=== PATIENT | female | born 1960 | race Caucasian/White ===

== ENCOUNTER 2017-07-12 15:13 | Outpatient (CLI) | payer OTHER | END 2017-07-12 15:14 | disposition home or self-care (01) | LOC: BICMAMMO 15:13 | PROVIDERS: ATTEND Family Medicine | DX: N63.20 Unspecified lump in the left breast, unspecified quadrant (principal); R92.1 Mammographic calcification found on diagnostic imaging of breast; Z80.3 Family history of malignant neoplasm of breast | CPT/HCPCS: 77066; G0279 ==

== ENCOUNTER 2017-07-20 08:37 | Outpatient (CLI) | payer OTHER ==
[2017-07-20] MEDS ORDERED: ISOVUE-370 76%-LOCM 1 ML ONE (13:24)
[2017-07-20] MEDS ORDERED: Gadobenate Dimeglumine 529 MG/1 ML (20ML VIAL) ONE (13:33)
== END 2017-07-20 08:38 | disposition home or self-care (01) ==
LOC: BICCT 08:37
PROVIDERS: ATTEND Surgery
DX: N63.10 Unspecified lump in the right breast, unspecified quadrant (principal); N63.20 Unspecified lump in the left breast, unspecified quadrant; K46.9 Unspecified abdominal hernia without obstruction or gangrene; I70.0 Atherosclerosis of aorta; Z90.49 Acquired absence of other specified parts of digestive tract; Z90.710 Acquired absence of both cervix and uterus; Z90.89 Acquired absence of other organs
CPT/HCPCS: 74177; A9579; C8908

== ENCOUNTER 2017-08-24 10:54 | Day surgery (SDC) | payer OTHER ==
[2017-08-23 16:43] VITALS: BMI 21.5
[2017-08-24] MEDS ORDERED: Albuterol Sulfate 1.25 MG/3 ML NEB ONE (12:48)
[2017-08-24] MEDS ORDERED: PHENYLEPHRINE-NS 100 MCG/ML 10 ML SYRINGE ONE (13:43)
[2017-08-24] MEDS ORDERED: Lidocaine 1% PF 5 ML VIAL ONE (13:43)
[2017-08-24] MEDS ORDERED: PROPOFOL 200 MG/20 ML VIAL ONE (13:43)
--- NOTE | 2017-08-24 14:18 | OP ---
DATE OF PROCEDURE: 08/24/2017 TITLE OF PROCEDURE: Colonoscopy with snare polypectomy. PREPROCEDURE DIAGNOSES: 1. High risk colon screening. 2. Family history of colon cancer in her sister at age 73. 3. Irregular bowel function. POSTPROCEDURE DIAGNOSES: 1. Exam to ileocecal valve; suboptimal bowel preparation. 2. Mild to moderate sigmoid diverticulosis. 3. Four diminutive rectal polyps removed by cold snare technique, two of the polyps were not retriev ed. 4. Diminutive sessile polyps in the sigmoid colon and descending colon (5 mm in size), removed by ho t snare electrocautery. 5. Diffusely tortuous colon. 6. Nonbleeding small internal hemorrhoids. 7. Poor bowel preparation, which limited exam for polyps less than 6 mm in size. PROCEDURE IN DETAIL: Written informed consent was obtained. The patient was brought to the endoscop y suite. Total intravenous anesthesia was administered by Ms. Yuridia Wolfe CRNA. The patient was placed in the left lateral decubitus position. A digital rectal exam was performed, which reveal ed small external tags. A Pentax video colonoscope was inserted through the anal canal and advanced under direct visualization to the ileocecal valve. Due to the redundancy of the colon and a poor bow el preparation, the colonoscope could not be advanced safely into the cecum. Endoscopic findings rev ealed frequent diverticular orifices without active bleeding in the sigmoid colon. In the rectum, fo ur diminutive sessile polyps were identified and removed. The largest polyp was 3 mm in diameter. T wo of the four polyps were retrieved for histology. Two additional polyps that were sessile were chuck ntified in the proximal sigmoid and descending colon. These polyps measured about 5 mm in size. Eac h was removed by snare electrocautery. Tissue was retrieved for pathology. No other synchronous gaviota yps were identified. Due to the presence of solid stool scattered throughout the colon and brown fec al liquid, exam of the mucosa was limited. A retroflex exam in the rectum demonstrated small interna l hemorrhoids that were not bleeding. The colon was decompressed as the colonoscope was removed from the patient. She was transferred to the day stay surgery area for post-procedure monitoring. There were no immediate complications. RECOMMENDATIONS: 1. Await pathology results. 2. Ask the patient to call me in 1 week for pathology results. 3. High fiber diet. 4. Sitz bath t.i.d. as needed for hemorrhoids. 5. Would recommend Citrucel or Metamucil 1 tablespoon q.a.m. after breakfast and MiraLax 17 grams in 8 ounces of water every evening. 6. Follow up in GI clinic in 3-4 weeks. 7. Suggest repeating a colonoscopy in 3 years pending pathology results of the resected polyps.
== END 2017-08-24 14:45 | disposition home or self-care (01) ==
LOC: SDC 10:54
PROVIDERS: ATTEND Internal Medicine Gastroenterology
PROC: 0DBM8ZX Excision of Descending Colon, Via Natural or Artificial Opening Endoscopic, Diagnostic (ICD-10-PCS; principal; 2017-08-24)
PROC: 0DBN8ZX Excision of Sigmoid Colon, Via Natural or Artificial Opening Endoscopic, Diagnostic (ICD-10-PCS; principal; 2017-08-24)
PROC: 0DBP8ZX Excision of Rectum, Via Natural or Artificial Opening Endoscopic, Diagnostic (ICD-10-PCS; principal; 2017-08-24)
DX: F32.9 Major depressive disorder, single episode, unspecified; Z79.899 Other long term (current) drug therapy; K64.8 Other hemorrhoids; Z91.018 Allergy to other foods; Z79.82 Long term (current) use of aspirin; K57.30 Diverticulosis of large intestine without perforation or abscess without bleeding; I50.9 Heart failure, unspecified; K63.5 Polyp of colon; Z88.8 Allergy status to other drugs, medicaments and biological substances; G47.30 Sleep apnea, unspecified; Z88.1 Allergy status to other antibiotic agents; E11.9 Type 2 diabetes mellitus without complications; Z88.5 Allergy status to narcotic agent; K63.89 Other specified diseases of intestine; F17.210 Nicotine dependence, cigarettes, uncomplicated; I25.2 Old myocardial infarction; F41.9 Anxiety disorder, unspecified; E07.9 Disorder of thyroid, unspecified; Z80.0 Family history of malignant neoplasm of digestive organs; M79.7 Fibromyalgia; Z91.010 Allergy to peanuts; M19.90 Unspecified osteoarthritis, unspecified site; J44.9 Chronic obstructive pulmonary disease, unspecified; K62.1 Rectal polyp; Z79.4 Long term (current) use of insulin
CPT/HCPCS: 36416; 88305; J2001; J2704

== ENCOUNTER 2017-12-28 16:05 | Inpatient (IN) | payer OTHER ==
[2017-12-28 17:10] LABS: #Eosinphils 0.1 thou/uL (0.0-0.7); #Lymphocytes 1.9 thou/uL (1.20-3.40); #Monocytes 0.6 thou/uL (0.11-0.59); #Neutrophils 9.8 thou/uL (1.40-6.50); %Basophils 0.2 % (0.0-1.0); %Eosinophils 0.8 % (0.0-10.0); %Lymphocytes 15.2 % (21.0-51.0); %Monocytes 5.1 % (0.0-10.0); %Neutrophils 78.6 % (42.0-75.0); Hemoglobin 14.3 g/dL (12.0-16.0); Mean Corpuscular HGB CONC 34.7 g/dL (32.0-36.0); Mean Corpuscular Hemoglobin 31.8 pg (27.0-31.0); Mean Corpuscular Volume 91.6 fL (78.0-98.0); Mean Platelet Volume 6.8 fL (7.4-10.4); Platelet Count 236 thou/uL (130-400); RBC Distribution Width 13.3 % (11.5-14.5); Red Blood Cell (RBC) Count 4.49 mill/uL (4.20-5.40); White Blood Cell (WBC) Count 12.5 thou/uL (4.8-10.8)
[2017-12-28 17:37] LABS: ALT (SGPT) 19 U/L (8-55); AST (SGOT) 11 U/L (5-34); Albumin 3.9 g/dL (3.5-5.0); Alkaline Phosphatase 124 U/L (40-150); Anion Gap 12 mmol/L (10-20); BUN (Urea Nitrogen) 11 mg/dL (9.8-20.1); Bilirubin, Total 0.4 mg/dL (0.2-1.2); Calc. Creatinine Clearance 0 mL/min (70-130); Calcium 9.4 mg/dL (7.8-10.44); Carbon Dioxide 31 mmol/L (22-29); Chloride 95 mmol/L (98-107); Estimated GFR-MDRD 50; Globulin 4.3 g/dL (2.4-3.5); Glucose 291 mg/dL (70-105); Protein, Total 8.2 g/dL (6.0-8.3); Sodium 134 mmol/L (136-145)
[2017-12-28] MEDS ORDERED: Fentanyl 100 MCG/2 ML VIAL ONE ×2 (17:51→18:47)
--- NOTE | 2017-12-28 18:20 | CT ---
CT ABDOMEN AND PELVIS WITH IV CONTRAST: 12/28/17 INDICATION: History of abdominal pain exacerbated in the last three to four days. COMPARISON: Prior exam dated 07/24/15. FINDINGS: There is a small right pleural effusion. There is peripancreatic inflammatory stranding present. The pancreatic parenchyma enhances. No drainable fluid collection is evident. Gallbladder is surgically absent. There is mild fatty infiltration of the liver, Kidneys are normal appearing. There is moderat e calcification involving the abdominal and pelvic vasculature. There is a moderate amount of retaine d stool within the colon. The uterus is surgically absent. No free fluid is evident. There is scatter ed degenerative and osteoarthritic change. IMPRESSION: 1. Findings of noncomplicated acute pancreatitis. 2. Small right pleural effusion. 3. Fatty liver. 4. Moderate amount of retained stool within the colon. 5. Other chronic findings as above . POS: DEBBY
[2017-12-28 18:40] LABS: CKMB 0.8 ng/mL (0-6.6); Troponin I Less than 0.010 ng/mL (< 0.028)
[2017-12-28 18:45] LABS: CK (CPK) 69 U/L (29-168); Lipase 31 U/L (8-78)
[2017-12-28 18:58] LABS: Bilirubin Negative (Negative); Blood, Urine Negative (Negative); Clarity CLEAR (Clear); Glucose, Urine (Dipstick) 250 mg/dL (Negative); Leukocyte Negative (Negative); Nitrite Negative (Negative); Protein, Urine (Dipstick) Negative (Neg-Trace); Specific Gravity, Urine 1.035 (1.002-1.036)
[2017-12-28] MEDS ORDERED: Ondansetron HCl/PF 4 MG/2 ML Vial IVP PRN (20:22)
[2017-12-28] MEDS ORDERED: Morphine 4 MG/ML VIAL SLOW IVP PRN ×2 (20:22→20:52)
[2017-12-28] MEDS ORDERED: Ondansetron ODT 4 MG TAB SL PRN (20:22)
[2017-12-28] MEDS ORDERED: D5 1/2 NS w/20 mEq KCL 1,000 ML IV SCH (20:30)
[2017-12-28] MEDS ORDERED: Ondansetron ODT 4 MG TAB PO PRN (20:45)
[2017-12-28] MEDS ORDERED: Milk Of Magnesia 30 ML UDCUP PO PRN (20:45)
[2017-12-28] MEDS ORDERED: Acetaminophen 325 MG TAB PO PRN (20:45)
[2017-12-28] MEDS ORDERED: Senokot 8.6 MG TAB PO PRN (20:45)
[2017-12-28] MEDS ORDERED: Nitroglycerin 0.4 MG TAB (25 Tab Bottle) SL PRN (20:53)
[2017-12-28] MEDS ORDERED: PROVENTIL INHALER 6.7 G (200 INHALATIONS) INH PRN (20:53)
[2017-12-28] MEDS ORDERED: Lidocaine 5% Patch TD PRN (20:53)
[2017-12-28] MEDS ORDERED: HumaLOG 300 UNITS/3 ML VIAL SC PRN ×2 (20:56)
[2017-12-28] MEDS ORDERED: Dextrose 5% in Water 1,000 ML IV PRN (20:56)
[2017-12-28] MEDS ORDERED: Dextrose 50% Abboject 50 ML SYRINGE SLOW IVP PRN (20:56)
[2017-12-28] MEDS ORDERED: Lidocaine Patch Removal TOP PRN (20:59)
[2017-12-28] MEDS ORDERED: Insulin Glargine 30 UNITS in Pre-Filled Syringe SC SCH (21:00)
[2017-12-28] MEDS: Lactated Ringer's 1,000 ML IV SCH (21:21)
[2017-12-28] MEDS: Nicotine 14 MG PATCH TD SCH (21:23)
--- NOTE | 2017-12-28 22:37 | PDOC.EVN ---
Attending Addendum - Attending Addendum Date/Time: 12/28/17 6956 I personally evaluated the patient and discussed the management with Dr. Vyas/ Nadege. I agree with the History, Examination, Assessment and Plan documented in their H &P with any addition or exceptions noted below. Patient is 57 yo F with PMH chronic pancreatitis with multiple hospitalizations for similar symptoms, DM, HTN, dCHF, COPD who presents with several day history of worsening abdominal pain. Reports pain with eating and drinking associated with nausea that has gotten worse today and with radiation to her back. Similar in nature to previous hospitalizations for pancreatitis. She is unaware of why she has developed multiple bouts of pancreatitis, but each has been confirmed on CT and has gotten better with typical treatment. She does have a history of tobacco usage as well as alcohol. On exam, her vitals are stable. She is chronically on 4L of O2 and is at her baseline. Abdomen exam pertinent for positive bowel sounds, mid epigastric tenderness to palpation. She has mild elevation in WBC, normal lipase and amylase (similar to previous bouts of pancreatitis). CT scan shows uncomplicated pancreatitis. Patient to be admitted for the followin. 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 My only explanation for normal enzyme levels would be that she has some degree of exocrine pancreas insufficiency as well. Will treat with IVF, pain control, and NPO status. If does not improve, will consider GI consult at that time. May need outpatient GI referral due to multiple bouts of similar issues. 2. COPD- oxygenation stable. Continue to monitor. 3. dCHF- will need to monitor for signs of volume overload. Will begin IV lasix if that becomes an issue. 4. DM- insulin regimen to keep blood sugars well controlled, holding oral medications.
--- NOTE | 2017-12-28 22:51 | PDOC.FPRHP ---
Addendum entered and electronically signed by Сергей Light MD 12/29/17 07:52: Addendum for PMHx and Vitals: Med Hx: Levothyroxine 175 QD, Aspirin 81 QD, Isorbide 30 QD, Nitro 0.3 PRN, Clonazepam 1 TID, Lasix 40 QD, Spirivia 18, Proair 90, Atorvastatin 40 QD, Cymbalta 60 qd, Levemir 60/50 QAM/HS, amitryptyline 25 qd, Losartan 25 qd, wellbutrin 10 qd PMHx:Umbilical hernia, DM2, asthma, hypothyroid, HLD, CHF with preserved EF, COPD Surgical: Hysterectomy, faith, cath with stent Allergies: Codeine, morphine, tetracycline Social: Former marijuana, 1/5 of whiskey for 20 year, tobacco abuse for 50 pack year Vital: 98.5F, 130/73, Pulse 86, Resp 16, 94% on 4L Original Note: - History of Present Illness Chief Complaint: Abd pain History of Present Illness: 57F with known history of pancreatitis present for abd pain. This recent episode has been going on for 1 week. It is left sided pain. She can not describe the quality. It is 8/10 pain at worst, radiates diffusely, worse with food, relieved by laying down. Associated with nausea. She specifically denies fever, chills, emesis, diarrhea. She does endorse constipation for over a week now. ED Course: In the ED, she received fentynl 200 mcg, 1 L NS - Allergies/Adverse Reactions Allergies Allergy/AdvReac Type Severity Reaction Status Date / Time codeine Allergy severe Verified 12/28/17 20:22 confusion, violent morphine Allergy vomiting Verified 12/28/17 20:22 Poultry Allergy flushing, Verified 12/28/17 20:22 burning sensation tetracycline Allergy Nausea Verified 12/28/17 20:22 aspirin AdvReac Nausea Verified 12/28/17 20:22 - Home Medications Medication Instructions Recorded Confirmed Type Albuterol Sulfate [Proair HFA] 2 puff INH QID PRN 05/20/15 12/28/17 History Amitriptyline HCl 25 mg PO HS 05/20/15 12/28/17 History Aspirin [Aspirin EC] 81 mg PO DAILY 05/20/15 12/28/17 History Atorvastatin Calcium 40 mg PO HS 05/20/15 12/28/17 History DULoxetine [Cymbalta] 60 mg PO DAILY 05/20/15 12/28/17 History Furosemide [Lasix] 40 mg PO DAILY 05/20/15 12/28/17 History Gabapentin 900 mg PO TID 05/20/15 12/28/17 History Ibuprofen 600 mg PO TID PRN 05/20/15 12/28/17 History Insulin Aspart [NovoLOG FlexPen] 6 unit SC AC 05/20/15 12/28/17 History Ipratropium Kellogg [Atrovent] 2.5 ml NEB QID 05/20/15 12/28/17 History Isosorbide Mononitrate [Isosorbide 30 mg PO DAILY 05/20/15 12/28/17 History Mononitrate ER] Levemir Flexpen [Levemir FlexPen] 60 unit SC QAM 05/20/15 12/28/17 History Levothyroxine Sodium 175 mcg PO DAILY 05/20/15 12/28/17 History Lidocaine 5% Patch [Lidoderm 5% 1 patch TOP PRN PRN 05/20/15 12/28/17 History Patch] Losartan [Cozaar] 25 mg PO 2100 05/20/15 12/28/17 History Nitroglycerin 0.4 mg SL Q5MIN PRN 05/20/15 12/28/17 History Tiotropium [Spiriva Handihaler] 18 mcg INH DAILY 05/20/15 12/28/17 History clonazePAM 1 mg PO TID 05/20/15 12/28/17 History metFORMIN HCl [metFORMIN HCl ER] 1,000 mg PO QPM 05/20/15 12/28/17 History Beclomethasone Dipropionate [Qvar 2 puff INH BID 12/28/17 12/28/17 History Redihaler] buPROPion HCl [buPROPion HCl XL] 300 mg PO DAILY 12/28/17 12/28/17 History - History PMHx: PSHx: FHx: Social: - Review of Systems General: reports: weight/appetite/sleep changes (Decreased appetitie). denies: fever/chills Eyes: denies: vision changes ENT: denies: nasal congestion, rhinorrhea Respiratory: denies: cough, shortness of breath Cardiovascular: denies: chest pain, palpitation Gastrointestinal: reports: nausea, constipation, abdominal pain Genitourinary: denies: dysuria, discharge Skin: reports: rashes (Has new rash on lower leg, says it was due to bug bites) Musculoskeletal: denies: pain, tenderness Neurological: denies: numbness, weakness Psychological: reports: anxiety, depression - Vital signs BP: [] HR: [] RR: [] Tmax: [] Pox: []% on [] Wt: [] - Physical Exam Constitutional: NAD HEENT: normocephalic and atraumatic, TM's clear and intact, grossly normal hearing, MMM Neck: supple, trachea midline Chest: no-tender to palpation, no lesions Heart: RRR, other (Possible 1/6 systolic murmur) Lungs: CTAB, no respiratory distress, other (Dimished breath sound) Abdomen: soft, bowel sounds present, other (Tender to palpation on left quadrant. No guradiing or rigidity) Musculoskeletal: normal structure, normal tone Neurological: no focal deficit, CN II-XII intact Skin: other (Excoriation on left leg, without erythema or discharge) Heme/Lymphatic: no unusual bruising or bleeding Psychiatric: normal mood and affect, good judgment and insight, intact recent and remote memory FMR H&P: Results - Labs Result Diagrams: 12/29/17 03:46 12/29/17 03:46 Lab results: WBC 12.5 thou/uL (4.8-10.8) H 12/28/17 17:03 Hgb 14.3 g/dL (12.0-16.0) 12/28/17 17:03 Hct 41.2 % (36.0-47.0) 12/28/17 17:03 MCV 91.6 fL (78.0-98.0) 12/28/17 17:03 Plt Count 236 thou/uL (130-400) 12/28/17 17:03 Neutrophils % 78.6 % (42.0-75.0) H 12/28/17 17:03 Sodium 134 mmol/L (136-145) L 12/28/17 17:03 Potassium 4.0 mmol/L (3.5-5.1) 12/28/17 17:03 Chloride 95 mmol/L (98-107) L 12/28/17 17:03 Carbon Dioxide 31 mmol/L (22-29) H 12/28/17 17:03 BUN 11 mg/dL (9.8-20.1) 12/28/17 17:03 Creatinine 1.12 mg/dL (0.6-1.1) H 12/28/17 17:03 Glucose 291 mg/dL (70-105) H 12/28/17 17:03 Calcium 9.4 mg/dL (7.8-10.44) 12/28/17 17:03 Total Bilirubin 0.4 mg/dL (0.2-1.2) 12/28/17 17:03 AST 11 U/L (5-34) 12/28/17 17:03 ALT 19 U/L (8-55) 12/28/17 17:03 Alkaline Phosphatase 124 U/L (40-150) 12/28/17 17:03 Creatine Kinase 69 U/L (29-168) 12/28/17 17:03 CK-MB (CK-2) 0.8 ng/mL (0-6.6) 12/28/17 17:03 B-Natriuretic Peptide 49.3 pg/mL (0-100) 12/28/17 17:03 Serum Total Protein 8.2 g/dL (6.0-8.3) 12/28/17 17:03 Albumin 3.9 g/dL (3.5-5.0) 12/28/17 17:03 Lipase 31 U/L (8-78) 12/28/17 17:03 Urine Ketones Negative mg/dL (Negative) 12/28/17 18:38 Urine Blood Negative (Negative) 12/28/17 18:38 Urine Nitrite Negative (Negative) 12/28/17 18:38 Ur Leukocyte Esterase Negative (Negative) 12/28/17 18:38 - EKG Interpretation EKG: No ST changes concerning for ACS FMR H&P: A/P - Problem List (1) Pancreatitis Current Visit: No Status: Acute Code(s): K85.9 - ACUTE PANCREATITIS, UNSPECIFIED * DO NOT USE * Qualifiers: Chronicity: acute Pancreatitis type: idiopathic Assessment and Plan: Patient had about 5-6 bout of pancreatitis over 15 years. Pancreatitis confirmed on CT. Possibly idiopathic, versus med/diabetes related. Lipase and amylase low, may represent chronic pancreatitis resulting in lose of pancreas secretory function. Plan, fluid, NPO status and pain control. Advance diet as tolerated. Sees [facility] outpatient. At this time, defer lipid panel and other work up for outpatient. (2) PA (acute kidney injury) Current Visit: Yes Status: Acute Code(s): N17.9 - ACUTE KIDNEY FAILURE, UNSPECIFIED Assessment and Plan: Cr mildly above baseline at 1.1 Plan, fluid resuscitation. Recheck with morning lab. (3) Hyperglycemia Current Visit: Yes Status: Acute Code(s): R73.9 - HYPERGLYCEMIA, UNSPECIFIED Assessment and Plan: Not concerning for DKA due to normal to high level of bicarb. Plan, treat with basal and sliding scale insulin. Check ACHS (4) HLD (hyperlipidemia) Current Visit: No Status: Acute Code(s): E78.5 - HYPERLIPIDEMIA, UNSPECIFIED Assessment and Plan: Chronic issue. Plan, hold home medication until patient can tolerated PO. (5) CKD (chronic kidney disease) Current Visit: No Status: Chronic Code(s): N18.9 - CHRONIC KIDNEY DISEASE, UNSPECIFIED Qualifiers: Chronic kidney disease stage: stage 2 (mild) Qualified Code(s): N18.2 - Chronic kidney disease, stage 2 (mild) Assessment and Plan: Known issue. Continue to monitor with daily lab. Fluid hydration. (6) Diabetes mellitus type 2 in obese Current Visit: No Status: Chronic Code(s): E11.9 - TYPE 2 DIABETES MELLITUS WITHOUT COMPLICATIONS; E66.9 - OBESITY, UNSPECIFIED Assessment and Plan: Chronic issue. Glucose currently uncontrolled Plan, continue insulin to prevent DKA. Recheck with ACHS accucheck. (7) Diastolic CHF Current Visit: No Status: Chronic Code(s): I50.30 - UNSPECIFIED DIASTOLIC ( CONGESTIVE) HEART FAILURE Assessment and Plan: Known issue. Stable at this time. Patient not symptomatic. (8) HTN (hypertension) Current Visit: No Status: Chronic Code(s): I10 - ESSENTIAL (PRIMARY) HYPERTENSION Assessment and Plan: BP at appropriate limit at this time. Stable issue Plan, hold BP med at this time due to patient NPO. Will start IV med if HTN not controlled. (9) RO on CPAP Current Visit: No Status: Chronic Code(s): G47.33 - OBSTRUCTIVE SLEEP APNEA (ADULT) (PEDIATRIC) Assessment and Plan: Chronic issue Plan to order CPAP for patient at night. (10) Tobacco abuse Current Visit: No Status: Chronic Code(s): Z72.0 - TOBACCO USE Assessment and Plan: Chronic issue Advised cessation. Started on nicotine patch. (11) Depression with anxiety Current Visit: No Status: Acute Assessment and Plan: Chronic issue. Patient feel it is stable Plan, continue with medication when patient can tolerate PO intake. - Plan Disposition/LOS: 2 days at least with inpatient FMR H&P: Upper Level - Plan Date/Time: 12/28/17 9289 I, [], have evaluated this patient and agree with findings/plan as outlined by wireless internet installer resident. Pertinent changes/additions are listed here. Attending Addendum - Attending Addendum Date/Time: 12/29/17 5991 I personally evaluated the patient and discussed the management with Dr. Light. I agree with the History, Examination, Assessment and Plan documented above with any addition or exceptions noted below. Please see event note from 12/28/17 for full attending details.
[2017-12-29] MEDS: Ondansetron HCl/PF 4 MG/2 ML Vial IVP PRN ×2 (04:46→13:52)
[2017-12-29] MEDS: Lactated Ringer's 1,000 ML IV SCH ×4 (04:47→20:40)
[2017-12-29 04:58] LABS: #Eosinphils 0.1 thou/uL (0.0-0.7); #Lymphocytes 2.3 thou/uL (1.20-3.40); #Monocytes 0.6 thou/uL (0.11-0.59); #Neutrophils 8.1 thou/uL (1.40-6.50); %Basophils 0.3 % (0.0-1.0); %Lymphocytes 20.7 % (21.0-51.0); %Monocytes 5.1 % (0.0-10.0); Hemoglobin 13.4 g/dL (12.0-16.0); Mean Corpuscular HGB CONC 33.5 g/dL (32.0-36.0); Mean Corpuscular Hemoglobin 30.9 pg (27.0-31.0); Mean Corpuscular Volume 92.4 fL (78.0-98.0); Mean Platelet Volume 7.2 fL (7.4-10.4); Platelet Count 218 thou/uL (130-400); RBC Distribution Width 13.4 % (11.5-14.5); Red Blood Cell (RBC) Count 4.34 mill/uL (4.20-5.40); White Blood Cell (WBC) Count 11.1 thou/uL (4.8-10.8)
[2017-12-29 05:09] LABS: ALT (SGPT) 16 U/L (8-55); AST (SGOT) 9 U/L (5-34); Albumin 3.6 g/dL (3.5-5.0); Alkaline Phosphatase 101 U/L (40-150); Anion Gap 10 mmol/L (10-20); BUN (Urea Nitrogen) 8 mg/dL (9.8-20.1); Bilirubin, Total 0.5 mg/dL (0.2-1.2); Calc. Creatinine Clearance 111 mL/min (70-130); Calcium 8.8 mg/dL (7.8-10.44); Carbon Dioxide 31 mmol/L (22-29); Chloride 98 mmol/L (98-107); Estimated GFR-MDRD 64; Globulin 3.8 g/dL (2.4-3.5); Glucose 179 mg/dL (70-105); Potassium 3.9 mmol/L (3.5-5.1); Protein, Total 7.4 g/dL (6.0-8.3); Sodium 135 mmol/L (136-145)
[2017-12-29] MEDS: Morphine 4 MG/ML VIAL SLOW IVP PRN ×3 (05:15→17:58)
--- NOTE | 2017-12-29 05:35 | PDOC.FM ---
- Subjective Subjective: Pt. states she did ok over night. She states that her abdominal pain was diffuse across her upper abdomen but her pain is currently controlled. She denies nausea, vomiting overnight. She denies chest pain, dyspnea, or SOB. - Objective MAR Reviewed: Yes Vital Signs & Weight: Vital Signs (12 hours) Temp Pulse Resp BP Pulse Ox 12/29/17 04:24 98.2 F 85 18 135/82 97 12/29/17 00:21 98.2 F 86 18 126/72 96 12/28/17 20:05 98.5 F 85 18 122/76 98 12/28/17 20:00 98.5 F 85 18 98 Weight Weight 101.605 kg Result Diagrams: 12/29/17 03:46 12/29/17 03:46 <Jr Suersh - Last Filed: 12/29/17 09:01> - Objective Vital Signs & Weight: Vital Signs (12 hours) Temp Pulse Resp BP Pulse Ox 12/29/17 11:21 98.0 F 95 20 106/73 93 L 12/29/17 10:16 78 18 94 L 12/29/17 08:00 98.2 F 83 22 H 12/29/17 07:20 98.2 F 83 22 H 114/76 98 12/29/17 06:43 92 18 95 12/29/17 06:38 92 18 95 12/29/17 04:24 98.2 F 85 18 135/82 97 Weight Weight 101.605 kg I&O: 12/28/17 12/29/17 12/30/17 06:59 06:59 06:59 Intake Total 1650 Balance 1650 Result Diagrams: 12/29/17 03:46 12/29/17 03:46 <Donavan Moreno - Last Filed: 12/29/17 13:31> Phys Exam - Physical Examination Constitutional: NAD (sleeping with CPAP) HEENT: PERRLA dry mucus membranes Neck: full ROM Unable to assess JVD Respiratory: no wheezing, clear to auscultation bilateral Cardiovascular: RRR, no significant murmur Gastrointestinal: soft, no distention, positive bowel sounds Mild tenderness to palpation Musculoskeletal: no edema, pulses present Neurological: normal sensation, moves all 4 limbs Psychiatric: normal affect, A&O x 3 Skin: normal turgor, cap refill <2 seconds <Jr Suresh - Last Filed: 12/29/17 09:01> Dx/Plan (1) Acute kidney injury superimposed on chronic kidney disease Code(s): N17.9 - ACUTE KIDNEY FAILURE, UNSPECIFIED; N18.9 - CHRONIC KIDNEY DISEASE, UNSPECIFIED Status: Acute (2) Constipation Code(s): K59.00 - CONSTIPATION, UNSPECIFIED Status: Acute (3) Depression with anxiety Status: Acute (4) Pancreatitis Code(s): K85.9 - ACUTE PANCREATITIS, UNSPECIFIED * DO NOT USE * Status: Acute Qualifiers: Chronicity: acute Pancreatitis type: idiopathic (5) Diabetes mellitus type 2 in obese Code(s): E11.9 - TYPE 2 DIABETES MELLITUS WITHOUT COMPLICATIONS; E66.9 - OBESITY , UNSPECIFIED Status: Chronic (6) Diastolic CHF Code(s): I50.30 - UNSPECIFIED DIASTOLIC (CONGESTIVE) HEART FAILURE Status: Chronic (7) HTN (hypertension) Code(s): I10 - ESSENTIAL (PRIMARY) HYPERTENSION Status: Chronic (8) RO on CPAP Code(s): G47.33 - OBSTRUCTIVE SLEEP APNEA (ADULT) (PEDIATRIC) Status: Chronic (9) Tobacco abuse Code(s): Z72.0 - TOBACCO USE Status: Chronic - Plan Plan: This is a 57 yo female with a PMH of HTN, HFpEF, HLD, RO on CPAP, CKD, DM2 Pancreatitis -CT ab/pelvis shows signs consistent with uncomplicated pancreatitis. Pt. is NPO and is receiving IVF. Pain is being managed. PA -Improving from last night, continue IVF resuscitation DM2 -Continue basal insulin and SSI, ACHS sliding scale Hypertension -Pt. is NPO, will hold BP meds for now. Constipation -We will add on miralax when pt. can tolerate PO CKD -Will monitor and continue IVF HFpEF -Chronic issue, pt. is asymptomatic at this time HLD -Hold home meds until pt. can tolerate PO RO on CPAP -Plan on CPAP for the night Tobacco abuse -Nicotine patch, encourage cessation Depression with anxiety -Will continue home medications when pt can tolerate PO Code: FULL Prophylaxis: lovenox Family: none at bedside Disposition: 2-3 days <Jr Suresh - Last Filed: 12/29/17 09:01> Attending Addendum - Attending Addendum Date/Time: 12/29/17 7154 I personally evaluated the patient and discussed the management with Dr. Suresh I agree with the History, Examination, Assessment and Plan documented above with any addition or exceptions noted below. Recurrent bouts of pancreatitis now appears chronic condition, LFT's and lipase wnl no pseudocyst need further evaluation and mitigation any precipitating factors. Recommend hold metformin with presumed depleted volume status and manage BS with basal and short acting insulin, pain currently well controlled add PPI if none onboard. <Donavan Moreno - Last Filed: 12/29/17 13:31>
[2017-12-29] MEDS: Mometasone 100 MCG HFA INHALER INH SCH ×2 (06:38→19:39)
[2017-12-29] MEDS: Ipratropium Bromide 2.5 ml Neb NEB SCH ×4 (06:43→19:36)
[2017-12-29] MEDS ORDERED: Spiriva 18 MCG CAP (Box of 5 Caps) INH SCH (09:00)
[2017-12-29] MEDS ORDERED: Insulin Glargine 30 UNITS in Pre-Filled Syringe SC SCH (09:00)
[2017-12-29] MEDS: Enoxaparin Sodium 40 MG/0.4 ML SYRINGE SC SCH (09:10)
[2017-12-29 10:00] LABS: Hemoglobin A1c 8.4 % (4.0-6.0)
[2017-12-29] MEDS: Nicotine 14 MG PATCH TD SCH (20:06)
[2017-12-29] MEDS ORDERED: Insulin Glargine 15 UNITS in Pre-Filled Syringe 1 EACH SC SCH (20:32)
[2017-12-29] MEDS ORDERED: diphenhydrAMINE 2% CREAM 28.4 GM TUBE TOP PRN (22:07)
[2017-12-30] MEDS: Morphine 4 MG/ML VIAL SLOW IVP PRN (02:05)
[2017-12-30] MEDS: Ondansetron HCl/PF 4 MG/2 ML Vial IVP PRN (02:05)
[2017-12-30] MEDS: Lactated Ringer's 1,000 ML IV SCH ×2 (04:17→05:00)
[2017-12-30 04:58] LABS: #Eosinphils 0.1 thou/uL (0.0-0.7); #Lymphocytes 2.4 thou/uL (1.20-3.40); #Monocytes 0.6 thou/uL (0.11-0.59); #Neutrophils 6.8 thou/uL (1.40-6.50); %Basophils 0.4 % (0.0-1.0); %Eosinophils 1.3 % (0.0-10.0); %Lymphocytes 24.3 % (21.0-51.0); %Monocytes 5.8 % (0.0-10.0); %Neutrophils 68.3 % (42.0-75.0); Hemoglobin 12.5 g/dL (12.0-16.0); Mean Corpuscular HGB CONC 34.5 g/dL (32.0-36.0); Mean Corpuscular Hemoglobin 31.7 pg (27.0-31.0); Mean Corpuscular Volume 91.9 fL (78.0-98.0); Mean Platelet Volume 7.2 fL (7.4-10.4); Platelet Count 203 thou/uL (130-400); RBC Distribution Width 13.3 % (11.5-14.5); Red Blood Cell (RBC) Count 3.93 mill/uL (4.20-5.40); White Blood Cell (WBC) Count 9.9 thou/uL (4.8-10.8)
[2017-12-30 05:44] LABS: ALT (SGPT) 14 U/L (8-55); AST (SGOT) 11 U/L (5-34); Albumin 3.4 g/dL (3.5-5.0); Alkaline Phosphatase 88 U/L (40-150); Anion Gap 9 mmol/L (10-20); BUN (Urea Nitrogen) 7 mg/dL (9.8-20.1); Bilirubin, Total 0.5 mg/dL (0.2-1.2); Calc. Creatinine Clearance 112 mL/min (70-130); Calcium 8.8 mg/dL (7.8-10.44); Carbon Dioxide 31 mmol/L (22-29); Chloride 97 mmol/L (98-107); Estimated GFR-MDRD 65; Globulin 3.6 g/dL (2.4-3.5); Glucose 155 mg/dL (70-105); Potassium 3.9 mmol/L (3.5-5.1); Sodium 133 mmol/L (136-145)
--- NOTE | 2017-12-30 05:44 | PDOC.FM ---
- Subjective Subjective: Pt. states that her pain is better today. She reports that it is no longer diffuse and is now localized to her epigastric region. She states she had some nausea earlier but the zofran helped. She asked about starting clear liquids but denies any hunger this morning. She denies chest pain, shortness of breath, dyspnea, constipation, or diarrhea. She did feel more full since she stopped taking her lasix. - Objective MAR Reviewed: Yes Vital Signs & Weight: Vital Signs (12 hours) Temp Pulse Resp BP Pulse Ox 12/30/17 02:00 108/66 12/29/17 20:00 98.5 F 89 18 99 12/29/17 19:39 98.5 F 89 18 105/69 99 12/29/17 19:36 72 16 94 L Weight Weight 101.605 kg I&O: 12/28/17 12/29/17 12/30/17 06:59 06:59 06:59 Intake Total 3450 Balance 3450 Result Diagrams: 12/30/17 04:26 12/30/17 04:26 <Jr Suresh - Last Filed: 12/30/17 07:50> - Objective Vital Signs & Weight: Vital Signs (12 hours) Temp Pulse Resp BP Pulse Ox 12/30/17 10:16 83 18 92 L 12/30/17 08:00 98.2 F 86 18 99 12/30/17 07:36 98.2 F 91 20 123/81 92 L 12/30/17 07:34 85 18 92 L 12/30/17 02:00 108/66 Weight Weight 101.605 kg I&O: 12/29/17 12/30/17 12/31/17 06:59 06:59 06:59 Intake Total 4850 Balance 4850 Result Diagrams: 12/30/17 04:26 12/30/17 04:26 <Todd Cruz - Last Filed: 12/30/17 12:45> Phys Exam - Physical Examination Constitutional: NAD HEENT: PERRLA dry mucus membranes Neck: no JVD, full ROM Respiratory: no wheezing, clear to auscultation bilateral Cardiovascular: RRR, no significant murmur Gastrointestinal: soft, no distention, positive bowel sounds Tender to palpation in epigastric region Musculoskeletal: no edema, pulses present Neurological: normal sensation, moves all 4 limbs Psychiatric: normal affect, A&O x 3 Skin: normal turgor, cap refill <2 seconds <Jr Suresh - Last Filed: 12/30/17 07:50> Dx/Plan (1) Acute kidney injury superimposed on chronic kidney disease Code(s): N17.9 - ACUTE KIDNEY FAILURE, UNSPECIFIED; N18.9 - CHRONIC KIDNEY DISEASE, UNSPECIFIED Status: Acute (2) Constipation Code(s): K59.00 - CONSTIPATION, UNSPECIFIED Status: Acute (3) Depression with anxiety Status: Acute (4) Pancreatitis Code(s): K85.9 - ACUTE PANCREATITIS, UNSPECIFIED * DO NOT USE * Status: Acute Qualifiers: Chronicity: acute Pancreatitis type: idiopathic (5) Diabetes mellitus type 2 in obese Code(s): E11.9 - TYPE 2 DIABETES MELLITUS WITHOUT COMPLICATIONS; E66.9 - OBESITY , UNSPECIFIED Status: Chronic (6) Diastolic CHF Code(s): I50.30 - UNSPECIFIED DIASTOLIC (CONGESTIVE) HEART FAILURE Status: Chronic (7) HTN (hypertension) Code(s): I10 - ESSENTIAL (PRIMARY) HYPERTENSION Status: Chronic (8) RO on CPAP Code(s): G47.33 - OBSTRUCTIVE SLEEP APNEA (ADULT) (PEDIATRIC) Status: Chronic (9) Tobacco abuse Code(s): Z72.0 - TOBACCO USE Status: Chronic - Plan Plan: This is a 57 yo female with a PMH of HTN, HFpEF, HLD, RO on CPAP, CKD, DM2 Pancreatitis -CT ab/pelvis shows signs consistent with uncomplicated pancreatitis. Pt. is NPO and is receiving IVF. Pain is being managed. PA -Improving from last night, continue IVF resuscitation DM2 -Continue basal insulin and SSI, ACHS sliding scale Hypertension -Pt. is NPO, will hold BP meds for now. Current BP is 108/66 Constipation -We will add on miralax when pt. can tolerate PO CKD -Will monitor and continue IVF HFpEF -Chronic issue, pt. is asymptomatic at this time, HLD -Hold home meds until pt. can tolerate PO RO on CPAP -Plan on CPAP for the night Tobacco abuse -Nicotine patch, encourage cessation Depression with anxiety -Will continue home medications when pt can tolerate PO Code: FULL Prophylaxis: lovenox, PPI Family: none at bedside Disposition: 2-3 days <Jr Suresh - Last Filed: 12/30/17 07:50> Attending Addendum - Attending Addendum Date/Time: 12/30/17 4579 I personally evaluated the patient and discussed the management with Dr. Suresh. I agree with the History, Examination, Assessment and Plan documented above with any addition or exceptions noted below. Pain is gone. Abd is nontender. Appetite has returned. Will restart diet and advance. <Todd Cruz - Last Filed: 12/30/17 12:45>
[2017-12-30] MEDS: Ipratropium Bromide 2.5 ml Neb NEB SCH ×3 (07:34→14:47)
[2017-12-30 07:37] VITALS: BP 123/81; TEMP 98.2
[2017-12-30] MEDS ORDERED: Pantoprazole 40 MG VIAL IVP SCH (09:00)
[2017-12-30] MEDS ORDERED: Furosemide 20 MG/2 ML VIAL SLOW IVP SCH (09:00)
[2017-12-30] MEDS: Enoxaparin Sodium 40 MG/0.4 ML SYRINGE SC SCH (09:15)
[2017-12-30] MEDS ORDERED: Hydrocerin (Eucerin) Cream 120 gm Jar TOP PRN (12:05)
--- NOTE | 2017-12-31 04:05 | DIS-2 ---
DATE OF ADMISSION: 12/28/2017 DATE OF DISCHARGE: 12/30/2017 RESIDENT: Jr Suresh DO ADMITTING ATTENDING: Dr. Norm Cai. DISCHARGING ATTENDING: Dr. Todd Cruz. CONSULTS: None. PROCEDURES: Abdomen and pelvis CT, Impression: Findings of noncomplicated acute pancreatitis, small right pleural effusion, fatty liver, moderate amount of retained stool in the colon with other findi ngs. PRIMARY DIAGNOSES: Pancreatitis, acute kidney injury, hyperglycemia. SECONDARY DIAGNOSES: Hyperlipidemia, chronic kidney disease, diabetes type 2, heart failure with pre served ejection fraction, hypertension, obstructive sleep apnea on CPAP, tobacco abuse, depression, a nd anxiety. DISCHARGE MEDICATIONS: Zofran 4 mg p.o. q.6 hours p.r.n., Protonix 40 mg p.o. daily. HOSPITAL COURSE: This is a 57-year-old female with past medical history of pancreatitis, presents fo r abdominal pain, recent episode has been going on for about a week. Left-sided pain. She cannot de scribe the quality, 8/10 pain, radiates diffusely, worse with food. There is associated nausea. Pat anuja denies fever, chills, emesis, diarrhea. She does endorse constipation for over a week. Patient received CT abdomen and pelvis results as above. Patient was made n.p.o. and given morphine for klever n management. Patient's pain improved. Patient tolerated clear-liquid diet, x2 meals. The afternoo n of the , patient states that she wanted to go home. Patient understood that she may be in pain later today. She said she has done this before and she ready to go. Patient was progressing well a nd deemed acceptable. DISPOSITION: Stable. DISCHARGE INSTRUCTIONS: 1. Location: Home. 2. Diet: Diabetic diet. 3. Activity: As tolerated. 4. Follow up: Follow up with primary care physician in 1-2 weeks.
== END 2017-12-30 15:02 | disposition home or self-care (01) | DRG 439 ==
LOC: ERS 16:05 → T4-B 20:19
PROVIDERS: ADMIT Student in an Organized Health Care Education/Training Program; ATTEND Student in an Organized Health Care Education/Training Program
DX: K85.90 Acute pancreatitis without necrosis or infection, unspecified (principal); N17.9 Acute kidney failure, unspecified; I13.0 Hypertensive heart and chronic kidney disease with heart failure and stage 1 through stage 4 chronic kidney disease, or unspecified chronic kidney disease; I50.32 Chronic diastolic (congestive) heart failure; E03.9 Hypothyroidism, unspecified; E78.5 Hyperlipidemia, unspecified; J44.9 Chronic obstructive pulmonary disease, unspecified; F17.210 Nicotine dependence, cigarettes, uncomplicated; F41.9 Anxiety disorder, unspecified; F32.9 Major depressive disorder, single episode, unspecified; N18.2 Chronic kidney disease, stage 2 (mild); E11.22 Type 2 diabetes mellitus with diabetic chronic kidney disease; E66.9 Obesity, unspecified; G47.33 Obstructive sleep apnea (adult) (pediatric); K59.00 Constipation, unspecified; E11.65 Type 2 diabetes mellitus with hyperglycemia; Z79.82 Long term (current) use of aspirin; Z88.5 Allergy status to narcotic agent; Z95.5 Presence of coronary angioplasty implant and graft
CPT/HCPCS: 36415; 36416; 74177; 80053; 81003; 82150; 82553; 82977; 83036; 83690; 83880; 84484; 85025; 93005; 94640; 94664; 96374; 96376; C9113; J1650; J2270; J2405; J3010; J7120; J7644

== ENCOUNTER 2018-01-24 14:56 | Outpatient (CLI) | payer OTHER ==
[2018-01-24 16:23] LABS: #Basophils 0.1 thou/uL (0.0-0.2); #Eosinphils 0.1 thou/uL (0.0-0.7); #Lymphocytes 3.2 thou/uL (1.20-3.40); #Monocytes 0.5 thou/uL (0.11-0.59); #Neutrophils 6.2 thou/uL (1.40-6.50); %Basophils 1.1 % (0.0-1.0); %Eosinophils 1.3 % (0.0-10.0); %Lymphocytes 31.6 % (21.0-51.0); %Monocytes 4.9 % (0.0-10.0); %Neutrophils 61.1 % (42.0-75.0); Hemoglobin 15.6 g/dL (12.0-16.0); Mean Corpuscular HGB CONC 34.6 g/dL (32.0-36.0); Mean Corpuscular Volume 92.5 fL (78.0-98.0); Mean Platelet Volume 7.8 fL (7.4-10.4); Platelet Count 267 thou/uL (130-400); RBC Distribution Width 13.7 % (11.5-14.5); Red Blood Cell (RBC) Count 4.88 mill/uL (4.20-5.40); White Blood Cell (WBC) Count 10.2 thou/uL (4.8-10.8)
[2018-01-24 16:43] LABS: Anion Gap 16 mmol/L (10-20); BUN (Urea Nitrogen) 16 mg/dL (9.8-20.1); Calc. Creatinine Clearance 0 mL/min (70-130); Calcium 9.6 mg/dL (7.8-10.44); Carbon Dioxide 30 mmol/L (22-29); Chloride 96 mmol/L (98-107); Estimated GFR-MDRD 53; Glucose 96 mg/dL (70-105); Potassium 3.9 mmol/L (3.5-5.1); Sodium 138 mmol/L (136-145)
== END 2018-01-24 14:57 | disposition home or self-care (01) ==
LOC: LABBT 14:56
PROVIDERS: ATTEND Surgery
DX: Z01.812 Encounter for preprocedural laboratory examination (principal); K42.9 Umbilical hernia without obstruction or gangrene
CPT/HCPCS: 80048; 85025

== ENCOUNTER 2018-02-19 09:52 | Emergency (ER) | payer OTHER ==
[2018-02-19] MEDS ORDERED: Sulfameth/Trimethoprim DS 800-160mg TAB ONE ×2 (11:19→11:20)
--- NOTE | 2018-02-19 12:04 | ULT ---
SOFT TISSUE ULTRASOUND: Date: 02/19/18 HISTORY: Previous umbilical hernia surgery. Draining x1 month. Patient is experiencing erythema and swelling. Increased drainage. COMPARISON: None. TECHNIQUE: Targeted sonographic imaging of the region of interest performed. Static images reviewed. FINDINGS: Static images demonstrate an ill-defined area of soft tissue edema. There is no evidence of a drainab le abscess/well-defined fluid collection. There is some increased vascularity in the region of concer n. Phlegmonous change is suspected. Small microabscesses cannot be excluded. There is no evidence of a drainable fluid collection by sonography. IMPRESSION: Presumed phlegmonous change with possibly small microabscesses in the region of concern. By sonograph y, a drainable fluid collection is not appreciated. CT with oral and IV contrast if clinically warran carmella. POS: [facility]
== END 2018-02-19 13:29 | disposition home or self-care (01) ==
LOC: ERS 09:52
DX: L03.311 Cellulitis of abdominal wall (principal); R10.33 Periumbilical pain; E11.9 Type 2 diabetes mellitus without complications; E78.5 Hyperlipidemia, unspecified; I50.9 Heart failure, unspecified; J44.9 Chronic obstructive pulmonary disease, unspecified; E03.9 Hypothyroidism, unspecified; F17.210 Nicotine dependence, cigarettes, uncomplicated; Z79.4 Long term (current) use of insulin; Z79.899 Other long term (current) drug therapy
CPT/HCPCS: 76705

== ENCOUNTER 2018-06-01 08:50 | Outpatient (CLI) | payer OTHER ==
--- NOTE | 2018-06-01 11:17 | CT ---
CT ABDOMEN WITH IV CONTRAST: Date: 06-01-18 Provided Clinical History: Umbilical discharge. FINDINGS: Visualized lung bases are free of significant opacity. Liver, spleen, pancreas, kidneys and adrenal glands demonstrate an unremarkable CT appearance. Change s of prior cholecystectomy are seen. There is focal cutaneous thickening and stranding of the subcutaneous adipose layer and subjacent sup erficial peritoneal fat about the umbilicus. There is no evidence for focal fluid collection. There i s no abnormality of the adjacent bowel apparent. There is no bowel dilatation, additional fat stranding, free fluid or free air apparent. No regional lymph node enlargement. Vascular calcifications are seen. The osseous structures demonstrate no concerning osteoblastic or osteolytic lesions. IMPRESSION: Periumbilical cellulitis without evidence for abscess or abnormality of the adjacent bowel. POS: [facility]
[2018-06-01] MEDS ORDERED: ISOVUE-370 76%-LOCM 1 ML ONE (11:23)
== END 2018-06-01 08:51 | disposition home or self-care (01) ==
LOC: BICCT 08:50
PROVIDERS: ATTEND Surgery
DX: R19.8 Other specified symptoms and signs involving the digestive system and abdomen (principal); L03.316 Cellulitis of umbilicus
CPT/HCPCS: 74160

== ENCOUNTER 2018-06-06 07:33 | Outpatient (CLI) | payer OTHER ==
[2018-06-06 14:36] LABS: #Basophils 0.1 thou/uL (0.0-0.2); #Eosinphils 0.2 thou/uL (0.0-0.7); #Lymphocytes 3.4 thou/uL (1.20-3.40); #Monocytes 0.6 thou/uL (0.11-0.59); #Neutrophils 6.2 thou/uL (1.40-6.50); %Basophils 0.9 % (0.0-1.0); %Eosinophils 2.2 % (0.0-10.0); %Lymphocytes 32.1 % (21.0-51.0); %Neutrophils 58.7 % (42.0-75.0); Hemoglobin 15.5 g/dL (12.0-16.0); Mean Corpuscular HGB CONC 34.5 g/dL (32.0-36.0); Mean Corpuscular Hemoglobin 32.1 pg (27.0-31.0); Mean Corpuscular Volume 93.1 fL (78.0-98.0); Mean Platelet Volume 7.8 fL (7.4-10.4); Platelet Count 263 thou/uL (130-400); RBC Distribution Width 12.9 % (11.5-14.5); Red Blood Cell (RBC) Count 4.84 mill/uL (4.20-5.40); White Blood Cell (WBC) Count 10.5 thou/uL (4.8-10.8)
[2018-06-06 14:43] LABS: Anion Gap 14 mmol/L (10-20); BUN (Urea Nitrogen) 10 mg/dL (9.8-20.1); Calc. Creatinine Clearance 0 mL/min (70-130); Calcium 9.5 mg/dL (7.8-10.44); Carbon Dioxide 32 mmol/L (22-29); Chloride 95 mmol/L (98-107); Estimated GFR-MDRD 54; Glucose 99 mg/dL (70-105); Potassium 3.8 mmol/L (3.5-5.1); Sodium 137 mmol/L (136-145)
== END 2018-06-06 07:34 | disposition home or self-care (01) ==
LOC: LABBT 07:33
PROVIDERS: ATTEND Surgery
DX: Z01.812 Encounter for preprocedural laboratory examination (principal); T14.8XXA Other injury of unspecified body region, initial encounter
CPT/HCPCS: 80048; 85025

== ENCOUNTER 2018-06-08 07:28 | Day surgery (SDC) | payer OTHER ==
[2018-06-06 13:24] VITALS: BMI 40.8
[2018-06-08] MEDS ORDERED: Vancomycin HCl 1.5 GM in Sodium Chloride 0.9% 250 ML 300 ML IVPB SCH (09:00)
[2018-06-08] MEDS ORDERED: Bupivacaine/Epinephrine 0.25% 30 ML VIAL ONE (09:28)
[2018-06-08] MEDS ORDERED: Fentanyl 100 MCG/2 ML VIAL ONE (09:38)
[2018-06-08] MEDS ORDERED: Rocuronium Bromide 10 MG/ML (10ML VIAL) ONE (16:09)
[2018-06-08] MEDS ORDERED: Glycopyrrolate 0.2 MG/ML 5 ML SYRINGE ONE (16:09)
[2018-06-08] MEDS ORDERED: Lidocaine 1% PF 5 ML VIAL ONE (16:09)
[2018-06-08] MEDS ORDERED: Ondansetron PF 4 MG/2 ML Vial ONE (16:09)
[2018-06-08] MEDS ORDERED: PROPOFOL 200 MG/20 ML VIAL ONE (16:09)
[2018-06-08] MEDS ORDERED: Dexamethasone 20 MG/5 ML VIAL ONE (16:09)
--- NOTE | 2018-06-08 18:16 | PDOC.OP ---
Operative Note - Operative Note Operative Note: PROCEDURE: Washout and debridement at the umbilical wound with partial resection of the umbilical mesh DATE OF PROCEDURE: 06/08/2018 SURGEON: Celia Calvo M.D. 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 She developed chronic drainage from her skin incision which did not heal with antibiotics and conservative wound management. Recommendation was made to proceed to the operating room for washout and debridement and possible mesh explantation. PROCEDURE IN DETAIL: After informed consent was obtained and appropriate preoperative antibiotics administered the patient was taken to the operating room and placed into the supine position and general anesthesia administered. She was prepped and draped in standard sterile fashion and local anesthesia infused the skin and subcutaneous tissues at the level of the umbilicus. The scar was excised and dissection carried down to the chronic cavity which was examined. Cultures were sent. The patient was found to have exposed mesh and suture in the base of the wound which was resected. The underlay mesh more peripherally was well incorporated but all exposed mesh was removed. The wound was copiously irrigated and the fascia reapproximated with 0 Vicryl sutures. Hemostasis was verified and a wound VAC was placed. The patient tolerated the procedure well and was extubated and taken to recovery in good condition. Estimated blood loss was minimal. There were no complications. Specimen is wound culture.
== END 2018-06-08 15:03 | disposition home or self-care (01) ==
LOC: SDC 07:28
PROVIDERS: ATTEND Surgery
PROC: 0WPF0JZ Removal of Synthetic Substitute from Abdominal Wall, Open Approach (ICD-10-PCS; principal; 2018-06-08)
DX: T83.728A Exposure of other implanted mesh into organ or tissue, initial encounter (principal); E11.9 Type 2 diabetes mellitus without complications; J44.9 Chronic obstructive pulmonary disease, unspecified; E03.9 Hypothyroidism, unspecified; E78.00 Pure hypercholesterolemia, unspecified; F32.9 Major depressive disorder, single episode, unspecified; G47.30 Sleep apnea, unspecified; G25.81 Restless legs syndrome; M19.90 Unspecified osteoarthritis, unspecified site; D64.9 Anemia, unspecified; Z98.51 Tubal ligation status; Z90.89 Acquired absence of other organs; Z90.710 Acquired absence of both cervix and uterus; Z90.49 Acquired absence of other specified parts of digestive tract; Z88.5 Allergy status to narcotic agent; Z88.1 Allergy status to other antibiotic agents; Z88.6 Allergy status to analgesic agent; Z91.018 Allergy to other foods; Z79.4 Long term (current) use of insulin; Z79.82 Long term (current) use of aspirin; Z79.899 Other long term (current) drug therapy; Z98.890 Other specified postprocedural states
CPT/HCPCS: 36416; 87070; 87077; 87186; 87205; J1100; J2001; J2405; J2704; J3010; J3370; J7050

== ENCOUNTER 2018-06-13 14:56 | Outpatient (CLI) | payer OTHER ==
[2018-06-13] MEDS ORDERED: Lidocaine 4% Topical Sol 50 ML BOT ONE ×2 (15:45→20:04)
[2018-06-13] MEDS ORDERED: Sodium Chloride 0.9% 15 ML NEB ONE ×2 (15:45→20:04)
== END 2018-06-13 14:57 | disposition home or self-care (01) ==
LOC: WCC 14:56
PROVIDERS: ATTEND Family Medicine
DX: T81.89XD Other complications of procedures, not elsewhere classified, subsequent encounter (principal)
CPT/HCPCS: 97605; A4218

== ENCOUNTER 2018-06-15 14:34 | Outpatient (CLI) | payer OTHER ==
[~2018-06-15 14:34] MED LIST: Sodium Chloride 0.9% 15 ML NEB ONE
== END 2018-06-15 14:35 | disposition home or self-care (01) ==
LOC: WCC 14:34
PROVIDERS: ATTEND Family Medicine
DX: T81.89XD Other complications of procedures, not elsewhere classified, subsequent encounter (principal)
CPT/HCPCS: 97605; A4218

== ENCOUNTER 2018-06-18 14:47 | Outpatient (CLI) | payer OTHER ==
[2018-06-18] MEDS ORDERED: Sodium Chloride 0.9% 15 ML NEB ONE (15:00)
== END 2018-06-18 14:48 | disposition home or self-care (01) ==
LOC: WCC 14:47
PROVIDERS: ATTEND Family Medicine
DX: T81.43XD Infection following a procedure, organ and space surgical site, subsequent encounter (principal)
CPT/HCPCS: A4218

== ENCOUNTER 2018-06-20 15:22 | Outpatient (CLI) | payer OTHER | END 2018-06-20 15:23 | disposition home or self-care (01) | LOC: WCC 15:22 | PROVIDERS: ATTEND Family Medicine | DX: T81.89XD Other complications of procedures, not elsewhere classified, subsequent encounter (principal) | CPT/HCPCS: 36416; 97605; A4218 ==

== ENCOUNTER 2018-06-22 14:04 | Outpatient (CLI) | payer OTHER ==
[2018-06-22] MEDS ORDERED: Sodium Chloride 0.9% 15 ML NEB ONE (15:00)
== END 2018-06-22 14:05 | disposition home or self-care (01) ==
LOC: WCC 14:04
PROVIDERS: ATTEND Family Medicine
DX: T81.89XD Other complications of procedures, not elsewhere classified, subsequent encounter (principal)
CPT/HCPCS: 97605; A4218

== ENCOUNTER 2018-06-25 14:30 | Outpatient (CLI) | payer OTHER ==
[2018-06-25] MEDS ORDERED: Sodium Chloride 0.9% 15 ML NEB ONE (15:00)
== END 2018-06-25 14:31 | disposition home or self-care (01) ==
LOC: WCC 14:30
PROVIDERS: ATTEND Family Medicine
DX: T81.89XD Other complications of procedures, not elsewhere classified, subsequent encounter (principal)
CPT/HCPCS: 97605; A4218

== ENCOUNTER 2018-06-28 15:45 | Outpatient (CLI) | payer OTHER | END 2018-06-28 15:46 | disposition home or self-care (01) | LOC: WCC 15:45 | PROVIDERS: ATTEND Family Medicine | DX: S31.109D Unspecified open wound of abdominal wall, unspecified quadrant without penetration into peritoneal cavity, subsequent encounter (principal) | CPT/HCPCS: 97605; A4218 ==

== ENCOUNTER 2018-07-02 08:21 | Outpatient (CLI) | payer OTHER ==
--- NOTE | 2018-07-02 09:37 | HP ---
HISTORY OF PRESENT ILLNESS: Ms. Seth Gaines is a very pleasant 58-year-old who presents to the Wound Center for evaluation of a wound of the anterior abdominal wall subsequent to washout and debridement of an umbilical wound with partial resection of umbilical mesh. Negative pressure therapy was initiated intraoperatively and upon discharge from [facility], the patient was referred to the Wound Center for assistance with dressing changes of the wound VAC. Previously, the patient had undergone umbilical hernia repair with mesh also by Dr. Calvo. PAST MEDICAL HISTORY: 1. Diabetes mellitus. 2. Coronary artery disease. 3. Fibromyalgia. 4. Osteoarthritis. 5. Hypothyroidism. 6. Obstructive sleep apnea. 7. COPD. 8. Congestive heart failure, diastolic. 9. Chronic pancreatitis. 10. Asthma. PAST SURGICAL HISTORY: 1. Bilateral tubal ligation. 2. Cholecystectomy. 3. Hysterectomy/bladder suspension. 4. Appendectomy. 5. Tonsillectomy and adenoidectomy. 6. Redo bladder suspension. 7. Umbilical hernia repair with mesh. 8. Washout and debridement of umbilical wound with partial resection of umbilical mesh. 9. Hand surgery. 10. Elbow surgery. MEDICATIONS: 1. Bactrim DS. 2. Tylenol. 3. Zofran. 4. Protonix. 5. Cozaar. 6. Amitriptyline. 7. Metformin. 8. NovoLog. 9. Lidoderm patch. 10. Levemir. 11. Cymbalta. 12. Atrovent. 13. Atorvastatin. 14. Ibuprofen. 15. ProAir. 16. Tiotropium. 17. Lasix. 18. Clonazepam. 19. Gabapentin. 20. Aspirin 81 mg. 21. Levothyroxine. 22. Bupropion. 23. Vitamin D. ALLERGIES: MORPHINE, CODEINE, TETRACYCLINE, LATEX. SOCIAL HISTORY: Significant for tobacco use of 1 pack of cigarettes per day for 50 years. The patient admits to the heavy consumption of alcohol in the past. She states that she stopped consuming alcohol in 1988 or 1989. FAMILY HISTORY: Significant for diabetes mellitus. The patient states that her mother, grandmother, sister, and daughter were all diagnosed with diabetes mellitus. Family history is also significant for coronary artery disease. The patient states that her daughter, 2 sisters, mother, grandmother, and father were all diagnosed with coronary artery disease. PHYSICAL EXAMINATION: VITAL SIGNS: Temperature 97.7, pulse 64, blood pressure 125/65. Accu-Chek 82. GENERAL: A 58-year-old female sitting on chair in examination room, in no acute distress. HEENT: Normocephalic and atraumatic. NECK: No nuchal rigidity. CHEST: Clear to auscultation. CV: Regular rate and rhythm. ABDOMEN: Soft. The wound of the abdomen is present which measures approximately 0.7 x 0.9 cm. Granulation tissue is present within the wound margins. No purulent drainage is associated with the wound. No erythema of the skin surrounding the wound is present. No maceration of the skin of the periwound is noted. EXTREMITIES: No clubbing or cyanosis. NEURO: Grossly nonfocal. ASSESSMENT AND PLAN: 1. Abdominal wound as described above. Negative pressure therapy will be continued with dressing changes of the wound VAC here in the Wound Center. Promogran will be applied to the wound bed at the time of dressing changes. The patient is to continue Bactrim DS as per Dr. Calvo. I will see Ms. Gaines again in 2 weeks. 2. Diabetes mellitus. The patient's Accu-Chek in clinic today is 82. The patient has been told that for optimal wound healing her blood glucoses should remain below 150. 3. Coronary artery disease. 4. Fibromyalgia. 5. Osteoarthritis. 6. Hypothyroidism. 7. Obstructive sleep apnea. 8. Chronic obstructive pulmonary disease. 9. Congestive heart failure, diastolic. 10. Chronic pancreatitis. 11. Asthma. Job ID: [id number]
[2018-07-02] MEDS ORDERED: Sodium Chloride 0.9% 15 ML NEB ONE (11:11)
== END 2018-07-02 08:22 | disposition home or self-care (01) ==
LOC: WCC 08:21
PROVIDERS: ATTEND Family Medicine
DX: T81.43XD Infection following a procedure, organ and space surgical site, subsequent encounter (principal); L02.211 Cutaneous abscess of abdominal wall
CPT/HCPCS: A4218

== ENCOUNTER 2018-07-05 13:24 | Outpatient (CLI) | payer OTHER | END 2018-07-05 13:25 | disposition home or self-care (01) | LOC: WCC 13:24 | PROVIDERS: ATTEND Family Medicine | DX: T81.89XD Other complications of procedures, not elsewhere classified, subsequent encounter (principal) | CPT/HCPCS: 36415; 85025; 86140; 97605 ==

== ENCOUNTER 2018-07-09 11:41 | Outpatient (CLI) | payer OTHER | END 2018-07-09 11:42 | disposition home or self-care (01) | LOC: WCC 11:41 | PROVIDERS: ATTEND Family Medicine | DX: T81.89XD Other complications of procedures, not elsewhere classified, subsequent encounter (principal) | CPT/HCPCS: 97605 ==

== ENCOUNTER 2018-07-12 13:01 | Outpatient (CLI) | payer OTHER ==
--- NOTE | 2018-07-12 14:07 | PRG ---
DATE OF SERVICE: 07/12/2018 HISTORY: Ms. Seth Gaines is a very pleasant 58-year-old, who presents to the Wound Center for evaluation of a wound of the anterior abdominal wall, subsequent washout and debridement of an umbilical wound with partial resection of umbilical mesh. Negative pressure therapy was initiated intraoperatively and upon discharge from [facility], the patient was referred to the Wound Center for assistance with dressing changes of the wound VAC. The patient previously had undergone umbilical hernia repair with mesh also by Dr. Calvo. PHYSICAL EXAMINATION: VITAL SIGNS: Temperature 97.5, pulse 55, and blood pressure 114/55. Accu-Chek 123. ABDOMEN: A wound of the abdomen is present which measures approximately 0.4 x 0.4 cm. Granulation tissue is present within the wound margins. No purulent drainage is associated with the wound. No erythema of the skin surrounding the wound is present. No maceration of the skin of the periwound is noted. The depth of the wound is approximately 1.3 cm. ASSESSMENT AND PLAN: 1. Abdominal wound as described above. Negative pressure therapy will be continued with dressing changes of the wound VAC here in the Wound Center. The patient will be seen by Dr. Calvo next week. I will see Ms. Gaines again in 2 weeks. 2. Diabetes mellitus. The patient's Accu-Chek in clinic today is 123. The patient has been reminded that for optimal wound healing, her blood glucoses should remain below 150. 3. Coronary artery disease. 4. Fibromyalgia. 5. Osteoarthritis. 6. Hypothyroidism. 7. Obstructive sleep apnea. 8. Chronic obstructive pulmonary disease. 9. Congestive heart failure, diastolic. 10. Chronic pancreatitis. 11. Asthma. Job ID: [id number]
[2018-07-12] MEDS ORDERED: Sodium Chloride 0.9% 15 ML NEB ONE (18:00)
== END 2018-07-12 13:02 | disposition home or self-care (01) ==
LOC: WCC 13:01
PROVIDERS: ATTEND Family Medicine
DX: T81.89XD Other complications of procedures, not elsewhere classified, subsequent encounter (principal); E11.9 Type 2 diabetes mellitus without complications; I25.10 Atherosclerotic heart disease of native coronary artery without angina pectoris; M79.7 Fibromyalgia; M19.90 Unspecified osteoarthritis, unspecified site; E03.9 Hypothyroidism, unspecified; G47.33 Obstructive sleep apnea (adult) (pediatric); J44.9 Chronic obstructive pulmonary disease, unspecified; I50.30 Unspecified diastolic (congestive) heart failure; K86.1 Other chronic pancreatitis
CPT/HCPCS: A4218

== ENCOUNTER 2018-07-16 11:53 | Outpatient (CLI) | payer OTHER | END 2018-07-16 11:54 | disposition home or self-care (01) | LOC: WCC 11:53 | PROVIDERS: ATTEND Family Medicine | DX: T81.89XD Other complications of procedures, not elsewhere classified, subsequent encounter (principal) | CPT/HCPCS: 97605; A4218 ==

== ENCOUNTER 2018-07-20 16:07 | Outpatient (CLI) | payer OTHER | END 2018-07-20 16:08 | disposition home or self-care (01) | LOC: WCC 16:07 | PROVIDERS: ATTEND Family Medicine | DX: T81.89XD Other complications of procedures, not elsewhere classified, subsequent encounter (principal) | CPT/HCPCS: 97605; A4218 ==

== ENCOUNTER 2019-04-12 17:18 | Inpatient (IN) | payer OTHER ==
--- NOTE | 2019-04-12 18:05 | RAD ---
XR Chest 1 View Portable History: Dyspnea. Sepsis alert Comparison: Radiograph 07/22/2018 Findings: Heart size is enlarged. Pulmonary arteries are dilated. No pneumothorax. Mild edema. Small effusions. Impression: Findings of decompensated congestive heart failure.
[2019-04-12] MEDS ORDERED: cefTRIAXone\\ROCEPHIN 2 GM VIAL ONE (18:06)
[2019-04-12] MEDS ORDERED: Azithromycin 500 MG VIAL ONE (18:06)
[2019-04-12] MEDS ORDERED: Acetaminophen 500 MG TAB ONE (18:06)
[2019-04-12 18:13] LABS: #Lymphocytes 1.4 thou/uL (1.20-3.40); #Monocytes 0.7 thou/uL (0.11-0.59); #Neutrophils 9.6 thou/uL (1.40-6.50); %Basophils 0.3 % (0.0-1.0); %Eosinophils 0.1 % (0.0-10.0); %Lymphocytes 11.9 % (21.0-51.0); %Neutrophils 81.6 % (42.0-75.0); Hemoglobin 13.4 g/dL (12.0-16.0); Mean Corpuscular Hemoglobin 30.3 pg (27.0-31.0); Mean Corpuscular Volume 91.9 fL (78.0-98.0); Mean Platelet Volume 7.1 fL (7.4-10.4); Platelet Count 213 thou/uL (130-400); RBC Distribution Width 14.2 % (11.5-14.5); Red Blood Cell (RBC) Count 4.43 mill/uL (4.20-5.40); White Blood Cell (WBC) Count 11.7 thou/uL (4.8-10.8)
[2019-04-12 18:42] LABS: ALT (SGPT) 44 U/L (8-55); AST (SGOT) 43 U/L (5-34); Alkaline Phosphatase 89 U/L (40-110); Anion Gap 13 mmol/L (10-20); BUN (Urea Nitrogen) 12 mg/dL (9.8-20.1); Bilirubin, Total 0.5 mg/dL (0.2-1.2); Calc. Creatinine Clearance 0 mL/min (70-130); Calcium 8.8 mg/dL (7.8-10.44); Carbon Dioxide 31 mmol/L (22-29); Chloride 93 mmol/L (98-107); Estimated GFR-MDRD 44; Globulin 4.1 g/dL (2.4-3.5); Glucose 104 mg/dL (70-105); Potassium 3.5 mmol/L (3.5-5.1); Protein, Total 8.1 g/dL (6.0-8.3); Sodium 133 mmol/L (136-145)
--- NOTE | 2019-04-12 18:52 | PDOC.FPRHP ---
- History of Present Illness Chief Complaint: hypotensive History of Present Illness: Ms. Gaines is a 59yoF who presented to the ED today after being seen in the [facility] clinic this afternoon. She has had increasing shortness of breath and general malaise. Her symptoms started yesterday and worsened today. She has been coughing up yellow phlegm since yesterday. She has noted increasing work of breathing and increasing weakness. She is currently on BiPap and still feeling very short of breath. She is chronically on 4L of O2 via NC at home. Desires intubation if her respiratory status continues to decline. Usually wears bipap at night. - Allergies/Adverse Reactions Allergies Allergy/AdvReac Type Severity Reaction Status Date / Time codeine Allergy severe Verified 06/06/18 13:25 confusion, violent morphine Allergy vomiting Verified 06/06/18 13:25 Poultry Allergy flushing, Verified 01/24/18 15:19 burning sensation tetracycline Allergy Nausea Verified 06/06/18 13:25 aspirin AdvReac Nausea Verified 06/06/18 13:25 - Home Medications Medication Instructions Recorded Confirmed Type Albuterol Sulfate [Proair HFA] 2 puff INH QID PRN 05/20/15 04/12/19 History Amitriptyline HCl 25 mg PO HS 05/20/15 04/12/19 History Aspirin [Aspirin EC] 81 mg PO QAM 05/20/15 04/12/19 History Atorvastatin Calcium 40 mg PO HS 05/20/15 04/12/19 History DULoxetine [Cymbalta] 60 mg PO QAM 05/20/15 04/12/19 History Furosemide [Lasix] 40 mg PO QAM 05/20/15 04/12/19 History Gabapentin 900 mg PO BID 05/20/15 04/12/19 History Ibuprofen 600 mg PO TID PRN 05/20/15 04/12/19 History Insulin Aspart [NovoLOG FlexPen] 6 unit SC TID-WM 05/20/15 04/12/19 History Isosorbide Mononitrate [Isosorbide 30 mg PO QAM 05/20/15 04/12/19 History Mononitrate ER] Levemir Flexpen [Levemir FlexPen] 0 unit SC ASDIR 05/20/15 04/12/19 History Levothyroxine Sodium 175 mcg PO QAM 05/20/15 04/12/19 History Lidocaine 5% Patch [Lidoderm 5% 1 patch TOP PRN PRN 05/20/15 04/12/19 History Patch] Losartan [Cozaar] 25 mg PO DAILY 05/20/15 04/12/19 History Nitroglycerin 0.4 mg SL Q5MIN PRN 05/20/15 04/12/19 History Tiotropium [Spiriva Handihaler] 1 puff INH QAM 05/20/15 04/12/19 History clonazePAM 1 mg PO BID 05/20/15 04/12/19 History metFORMIN HCl [metFORMIN HCl ER] 1,200 mg PO QPM 05/20/15 04/12/19 History Beclomethasone Dipropionate [Qvar 2 puff INH BID 12/28/17 04/12/19 History Redihaler] Acetaminophen [Tylenol Regular 650 mg PO Q4H PRN tab 12/30/17 04/12/19 Rx Strength] Ipratropium/Albuterol Sulfate 3 ml IN QID 04/12/19 04/12/19 History [DuoNeb] metFORMIN [Glucophage] 900 mg PO QAM 04/12/19 04/12/19 History - History PMHx: COPD - on Proair, Qvar, Duoneb DM II CHF Hypothyroid H/o RI CAD, stents x2, 3 catheterizations PSHx: Hernia Appendectomy Hysterectomy w/ BTL Cholecystectomy Tonsillectomy Bladder surgery FHx: Father: , CAD Mother: Sister: , breast cancer Sister: , small cell lung cancer, breast cancer Social: Current tobacco user 1ppd, longstanding history Denies alcohol, and illicit drug use. - Review of Systems General: reports: fever/chills, weight/appetite/sleep changes, fatigue Eyes: denies: eye pain, vision changes ENT: denies: nasal congestion, rhinorrhea Respiratory: reports: cough, congestion, shortness of breath, exercise intolerance Cardiovascular: reports: edema, paroxysmal nocturnal dyspnea, orthopnea. denies : chest pain, palpitation Gastrointestinal: reports: diarrhea. denies: nausea, vomiting, constipation, abdominal pain Genitourinary: denies: incontinence, dysuria, polyuria Skin: denies: rashes, lesions Musculoskeletal: denies: pain, tenderness Neurological: reports: weakness. denies: numbness, syncope - Vital signs 04/13/19 04/13/19 02:00 02:46 Pulse Rate 113 H Respiratory 25 H Rate O2 Sat by Pulse 98 Oximetry Oxygen Delivery Bi-PAP Method NIBP 107/60 NIBP BP-Mean 75 - Physical Exam Constitutional: awake, alert and oriented, well developed HEENT: normocephalic and atraumatic, PERRLA, EOMI, grossly normal vision, grossly normal hearing, MMM Neck: supple, trachea midline Heart: RRR, normal S1/S2 -Heart: systolic murmur -Lungs: Tachypneic, on BiPap, Tight breath sounds with poor air movement and diffuse wheezing. Abdomen: soft, bowel sounds present -Abdomen: protuberant abdomen Musculoskeletal: normal structure, normal tone Neurological: no focal deficit, CN II-XII intact Skin: no rash/lesions, good turgor, capillary refill <2 seconds Heme/Lymphatic: no unusual bruising or bleeding, no purpura, no petechia Psychiatric: normal mood and affect, good judgment and insight, intact recent and remote memory FMR H&P: Results - Labs Result Diagrams: 04/13/19 04:14 04/13/19 04:14 Lab results: WBC 11.7 thou/uL (4.8-10.8) H 04/12/19 18:06 Hgb 13.4 g/dL (12.0-16.0) 04/12/19 18:06 Hct 40.7 % (36.0-47.0) 04/12/19 18:06 MCV 91.9 fL (78.0-98.0) 04/12/19 18:06 Plt Count 213 thou/uL (130-400) 04/12/19 18:06 Neutrophils % 81.6 % (42.0-75.0) H 04/12/19 18:06 Sodium 133 mmol/L (136-145) L 04/12/19 18:06 Potassium 3.5 mmol/L (3.5-5.1) 04/12/19 18:06 Chloride 93 mmol/L (98-107) L 04/12/19 18:06 Carbon Dioxide 31 mmol/L (22-29) H 04/12/19 18:06 BUN 12 mg/dL (9.8-20.1) 04/12/19 18:06 Creatinine 1.24 mg/dL (0.6-1.1) H 04/12/19 18:06 Glucose 104 mg/dL (70-105) 04/12/19 18:06 Lactic Acid 4.1 mmol/L (0.5-2.2) H* 04/12/19 18:06 Calcium 8.8 mg/dL (7.8-10.44) 04/12/19 18:06 Total Bilirubin 0.5 mg/dL (0.2-1.2) 04/12/19 18:06 AST 43 U/L (5-34) H 04/12/19 18:06 ALT 44 U/L (8-55) 04/12/19 18:06 Alkaline Phosphatase 89 U/L (40-110) 04/12/19 18:06 B-Natriuretic Peptide 55.1 pg/mL (0-100) 04/12/19 18:06 Serum Total Protein 8.1 g/dL (6.0-8.3) 04/12/19 18:06 Albumin 4.0 g/dL (3.5-5.0) 04/12/19 18:06 - Radiology Interpretation Chest x-ray Status: report reviewed by me (Findings: Heart size is enlarged. Pulmonary arteries are dilated. No pneumothorax. Mild edema. Small effusions. Impression: Findings of decompensated congestive heart failure.) FMR H&P: A/P - Problem List (1) Sepsis due to pneumonia Current Visit: Yes Status: Acute Code(s): J18.9 - PNEUMONIA, UNSPECIFIED ORGANISM; A41.9 - SEPSIS, UNSPECIFIED ORGANISM (2) Influenza A Current Visit: Yes Status: Acute Code(s): J10.1 - FLU DUE TO OTH IDENT INFLUENZA VIRUS W OTH RESP MANIFEST (3) PA (acute kidney injury) Current Visit: No Status: Acute Code(s): N17.9 - ACUTE KIDNEY FAILURE, UNSPECIFIED (4) COPD (chronic obstructive pulmonary disease) Current Visit: No Status: Acute (5) DM2 (diabetes mellitus, type 2) Current Visit: No Status: Acute Qualifiers: Diabetes mellitus complication status: with unspecified complications (6) HLD (hyperlipidemia) Current Visit: No Status: Acute Code(s): E78.5 - HYPERLIPIDEMIA, UNSPECIFIED - Plan Sepsis Secondary to CAP - Empiric Antibiotics - Rocephin and Azithromycin (04/12/2019) - S/p Bolus in ER. Will add fluids for a total of a 30mL/kg bolus. - Lactic acid 2.9, will trend. - O2 prn, with BiPap - Urine legionella, strep pneumo and influenza testing ordered. - Procal negative Acute Hypoxic Respiratory Failure - Baseline 4L NC at home. - Currently requiring BIPAP 40% FIO2 and saturating 100%. PA - Baseline <1 - IVF bolus - Will continue IVF - Recheck BMP in the AM COPD - on Proair, Qvar, Duoneb at home. - will add on DuoNeb scheduled and albuterol nebs prn DM II - continue home medications - hyperglycemia protocol, mod SSI, accuchecks ACHS CHF - will closely monitor respiratory status. - BNP WNL, do not suspect CHF exacerbation Hypothyroid - will continue home medications H/o RI CAD, stents x2, 3 catheterizations - aware FMR H&P: Upper Level - Pertinent history 59 yo female with two days of malaise and fatigue. Seen by PCP today and advised to present to ED due to weakness and hypotension. Since in ED has become febrile, tachycardic and required BIPAP therapy. Please see operations intern note above for further information. - Plan Date/Time: 04/12/191850 I, Devonte Morton MD, have evaluated this patient and agree with findings/ plan as outlined by operations intern resident. Pertinent changes/additions are listed here. 1. Sepsis Secondary to CAP - Empiric Antibiotics - IVF - O2 supplementation as needed - Urine legionella and strep ordered at this time - Will rule out Influenza at this time as well. 2. Acute Hypoxic Respiratory Failure - Baseline 4L NC at home - Currently requiring BIPAP 40% FIO2 3. PA - Baseline 1.0 - IVF bolus - Will continue IVF Chronic medical conditions reviewed. Will restart medications as appropriate and make other changes as needed. PCP: DORI Munoz CODE STATUS: FULL CODE Disposition: Stable, will admit to [facility]. Patient was seen and evaluated with Dr. Norm Cai who is in agreement with plan. Addendum - Attending - Attending Attestation Date/Time: 04/12/192029 I personally evaluated the patient and discussed the management with Dr. Hernandez/ Praveen. I agree with the History, Examination, Assessment and Plan documented above with any addition or exceptions noted below. patient is 59-year-old female with history of COPD on 4 L O2 by nasal cannula at home who presents to the ER with hypotension. Patient was originally seen in our clinic this afternoon and was actually evaluated by me during that time. Patient had noted one day history of increasing weakness, productive cough, chills. She was noted in the clinic to be hypotensive to 80s over 50s. She was sent to the ED for more urgent evaluation. Upon arrival to the ED, she had decompensation in her status and was placed on BiPAP therapy due to hypoxia. She was also hypotensive so IV fluid bolus was started. patient denies any objective fevers but does admit to chills starting yesterday. She also admits productive cough and increasing shortness of breath since yesterday. She admits sick contacts with similar symptoms. On exam patient is dry appearing with increased respiratory effort. Her lung exam is pertinent mostly for decreased breath sounds bilaterally. No focal consolidation noted. She has a protuberant abdomen. Her extremities revealed no clubbing cyanosis or edema. she is noted to be tachycardic to the low 100s and hypotensive to 90s over 60s. Shes currently setting high 90% on 4 L O2 with BiPAP therapy as well. Chest x-ray showed findings concerning for decompensated CHF. Patient has a mild elevation in her white count with left shift, PA, elevated lactic acid. Patient to be admitted to the IMCU for sepsis suspected secondary to community acquired pneumonia versus COPD exacerbation. Patient will be adequately fluid resuscitated as she is dry on exam, will be placed on broad-spectrum anabiotics. Cultures will be obtained. Procalcitonin will be obtained and trended. Strict I/O as the patient does have a history of suspected diastolic heart failure, though her BNP is extremely low and there is no evidence of peripheral edema on exam to suggest volume overload at this time. nebulizer treatments as needed for shortness of breath. Further management pending clinical course.
[2019-04-12 18:54] LABS: Bilirubin Negative (Negative); Blood, Urine Negative (Negative); Clarity Clear (Clear); Glucose, Urine (Dipstick) Normal (Negative); Leukocyte Negative Leu/uL (Negative); Nitrite Negative (Negative); Protein, Urine (Dipstick) 20 mg/dL (Neg-Trace); Urobilinogen Normal mg/dL (Less than 2)
[2019-04-12] MEDS ORDERED: Acetaminophen 325 MG TAB PO PRN (19:14)
[2019-04-12] MEDS ORDERED: Ondansetron PF 4 MG/2 ML Vial IVP PRN (19:14)
[2019-04-12] MEDS ORDERED: Dextrose 50% Abboject 50 ML SYRINGE SLOW IVP PRN (19:14)
[2019-04-12] MEDS ORDERED: Dextrose 5% in Water 1,000 ML IV PRN (19:14)
[2019-04-12 21:21] LABS: Lactic Acid 2.2 mmol/L (0.5-2.2)
[2019-04-12 22:47] VITALS: BMI 41.6
[2019-04-12] MEDS: Lactated Ringer's 1,000 ML IV SCH (22:53)
[2019-04-12 23:17] LABS: Lactic Acid 2.9 mmol/L (0.5-2.2)
[2019-04-12 23:52] LABS: Legionella Urinary Ag Negative (Negative); Strep pneumo Urine Ag NEGATIVE (NEGATIVE)
[2019-04-13] MEDS ORDERED: ALPRAZolam 0.5 MG TAB PO PRN ×2 (00:55→12:52)
[2019-04-13] MEDS ORDERED: Albuterol Sulfate 2.5 mg/3 ml Neb NEB PRN (00:55)
[2019-04-13] MEDS ORDERED: Albuterol Sulfate 2.5 mg/3 ml Neb ONE (01:02)
--- NOTE | 2019-04-13 01:16 | PDOC.BPN ---
- Brief Progress Note Reevaluated patient at 0100: Patient is complaining of difficulty breathing, she feels that she cannot catch her breath. She is 100% on 40FiO2 CPAP. She feels that part of her shortness of breath is related to anxiety. She usually takes an anxiety medication at night but does not recall name or dose. She believes it is Xanax. On auscultation, she sounded tight with wheezing. Poor air movement. Will add on Albuterol 2.5mg nebs q 2hr prn. Will reevaluate after 1mg xanax and Albuterol neb.
[2019-04-13] MEDS ORDERED: Sodium Chloride 0.9% 1,000 ML IV SCH (02:00)
[2019-04-13 04:36] LABS: #Lymphocytes 0.7 thou/uL (1.20-3.40); #Monocytes 0.5 thou/uL (0.11-0.59); #Neutrophils 8.2 thou/uL (1.40-6.50); %Basophils 0.2 % (0.0-1.0); %Eosinophils 0.1 % (0.0-10.0); %Lymphocytes 7.2 % (21.0-51.0); %Monocytes 5.4 % (0.0-10.0); %Neutrophils 87.1 % (42.0-75.0); Hemoglobin 12.6 g/dL (12.0-16.0); Mean Corpuscular HGB CONC 32.6 g/dL (32.0-36.0); Mean Corpuscular Volume 91.8 fL (78.0-98.0); Mean Platelet Volume 7.2 fL (7.4-10.4); Platelet Count 189 thou/uL (130-400); RBC Distribution Width 14.3 % (11.5-14.5); Red Blood Cell (RBC) Count 4.19 mill/uL (4.20-5.40); White Blood Cell (WBC) Count 9.4 thou/uL (4.8-10.8)
[2019-04-13 04:53] LABS: Anion Gap 15 mmol/L (10-20); BUN (Urea Nitrogen) 10 mg/dL (9.8-20.1); Calc. Creatinine Clearance 96 mL/min (70-130); Calcium 8.1 mg/dL (7.8-10.44); Carbon Dioxide 25 mmol/L (22-29); Chloride 98 mmol/L (98-107); Estimated GFR-MDRD 54; Glucose 138 mg/dL (70-105); Potassium 3.9 mmol/L (3.5-5.1); Sodium 134 mmol/L (136-145)
[2019-04-13] MEDS ORDERED: Nitroglycerin 0.4 MG TAB (25 Tab Bottle) SL PRN (05:38)
[2019-04-13] MEDS ORDERED: Lactated Ringer's 1,000 ML IV SCH (05:45)
--- NOTE | 2019-04-13 05:58 | PDOC.FM ---
- Subjective Subjective: NAEO. Pt feels about the same breathing lerner if not mildly improved with BIPAP. Denies fevers. Still weak. - Objective MAR Reviewed: Yes Vital Signs & Weight: Vital Signs (12 hours) Temp Pulse Resp Pulse Ox 04/13/19 04:05 111 H 22 H 98 04/13/19 04:00 99.5 F 04/13/19 02:46 113 H 25 H 98 04/13/19 01:07 119 H 24 H 100 04/13/19 01:05 119 H 24 H 99 04/12/19 23:37 100.1 F H 04/12/19 22:50 25 H 04/12/19 22:45 98.6 F 04/12/19 22:30 102 H 24 H 99 Weight Weight 103.283 kg Most Recent Monitor Data Heart Rate from ECG 110 NIBP 129/75 NIBP BP-Mean 93 Respiration from ECG 42 SpO2 99 I&O: 04/11/19 04/12/19 04/13/19 06:59 06:59 06:59 Output Total 150 Balance -150 Result Diagrams: 04/13/19 04:14 04/13/19 04:14 Phys Exam - Physical Examination Constitutional: NAD HEENT: PERRLA bipap in place Neck: full ROM dec breath sounds, no wheezing Cardiovascular: RRR, no significant murmur Gastrointestinal: soft, non-tender distended Musculoskeletal: no edema Neurological: non-focal, moves all 4 limbs Psychiatric: normal affect, A&O x 3 Dx/Plan (1) Sepsis Code(s): A41.9 - SEPSIS, UNSPECIFIED ORGANISM Status: Acute (2) PA (acute kidney injury) Code(s): N17.9 - ACUTE KIDNEY FAILURE, UNSPECIFIED Status: Acute (3) COPD (chronic obstructive pulmonary disease) Status: Acute (4) DM2 (diabetes mellitus, type 2) Status: Acute Qualifiers: Diabetes mellitus complication status: with unspecified complications (5) Depression with anxiety Status: Acute (6) HLD (hyperlipidemia) Code(s): E78.5 - HYPERLIPIDEMIA, UNSPECIFIED Status: Acute (7) CKD (chronic kidney disease) Code(s): N18.9 - CHRONIC KIDNEY DISEASE, UNSPECIFIED Status: Chronic Qualifiers: Chronic kidney disease stage: stage 2 (mild) Qualified Code(s): N18.2 - Chronic kidney disease, stage 2 (mild) (8) Diastolic CHF Code(s): I50.30 - UNSPECIFIED DIASTOLIC (CONGESTIVE) HEART FAILURE Status: Chronic (9) HTN (hypertension) Code(s): I10 - ESSENTIAL (PRIMARY) HYPERTENSION Status: Chronic (10) RO on CPAP Code(s): G47.33 - OBSTRUCTIVE SLEEP APNEA (ADULT) (PEDIATRIC) Status: Chronic (11) Tobacco abuse Code(s): Z72.0 - TOBACCO USE Status: Chronic - Plan Plan: 59 yo F with COPD on 4L of O2 at baseline here for sepsis 2/2 influenza #. Sepsis 2/2 influenza -Flu A+, patient much improved- Continue tamiflu & supportive care. Still requiring Bipap, can consider weaning down. Less likely bacterial PNA in light of neg. procal and resolved WBC-will discuss discontinuing abx. #. Hypotension-improved after fluids at baseline. Likely from volume depletion 2 /2 sepsis #. PA- resolved after fluids #. COPD exacerbation- Likely triggered by flu. continue duonebs & COPD home meds with supportive care. steroids. #. Lactic acid- 2.9, will repeat Dispo: >2 midnights dvt ppx: lovenox IVF: LR 125, d/c when can come off of bipap Addendum - Attending - Attending Attestation Date/Time: 04/13/19 9163 I personally evaluated the patient and discussed the management with Dr. Gonzalez. I agree with the History, Examination, Assessment and Plan documented above with any addition or exceptions noted below. Patient here for initial concern for sepsis 2/2 CAP. She has testing Flu A positive, likely explaining her presentation. Her BP is improved. She reports not feeling better after Bipap, but I am hopeful she can be weaned off that and onto her normal 4L O2 by [place]. Start treatment for influenza. Suspect we can d/c antibiotics though she is at higher risk for secondary bacterial pneumonia. Pulm on board. If stable and off bipap, can transfer out of [facility] today. renal function improved with fluid hydration. Will repeat CXR. Continue COPD meds.
[2019-04-13] MEDS: Sodium Chloride 0.9% 1,000 ML IV SCH ×2 (06:38→14:16)
[2019-04-13] MEDS ORDERED: INSULIN ASPART 6 UNIT SC SCH (08:00)
[2019-04-13] MEDS ORDERED: predniSONE 20 MG TAB PO SCH (08:00)
--- NOTE | 2019-04-13 08:07 | RAD ---
Portable frontal chest radiograph: 04/13/2019 COMPARISON: 04/12/2019 HISTORY: Concern for viral pneumonia FINDINGS: Stable prominence of the cardiac silhouette. Diffuse increased linear interstitial density again noted. The lungs appear hyperinflated. No lobar consolidation or alveolar edema. There is hazy increased density again noted in the left base. Appearance of the chest is similar when compared to the 07/25/2015 exam IMPRESSION: Stable appearance of the chest as above.
[2019-04-13] MEDS ORDERED: metFORMIN 500 MG TAB PO SCH (09:00)
[2019-04-13] MEDS ORDERED: TIOTROPIUM INH SCH (09:00)
[2019-04-13] MEDS: HumaLOG 300 UNITS/3 ML VIAL SC SCH ×3 (09:31→16:55)
[2019-04-13] MEDS: Gabapentin 300 MG CAP PO SCH ×2 (09:31→21:56)
[2019-04-13] MEDS: Losartan 25 MG TAB PO SCH (09:31)
[2019-04-13] MEDS: Furosemide 40 MG TAB PO SCH (09:32)
[2019-04-13] MEDS: Enoxaparin Sodium 40 MG/0.4 ML SYRINGE SC SCH (09:32)
[2019-04-13] MEDS: Isosorbide Mononitrate (ER) 30 MG TAB PO SCH (09:32)
[2019-04-13] MEDS: Aspirin 81 mg Enteric Coated Tablet PO SCH (09:32)
[2019-04-13] MEDS: DULoxetine 60 MG CAP PO SCH (09:32)
[2019-04-13] MEDS: Oseltamivir 75 MG CAP PO SCH ×2 (09:32→21:56)
[2019-04-13] MEDS: Insulin Glargine 30 UNITS in Pre-Filled Syringe 1 EACH SC SCH ×2 (09:34→21:56)
[2019-04-13] MEDS ORDERED: Magnesium Sulfate 3 GM in Sodium Chloride 0.9% 100 ML IVPB SCH (13:00)
[2019-04-13 13:05] LABS: Lactic Acid 1.3 mmol/L (0.5-2.2)
[2019-04-13] MEDS: Acetaminophen 325 MG TAB PO PRN (14:13)
[2019-04-13] MEDS: clonazePAM 1 MG TAB PO SCH ×2 (14:15→21:56)
[2019-04-13] MEDS: Sodium Chloride 0.45% 1,000 ML IV SCH (14:17)
[2019-04-13] MEDS: methylPREDNISolone Sod Succ 40 MG VIAL IVP SCH (16:56)
[2019-04-13] MEDS: metFORMIN 500 MG TAB PO SCH (16:56)
[2019-04-13] MEDS ORDERED: cefTRIAXone\\ROCEPHIN 2 GM in Sodium Chloride 0.9% 100 ML IVPB SCH (18:00)
[2019-04-13] MEDS ORDERED: Vecuronium 10 MG VIAL ONE (18:41)
[2019-04-13] MEDS ORDERED: Azithromycin 500 MG in Sodium Chloride 0.9% 250 ML 250 ML IVPB SCH (20:00)
[2019-04-13] MEDS ORDERED: METFORMIN HCL PO SCH (21:00)
[2019-04-13] MEDS: Atorvastatin Calcium 40 MG TAB PO SCH (21:56)
[2019-04-13] MEDS: Amitriptyline HCl 25 MG TAB PO SCH (21:56)
--- NOTE | 2019-04-13 22:59 | CON ---
DATE OF CONSULTATION: HISTORY OF PRESENT ILLNESS: Seth Gaines is a pleasant 59-year-old female who apparently has severe COPD and sleep apnea. She has BiPAP at home. She presents with severe shortness of breath. She does not feel like taking her BiPAP off. She says she feels so much better with it on and she wants to keep it on. She denies having fever at home. She has been short of breath for a couple days prior to admission. She has had a cough with some purulent sputum as well. PAST MEDICAL HISTORY: Remarkable for; 1. COPD. 2. History of diabetes. 3. History of cardiomyopathy. 4. History of hypothyroidism. 5. History of coronary stenting and multiple catheterizations. 6. History of herniorrhaphy, appendectomy, hysterectomy, tubal ligation, cholecystectomy, and tonsillectomy as well as a bladder suspension. SOCIAL HISTORY: She is a pack-a-day smoker. She does not drink. FAMILY HISTORY: Positive for vascular disease and cancer. REVIEW OF SYSTEMS: Otherwise negative. PHYSICAL EXAMINATION: VITAL SIGNS: Heart rate in the 80s, respiratory rates in the 20s, oximetry is 96% to 97% with her CPAP on. Blood pressure has been stable. HEENT: Head and neck exam unremarkable. GENERAL: She is obese. She is in [id number] distress. NECK: Supple. LUNGS: Remarkable for distant tight wheezes. HEART: Regular rhythm. ABDOMEN: Soft and nontender. EXTREMITIES: Without clubbing, cyanosis, or edema. IMAGING STUDIES: Chest x-ray is unremarkable. There is slight haziness at the left base, but this is unchanged from 3 years ago. IMPRESSION: Chronic obstructive pulmonary disease exacerbation. I have added steroids, magnesium and we will continue with frequent nebulizer treatments. She needs some IV hydration to facilitate secretion clearance. We will follow with other physicians caring for. Job ID: [id number] 70 minute consult with 50% of time on unit coordinating care [facility]
[2019-04-14] MEDS: methylPREDNISolone Sod Succ 40 MG VIAL IVP SCH ×4 (00:57→16:54)
[2019-04-14] MEDS: Sodium Chloride 0.45% 1,000 ML IV SCH ×3 (03:12→19:27)
[2019-04-14] MEDS: Levothyroxine 175 MCG TAB PO SCH (05:42)
--- NOTE | 2019-04-14 06:26 | PDOC.FM ---
Addendum entered and electronically signed by Araceli Gonzalez MD 04/14/19 07:21 : Add on to A/P: #. Coag neg strep (/ Blood cx)- likely contaminant, clinical status and labs not suggestive of bacterial infection-f/u on final resutls Original Note: - Subjective Subjective: Per nursing patient has been on Bipap, came off of it shortly yesterday but desaturated to the 70s, was given MgS & started on steroids This morning patient says she feels much better, still on Bipap No fevers, has not gotten up to to walk - Objective MAR Reviewed: Yes Vital Signs & Weight: Vital Signs (12 hours) Temp Pulse Resp Pulse Ox 04/14/19 04:03 73 16 100 04/14/19 03:38 97.6 F 04/14/19 00:39 89 18 100 04/14/19 00:00 98.4 F 04/13/19 22:23 89 20 98 04/13/19 20:00 98.2 F 94 L 04/13/19 18:47 85 22 H 100 Weight Weight 103.328 kg Most Recent Monitor Data Heart Rate from ECG 78 NIBP 128/74 NIBP BP-Mean 92 Respiration from ECG 15 SpO2 100 I&O: 04/12/19 04/13/19 04/14/19 06:59 06:59 06:59 Intake Total 2850 Output Total 150 1400 Balance -150 1450 Result Diagrams: 04/14/19 06:32 04/14/19 06:32 Phys Exam - Physical Examination Constitutional: NAD bipap present HEENT: sclera anicteric Neck: full ROM dec breath sounds in mid to lower lungs bilaterally, no wheezing no focal findings Cardiovascular: RRR, no significant murmur Gastrointestinal: soft, non-tender Musculoskeletal: no edema Neurological: non-focal, moves all 4 limbs Psychiatric: A&O x 3 Dx/Plan (1) Sepsis Code(s): A41.9 - SEPSIS, UNSPECIFIED ORGANISM Status: Acute (2) PA (acute kidney injury) Code(s): N17.9 - ACUTE KIDNEY FAILURE, UNSPECIFIED Status: Acute (3) COPD (chronic obstructive pulmonary disease) Status: Acute (4) DM2 (diabetes mellitus, type 2) Status: Acute Qualifiers: Diabetes mellitus complication status: with unspecified complications (5) Depression with anxiety Status: Acute (6) HLD (hyperlipidemia) Code(s): E78.5 - HYPERLIPIDEMIA, UNSPECIFIED Status: Acute (7) CKD (chronic kidney disease) Code(s): N18.9 - CHRONIC KIDNEY DISEASE, UNSPECIFIED Status: Chronic Qualifiers: Chronic kidney disease stage: stage 2 (mild) Qualified Code(s): N18.2 - Chronic kidney disease, stage 2 (mild) (8) Diastolic CHF Code(s): I50.30 - UNSPECIFIED DIASTOLIC (CONGESTIVE) HEART FAILURE Status: Chronic (9) HTN (hypertension) Code(s): I10 - ESSENTIAL (PRIMARY) HYPERTENSION Status: Chronic (10) RO on CPAP Code(s): G47.33 - OBSTRUCTIVE SLEEP APNEA (ADULT) (PEDIATRIC) Status: Chronic (11) Tobacco abuse Code(s): Z72.0 - TOBACCO USE Status: Chronic - Plan Plan: 59 yo F with COPD on 4L of O2 at baseline here for SIRS 2/2 influenza #. SIRS 2/2 influenza -Flu A+, patient mildly improved and stable- Continue tamiflu & supportive care. Still requiring Bipap, will try trial off of it today if stays stable off can consider transfer out of [facility]. Abx discontinued as influenza source of sxs, neg. procal, dec WBC, fever free since admission. #. COPD exacerbation- Likely triggered by flu. S/P magnesium sulfate. IV steroids. Bipap support. Continue COPD meds. Pulm on board. Need to arrange outpt f/u w/ radiologic technology instructor. #. Hx of HFpEF: Patient up 1.5L , appears euvolemic, continue home lasix, monitor I/O #. Hypotension-resolved #. PA- resolved #. Lactic acid- resolved Dispo: >2 midnights, dispo pending clinical course which I expect to be at least another day dvt ppx: lovenox IVF: SL Addendum - Attending - Attending Attestation Date/Time: 04/14/19 8163 I personally evaluated the patient and discussed the management with Dr. Gonzalez. I agree with the History, Examination, Assessment and Plan documented above with any addition or exceptions noted below. Patient doing somewhat better today. Currently on CPAP and denies shortness of breath. She continues on treatment for SIRS 2/2 Influenza with COPD exacerbation. Wean CPAP/BIPAP as tolerated. Continue Tamiflu and symptomatic treatment. Pulm on board.
[2019-04-14 06:51] LABS: Anion Gap 13 mmol/L (10-20); BUN (Urea Nitrogen) 9 mg/dL (9.8-20.1); Calc. Creatinine Clearance 122 mL/min (70-130); Calcium 8.1 mg/dL (7.8-10.44); Carbon Dioxide 26 mmol/L (22-29); Chloride 100 mmol/L (98-107); Estimated GFR-MDRD 72; Glucose 162 mg/dL (70-105); Potassium 3.9 mmol/L (3.5-5.1); Sodium 135 mmol/L (136-145)
[2019-04-14 07:01] LABS: #Lymphocytes 0.5 thou/uL (1.20-3.40); #Monocytes 0.2 thou/uL (0.11-0.59); #Neutrophils 4.4 thou/uL (1.40-6.50); %Basophils 0.4 % (0.0-1.0); %Eosinophils 0.7 % (0.0-10.0); %Lymphocytes 9.7 % (21.0-51.0); %Monocytes 2.9 % (0.0-10.0); %Neutrophils 86.3 % (42.0-75.0); Hemoglobin 12.9 g/dL (12.0-16.0); Mean Corpuscular HGB CONC 33.6 g/dL (32.0-36.0); Mean Corpuscular Hemoglobin 30.7 pg (27.0-31.0); Mean Corpuscular Volume 91.5 fL (78.0-98.0); Mean Platelet Volume 7.7 fL (7.4-10.4); Platelet Count 122 thou/uL (130-400); RBC Distribution Width 14.3 % (11.5-14.5)
[2019-04-14] MEDS: HumaLOG 300 UNITS/3 ML VIAL SC SCH ×3 (08:54→16:54)
[2019-04-14] MEDS: Enoxaparin Sodium 40 MG/0.4 ML SYRINGE SC SCH (08:54)
[2019-04-14] MEDS: Insulin Glargine 30 UNITS in Pre-Filled Syringe 1 EACH SC SCH ×2 (08:54→21:22)
[2019-04-14] MEDS: Oseltamivir 75 MG CAP PO SCH ×2 (08:55→21:22)
[2019-04-14] MEDS: clonazePAM 1 MG TAB PO SCH ×2 (08:55→21:22)
[2019-04-14] MEDS: Isosorbide Mononitrate (ER) 30 MG TAB PO SCH (08:55)
[2019-04-14] MEDS: Gabapentin 300 MG CAP PO SCH ×2 (08:55→21:22)
[2019-04-14] MEDS: Furosemide 40 MG TAB PO SCH (08:55)
[2019-04-14] MEDS: DULoxetine 60 MG CAP PO SCH (08:56)
[2019-04-14] MEDS: Losartan 25 MG TAB PO SCH (08:56)
[2019-04-14] MEDS: Aspirin 81 mg Enteric Coated Tablet PO SCH (08:56)
[2019-04-14] MEDS: metFORMIN 500 MG TAB PO SCH ×2 (08:56→16:54)
--- NOTE | 2019-04-14 09:07 | RAD ---
Portable frontal chest radiograph: 04/14/2019 COMPARISON: 04/13/2019 HISTORY: Viral pneumonitis FINDINGS: There is stable mild nonspecific increased interstitial density with pulmonary hyperinflati on. No pneumothorax is seen. Patchy bibasilar opacity is noted, worsened since the prior exam. This may be related to edema or infectious pneumonitis. IMPRESSION: Worsening increased density in the lung bases may signify edema or infectious pneumonitis . Follow-up PA and lateral imaging of the chest: Treatment advised.
[2019-04-14] MEDS: Acetaminophen 325 MG TAB PO PRN (16:58)
[2019-04-14] MEDS: Amitriptyline HCl 25 MG TAB PO SCH (21:21)
[2019-04-14] MEDS: Atorvastatin Calcium 40 MG TAB PO SCH (21:22)
[2019-04-14] MEDS: HumaLOG 300 UNITS/3 ML VIAL SC PRN (21:23)
--- NOTE | 2019-04-14 21:49 | PRG ---
DATE OF SERVICE: 04/14/2019 SUBJECTIVE: Seth Gaines says she feels 100% better than she felt yesterday. I awakened her from sleep. She had her CPAP on. She was able to complete sentences without any shortness of breath. PHYSICAL EXAMINATION: VITAL SIGNS: This afternoon, heart rate is in the 70s, blood pressure is 124/69, respiratory rate in the teens. LUNGS: Clear today. HEART: Regular rhythm. ABDOMEN: Soft. EXTREMITIES: Without edema. LABORATORY DATA: White count 5, hemoglobin 12.9, platelets 122. Sodium 135, potassium 3.9, chloride 100, bicarb 26, BUN 9, creatinine 0.82. IMPRESSION: 1. Chronic obstructive pulmonary disease exacerbation. 2. Acute on chronic respiratory failure, dramatically improved with nebulized treatments, steroids, magnesium yesterday. PLAN: Continue supportive care. Tomorrow hopefully she can transfer out of the intermediate care unit. Cultures have been reviewed. She had a coag-negative staph on one blood culture, the other one was negative at 48 hours, I suspect this is a contaminant. Job ID: [id number]
[2019-04-15] MEDS: Acetaminophen 325 MG TAB PO PRN (00:06)
[2019-04-15] MEDS ORDERED: HumaLOG 300 UNITS/3 ML VIAL SC PRN (05:50)
--- NOTE | 2019-04-15 05:55 | PDOC.FM ---
- Subjective Subjective: Doing well, breathing much improved, couging minimal, able to walk around room Per nursing did require bipap most of yesterday since was sleeping - Objective MAR Reviewed: Yes Vital Signs & Weight: Vital Signs (12 hours) Temp Pulse Resp Pulse Ox 04/15/19 03:57 64 18 100 04/15/19 03:24 97.8 F 04/15/19 00:32 74 18 100 04/14/19 23:22 97.9 F 04/14/19 22:28 64 16 100 04/14/19 19:26 97.8 F 04/14/19 18:43 79 16 100 Weight Weight 103.328 kg Most Recent Monitor Data Heart Rate from ECG 63 NIBP 117/60 NIBP BP-Mean 79 Respiration from ECG 14 SpO2 100 I&O: 04/13/19 04/14/19 04/15/19 06:59 06:59 06:59 Intake Total 2850 1200 Output Total 150 1400 850 Balance -150 1450 350 Result Diagrams: 04/15/19 05:39 04/15/19 05:39 Phys Exam - Physical Examination Constitutional: NAD HEENT: PERRLA, moist MMs Neck: full ROM Respiratory: no wheezing dec lower breath sounds, fine inspiratory crackles Cardiovascular: RRR, no significant murmur Gastrointestinal: soft, non-tender Musculoskeletal: no edema Neurological: non-focal, moves all 4 limbs Psychiatric: normal affect, A&O x 3 Dx/Plan (1) Sepsis Code(s): A41.9 - SEPSIS, UNSPECIFIED ORGANISM Status: Acute (2) PA (acute kidney injury) Code(s): N17.9 - ACUTE KIDNEY FAILURE, UNSPECIFIED Status: Acute (3) COPD (chronic obstructive pulmonary disease) Status: Acute (4) DM2 (diabetes mellitus, type 2) Status: Acute Qualifiers: Diabetes mellitus complication status: with unspecified complications (5) Depression with anxiety Status: Acute (6) HLD (hyperlipidemia) Code(s): E78.5 - HYPERLIPIDEMIA, UNSPECIFIED Status: Acute (7) CKD (chronic kidney disease) Code(s): N18.9 - CHRONIC KIDNEY DISEASE, UNSPECIFIED Status: Chronic Qualifiers: Chronic kidney disease stage: stage 2 (mild) Qualified Code(s): N18.2 - Chronic kidney disease, stage 2 (mild) (8) Diastolic CHF Code(s): I50.30 - UNSPECIFIED DIASTOLIC (CONGESTIVE) HEART FAILURE Status: Chronic (9) HTN (hypertension) Code(s): I10 - ESSENTIAL (PRIMARY) HYPERTENSION Status: Chronic (10) RO on CPAP Code(s): G47.33 - OBSTRUCTIVE SLEEP APNEA (ADULT) (PEDIATRIC) Status: Chronic (11) Tobacco abuse Code(s): Z72.0 - TOBACCO USE Status: Chronic - Plan Plan: 59 yo F with COPD on 4L of O2 at baseline here for SIRS 2/2 influenza #. Viral pneumonitis-Flu A+, patient mildly improved and stable- Continue tamiflu & supportive care. Stable. #. COPD exacerbation- Likely triggered by flu. S/P magnesium sulfate. IV steroids. Bipap support. Continue COPD meds. Pulm on board. Need to arrange outpt f/u w/ certified credit counselor. #. Hx of HFpEF- Patient up 1.5L , appears euvolemic, continue home lasix, monitor I/O #. IDDM2- Not at goal, inc to aggressive SS to cover while on steroids. Continue metformin & daily lantus. #. Coag neg [facility] blood cx- 1/2, suspect contaminant #. Hypotension-resolved #. PA- resolved #. Lactic acid- resolved Dispo: >2 midnights, dispo pending how much does with physical therapy. If at baseline majority today can consider late discharge however I expect home tomorrow. Stable to transfer out of [facility]. dvt ppx: lovenox IVF: SL Addendum - Attending - Attending Attestation Date/Time: 04/15/19 1358 I personally evaluated the patient and discussed the management with Dr. Gonzalez I agree with the History, Examination, Assessment and Plan documented above with any addition or exceptions noted below. Admitted for sepsis due to influenza A. Continues to require BiPAP due to respiratory distress. Reports improvement in symptoms overall since admission. Pseudo hyponatriemia due to hyperglycemia. Continue elvia breathing treatments and steroids due to moderate COPD. Pos bld cx is contaminate. Platelets are improving. 213 to 122 to 146. White count has improved. PA resolved. Adjust ISS to improve glucose control. Transfer from [facility] if able to no require BiPAP today. Jennifer
[2019-04-15 06:03] LABS: #Lymphocytes 0.6 thou/uL (1.20-3.40); #Monocytes 0.4 thou/uL (0.11-0.59); #Neutrophils 7.4 thou/uL (1.40-6.50); %Eosinophils 0.1 % (0.0-10.0); %Lymphocytes 7.5 % (21.0-51.0); %Monocytes 4.7 % (0.0-10.0); %Neutrophils 87.7 % (42.0-75.0); Mean Corpuscular Hemoglobin 30.1 pg (27.0-31.0); Mean Corpuscular Volume 91.3 fL (78.0-98.0); Mean Platelet Volume 7.7 fL (7.4-10.4); Platelet Count 146 thou/uL (130-400); RBC Distribution Width 14.2 % (11.5-14.5); Red Blood Cell (RBC) Count 3.97 mill/uL (4.20-5.40); White Blood Cell (WBC) Count 8.4 thou/uL (4.8-10.8)
[2019-04-15 06:24] LABS: Anion Gap 14 mmol/L (10-20); BUN (Urea Nitrogen) 13 mg/dL (9.8-20.1); Calc. Creatinine Clearance 125 mL/min (70-130); Calcium 8.3 mg/dL (7.8-10.44); Carbon Dioxide 26 mmol/L (22-29); Chloride 98 mmol/L (98-107); Estimated GFR-MDRD 74; Glucose 194 mg/dL (70-105); Potassium 3.8 mmol/L (3.5-5.1); Sodium 134 mmol/L (136-145)
[2019-04-15] MEDS: HumaLOG 300 UNITS/3 ML VIAL SC PRN ×2 (06:38→10:58)
[2019-04-15] MEDS: methylPREDNISolone Sod Succ 40 MG VIAL IVP SCH ×5 (06:38→23:05)
[2019-04-15] MEDS: Sodium Chloride 0.45% 1,000 ML IV SCH ×2 (06:38→21:44)
[2019-04-15] MEDS: Levothyroxine 175 MCG TAB PO SCH (06:38)
[2019-04-15] MEDS: Insulin Glargine 30 UNITS in Pre-Filled Syringe 1 EACH SC SCH ×2 (09:24→21:45)
[2019-04-15] MEDS: DULoxetine 60 MG CAP PO SCH (09:25)
[2019-04-15] MEDS: Enoxaparin Sodium 40 MG/0.4 ML SYRINGE SC SCH (09:25)
[2019-04-15] MEDS: HumaLOG 300 UNITS/3 ML VIAL SC SCH ×3 (09:25→17:20)
[2019-04-15] MEDS: Losartan 25 MG TAB PO SCH (09:26)
[2019-04-15] MEDS: Isosorbide Mononitrate (ER) 30 MG TAB PO SCH (09:26)
[2019-04-15] MEDS: Oseltamivir 75 MG CAP PO SCH ×2 (09:26→21:45)
[2019-04-15] MEDS: Aspirin 81 mg Enteric Coated Tablet PO SCH (09:26)
[2019-04-15] MEDS: metFORMIN 500 MG TAB PO SCH ×2 (09:26→17:20)
[2019-04-15] MEDS: Furosemide 40 MG TAB PO SCH (09:26)
[2019-04-15] MEDS: clonazePAM 1 MG TAB PO SCH ×2 (09:26→21:45)
[2019-04-15] MEDS: Gabapentin 300 MG CAP PO SCH ×2 (09:27→21:45)
--- NOTE | 2019-04-15 11:28 | PRG ---
DATE OF SERVICE: 04/15/2019 SUBJECTIVE: Seth Gaines is a 59-year-old female who says she is feeling better, she is less short of breath. Morbidly obese. OBJECTIVE: VITAL SIGNS: Sats 100%, temperature 97, blood pressure respiratory rate 18. CHEST: Decreased breath sounds. No wheezing. CARDIAC: Normal S1 and S2. No gallops. ABDOMEN: No masses. LABORATORY DATA: Lytes are normal. CBC is unremarkable. ASSESSMENT AND PLAN: Chronic obstructive pulmonary disease, respiratory failure, morbid obesity, and sleep apnea. Minimize sedation. I agree with present neb treatment, steroids, BiPAP. Encouraged to lose weight. We will follow. Job ID: [id number]
[2019-04-15] MEDS: Mometasone 100 MCG HFA INHALER INH SCH (18:50)
[2019-04-15] MEDS: Atorvastatin Calcium 40 MG TAB PO SCH (21:45)
[2019-04-15] MEDS: Amitriptyline HCl 25 MG TAB PO SCH (21:45)
[2019-04-16 03:55] LABS: #Lymphocytes 0.8 thou/uL (1.20-3.40); #Monocytes 0.3 thou/uL (0.11-0.59); #Neutrophils 9.1 thou/uL (1.40-6.50); %Basophils 0.2 % (0.0-1.0); %Eosinophils 0.1 % (0.0-10.0); %Lymphocytes 7.6 % (21.0-51.0); %Monocytes 3.1 % (0.0-10.0); Hemoglobin 12.6 g/dL (12.0-16.0); Mean Corpuscular HGB CONC 32.9 g/dL (32.0-36.0); Mean Corpuscular Volume 91.2 fL (78.0-98.0); Mean Platelet Volume 7.6 fL (7.4-10.4); Platelet Count 155 thou/uL (130-400); RBC Distribution Width 14.2 % (11.5-14.5); White Blood Cell (WBC) Count 10.2 thou/uL (4.8-10.8)
[2019-04-16 04:13] LABS: Anion Gap 15 mmol/L (10-20); BUN (Urea Nitrogen) 18 mg/dL (9.8-20.1); Calc. Creatinine Clearance 118 mL/min (70-130); Calcium 8.7 mg/dL (7.8-10.44); Carbon Dioxide 29 mmol/L (22-29); Chloride 96 mmol/L (98-107); Estimated GFR-MDRD 70; Glucose 164 mg/dL (70-105); Sodium 136 mmol/L (136-145)
[2019-04-16] MEDS ORDERED: Lidocaine 5% Patch TD PRN (06:00)
[2019-04-16] MEDS: Levothyroxine 175 MCG TAB PO SCH (06:10)
[2019-04-16] MEDS: methylPREDNISolone Sod Succ 40 MG VIAL IVP SCH (06:11)
[2019-04-16] MEDS: Mometasone 100 MCG HFA INHALER INH SCH (06:54)
[2019-04-16] MEDS: HumaLOG 300 UNITS/3 ML VIAL SC SCH ×2 (08:01→11:02)
[2019-04-16] MEDS: Insulin Glargine 30 UNITS in Pre-Filled Syringe 1 EACH SC SCH (08:02)
[2019-04-16] MEDS: Isosorbide Mononitrate (ER) 30 MG TAB PO SCH (08:05)
[2019-04-16] MEDS: metFORMIN 500 MG TAB PO SCH (08:05)
[2019-04-16] MEDS: DULoxetine 60 MG CAP PO SCH (08:05)
[2019-04-16] MEDS: Losartan 25 MG TAB PO SCH (08:06)
[2019-04-16] MEDS: Oseltamivir 75 MG CAP PO SCH (08:06)
[2019-04-16] MEDS: Furosemide 40 MG TAB PO SCH (08:06)
[2019-04-16] MEDS: Gabapentin 300 MG CAP PO SCH (08:07)
[2019-04-16] MEDS: Aspirin 81 mg Enteric Coated Tablet PO SCH (08:07)
[2019-04-16] MEDS: Enoxaparin Sodium 40 MG/0.4 ML SYRINGE SC SCH (08:08)
[2019-04-16] MEDS: clonazePAM 1 MG TAB PO SCH (08:51)
--- NOTE | 2019-04-16 08:51 | PDOC.FM ---
- Subjective Subjective: Breathing mildly improved, very dyspneic with just going to bathroom - Objective MAR Reviewed: Yes Vital Signs & Weight: Vital Signs (12 hours) Temp Pulse Resp Pulse Ox 04/16/19 07:14 97.2 F L 04/16/19 06:40 75 19 04/16/19 03:38 98.1 F 04/16/19 03:02 96 04/16/19 03:01 99 04/15/19 23:25 97.9 F 04/15/19 22:53 99 Weight Weight 103.476 kg Most Recent Monitor Data Heart Rate from ECG 73 NIBP 158/83 NIBP BP-Mean 108 Respiration from ECG 18 SpO2 100 I&O: 04/15/19 04/16/19 04/17/19 06:59 06:59 06:59 Intake Total 2580 2650 Output Total 1450 1400 Balance 1130 1250 Result Diagrams: 04/16/19 03:23 04/16/19 03:23 Phys Exam - Physical Examination Constitutional: NAD HEENT: PERRLA, moist MMs Neck: full ROM Respiratory: no wheezing dec breath sounds in bases Cardiovascular: RRR, no significant murmur Gastrointestinal: soft Neurological: non-focal, moves all 4 limbs Dx/Plan (1) Sepsis Code(s): A41.9 - SEPSIS, UNSPECIFIED ORGANISM Status: Acute (2) PA (acute kidney injury) Code(s): N17.9 - ACUTE KIDNEY FAILURE, UNSPECIFIED Status: Acute (3) COPD (chronic obstructive pulmonary disease) Status: Acute (4) DM2 (diabetes mellitus, type 2) Status: Acute Qualifiers: Diabetes mellitus complication status: with unspecified complications (5) Depression with anxiety Status: Acute (6) HLD (hyperlipidemia) Code(s): E78.5 - HYPERLIPIDEMIA, UNSPECIFIED Status: Acute (7) CKD (chronic kidney disease) Code(s): N18.9 - CHRONIC KIDNEY DISEASE, UNSPECIFIED Status: Chronic Qualifiers: Chronic kidney disease stage: stage 2 (mild) Qualified Code(s): N18.2 - Chronic kidney disease, stage 2 (mild) (8) Diastolic CHF Code(s): I50.30 - UNSPECIFIED DIASTOLIC (CONGESTIVE) HEART FAILURE Status: Chronic (9) HTN (hypertension) Code(s): I10 - ESSENTIAL (PRIMARY) HYPERTENSION Status: Chronic (10) RO on CPAP Code(s): G47.33 - OBSTRUCTIVE SLEEP APNEA (ADULT) (PEDIATRIC) Status: Chronic (11) Tobacco abuse Code(s): Z72.0 - TOBACCO USE Status: Chronic - Plan Plan: 59 yo F with COPD on 4L of O2 at baseline here for SIRS 2/2 influenza #. Viral pneumonitis-Flu A+, patient mildly improved and stable- Continue tamiflu & supportive care. Stable. Needs more time for recovery since still very SOB with mild exertion. #. COPD exacerbation- Likely triggered by flu. S/P magnesium sulfate. IV steroids. Bipap support. Continue COPD meds. Pulm on board. Need to arrange outpt f/u w/ glass washer. #. Hx of HFpEF- Patient up 1.5L , appears euvolemic, continue home lasix, monitor I/O #. IDDM2- Not at goal, inc to aggressive SS to cover while on steroids. Continue metformin & daily lantus. #. Coag neg staph blood cx- 1/2, suspect contaminant #. Hypotension-resolved #. PA- resolved #. Lactic acid- resolved Dispo: >2 midnights, dispo likely tomorrow or later pending clinical course dvt ppx: lovenox IVF: SL Addendum - Attending - Attending Attestation Date/Time: 04/16/19 3030 I personally evaluated the patient and discussed the management with Dr. Gonzalez I agree with the History, Examination, Assessment and Plan documented above with any addition or exceptions noted below. Patient off BiPAP majority of day yesterday. Ok to transfer out of [facility]. Encourage ambulation to monitor respiratory status. Once patient at baseline, ok to d/c to home. Continue tamiflu. Discussed risk and precautions for the holidays ABrayMD
--- NOTE | 2019-04-16 09:25 | PRG ---
DATE OF SERVICE: 04/16/2019 SUBJECTIVE: This morning, she is better, less shortness of breath, less cough. OBJECTIVE: VITAL SIGNS: Temperature 97, blood pressure 158/83, pulse 76, respiratory rate 18. CHEST: No wheezing or crackles. CARDIAC: Normal S1 and S2. No gallops. ABDOMEN: No masses. IMPRESSION: Morbid obesity, influenza A, and sleep apnea. PLAN: Switch over to p.o. prednisone. She will be discharged home. Follow up with Dr. Fajardo. She is to finish her course of Tamiflu. Job ID: [id number]
[2019-04-16 11:11] VITALS: TEMP 96.6
[2019-04-16 13:48] VITALS: BP 205/106
[2019-04-16] MEDS ORDERED: Lidocaine Patch Removal 1 EACH TOP SCH (18:00)
[2019-04-17] MEDS ORDERED: predniSONE 20 MG TAB PO SCH (08:00)
== END 2019-04-16 16:47 | disposition home or self-care (01) | DRG 871 ==
LOC: ERS 17:18 → IMCU/EMU 22:22
PROVIDERS: ADMIT Emergency Medicine; ATTEND Emergency Medicine
DX: A41.89 Other specified sepsis (principal); J96.01 Acute respiratory failure with hypoxia; J10.08 Influenza due to other identified influenza virus with other specified pneumonia; N17.9 Acute kidney failure, unspecified; J44.0 Chronic obstructive pulmonary disease with (acute) lower respiratory infection; Z68.41 Body mass index [BMI] 40.0-44.9, adult; I13.0 Hypertensive heart and chronic kidney disease with heart failure and stage 1 through stage 4 chronic kidney disease, or unspecified chronic kidney disease; I50.32 Chronic diastolic (congestive) heart failure; J44.1 Chronic obstructive pulmonary disease with (acute) exacerbation; E87.1 Hypo-osmolality and hyponatremia; E87.2 Acidosis; E78.5 Hyperlipidemia, unspecified; E03.9 Hypothyroidism, unspecified; I25.10 Atherosclerotic heart disease of native coronary artery without angina pectoris; Z95.5 Presence of coronary angioplasty implant and graft; I25.2 Old myocardial infarction; E66.01 Morbid (severe) obesity due to excess calories; F32.9 Major depressive disorder, single episode, unspecified; F41.9 Anxiety disorder, unspecified; F17.200 Nicotine dependence, unspecified, uncomplicated; N18.2 Chronic kidney disease, stage 2 (mild); E11.22 Type 2 diabetes mellitus with diabetic chronic kidney disease; G47.33 Obstructive sleep apnea (adult) (pediatric); E11.65 Type 2 diabetes mellitus with hyperglycemia; I95.9 Hypotension, unspecified
CPT/HCPCS: 36415; 36416; 71045; 80048; 80053; 81003; 83605; 83880; 84145; 85025; 87040; 87149; 87449; 87804; 87899; 93005; 94640; 94660; 94664; J0456; J0696; J1650; J1815; J2920; J3475; J3490; J7611; J7620

== ENCOUNTER 2019-12-15 12:56 | Inpatient (IN) | payer OTHER ==
[~2019-12-15 12:56] MED LIST changes: +Iopamidol-370 76% 500 ML 1 ML ONE; -Sodium Chloride 0.9% 15 ML NEB ONE
[2019-12-15 13:25] LABS: Bilirubin Negative (Negative); Blood, Urine Negative (Negative); Clarity Clear (Clear); Glucose, Urine (Dipstick) Greater than 1000 mg/dL (Negative); Ketone, Urine Negative (Negative); Leukocyte Negative Leu/uL (Negative); Nitrite Negative (Negative); Protein, Urine (Dipstick) Negative (Neg-Trace); Specific Gravity, Urine 1.018 (1.002-1.036); Urobilinogen Normal mg/dL (Less than 2)
[2019-12-15] MEDS ORDERED: Ondansetron PF 4 MG/2 ML Vial ONE (13:45)
[2019-12-15] MEDS ORDERED: Morphine 4 MG/ML VIAL ONE (13:45)
[2019-12-15 14:06] LABS: #Basophils 0.1 thou/uL (0.0-0.2); #Eosinphils 0.1 thou/uL (0.0-0.7); #Lymphocytes 2.1 thou/uL (1.20-3.40); #Monocytes 0.6 thou/uL (0.11-0.59); #Neutrophils 10.2 thou/uL (1.40-6.50); %Basophils 0.6 % (0.0-1.0); %Eosinophils 0.8 % (0.0-10.0); %Lymphocytes 16.2 % (21.0-51.0); %Monocytes 4.5 % (0.0-10.0); Hemoglobin 14.7 g/dL (12.0-16.0); Mean Corpuscular HGB CONC 33.5 g/dL (32.0-36.0); Mean Corpuscular Hemoglobin 31.4 pg (27.0-31.0); Mean Corpuscular Volume 93.8 fL (78.0-98.0); Mean Platelet Volume 7.4 fL (7.4-10.4); Platelet Count 309 thou/uL (130-400); RBC Distribution Width 14.8 % (11.5-14.5); Red Blood Cell (RBC) Count 4.67 mill/uL (4.20-5.40)
[2019-12-15 14:28] LABS: ALT (SGPT) 18 U/L (8-55); AST (SGOT) 11 U/L (5-34); Albumin 4.2 g/dL (3.5-5.0); Alkaline Phosphatase 95 U/L (40-110); Anion Gap 14 mmol/L (10-20); BUN (Urea Nitrogen) 13 mg/dL (9.8-20.1); Bilirubin, Total 0.3 mg/dL (0.2-1.2); Calc. Creatinine Clearance 0 mL/min (70-130); Calcium 9.8 mg/dL (7.8-10.44); Carbon Dioxide 31 mmol/L (22-29); Chloride 97 mmol/L (98-107); Estimated GFR-MDRD 66; Globulin 4.3 g/dL (2.4-3.5); Glucose 117 mg/dL (70-105); Lipase 79 U/L (8-78); Potassium 3.8 mmol/L (3.5-5.1); Protein, Total 8.5 g/dL (6.0-8.3); Sodium 138 mmol/L (136-145)
--- NOTE | 2019-12-15 16:19 | PDOC.FPRHP ---
- History of Present Illness Chief Complaint: Abdominal Pain History of Present Illness: Pt reports to ED today for abdominal pain which started on Monday but the pain grew in intensity today after she started having pain that began radiating to her back. She states that that last time she had pain like this was a year ago. She has chronic pancreatitis diagnosed in 2004 due to alcoholism but pt does not drink etoh anymore. She is unsure what the cause is of this current flare up. She admitted to nausea, constipation and diarrhea, but denied emesis, fever/chills, CP and SOB. ED Course: Pt given morphine in the ED - Allergies/Adverse Reactions Allergies Allergy/AdvReac Type Severity Reaction Status Date / Time codeine Allergy severe Verified 06/06/18 13:25 confusion, violent morphine Allergy vomiting Verified 06/06/18 13:25 Poultry Allergy flushing, Verified 01/24/18 15:19 burning sensation tetracycline Allergy Nausea Verified 06/06/18 13:25 aspirin AdvReac Nausea Verified 06/06/18 13:25 - Home Medications Medication Instructions Recorded Confirmed Type Albuterol Sulfate [Proair HFA] 2 puff INH QID PRN 05/20/15 12/15/19 History Amitriptyline HCl 25 mg PO HS 05/20/15 12/15/19 History Aspirin [Aspirin EC] 81 mg PO QAM 05/20/15 12/15/19 History Atorvastatin Calcium 40 mg PO HS 05/20/15 12/15/19 History DULoxetine [Cymbalta] 60 mg PO QAM 05/20/15 12/15/19 History Furosemide [Lasix] 40 mg PO QAM 05/20/15 12/15/19 History Gabapentin 900 mg PO TID 05/20/15 12/15/19 History Ibuprofen 600 mg PO TID PRN 05/20/15 12/15/19 History Insulin Aspart [NovoLOG FlexPen] 6 unit SC TID-WM 05/20/15 12/15/19 History Isosorbide Mononitrate [Isosorbide 30 mg PO QAM 05/20/15 12/15/19 History Mononitrate ER] Levemir Flexpen [Levemir FlexPen] 0 unit SC ASDIR 05/20/15 12/15/19 History Levothyroxine Sodium 175 mcg PO QAM 05/20/15 12/15/19 History Lidocaine 5% Patch [Lidoderm 5% 1 patch TOP PRN PRN 05/20/15 12/15/19 History Patch] Losartan [Cozaar] 25 mg PO DAILY 05/20/15 12/15/19 History Nitroglycerin 0.4 mg SL Q5MIN PRN 05/20/15 12/15/19 History Tiotropium [Spiriva Handihaler] 1 puff INH DAILY PRN 05/20/15 12/15/19 History clonazePAM 1 mg PO Q8HR 05/20/15 12/15/19 History Beclomethasone Dipropionate [Qvar 2 puff INH BID 12/28/17 12/15/19 History Redihaler] Ipratropium/Albuterol Sulfate 3 ml IN QID 04/12/19 12/15/19 History [DuoNeb] metFORMIN [Glucophage] 1,000 mg PO BID-WM tab 04/16/19 12/15/19 Rx Canagliflozin [Invokana] 100 mg PO DAILY-AC 12/15/19 12/15/19 History - History PMHx: -CHF -CAD s/p 2 stents -COPD dependent on O2 -Hypothyrodism -T2DM -HLD -HTN -RO -Tobacco Abuse -MDD -Anxiety -Osteoarthritis -Fibromyalgia -Sciatica PSHx: -appendectomy -cholescystecomy FHx: grandmother: pancreatic CA sisters: breast CA Social: -denies current etoh use. no drug use. tobacco use, 1/2 PPD for 50 years. - Review of Systems General: denies: fever/chills ENT: denies: nasal congestion Respiratory: denies: cough, congestion Cardiovascular: denies: chest pain, palpitation, edema Gastrointestinal: reports: nausea, diarrhea, constipation, abdominal pain. denies: vomiting Genitourinary: denies: incontinence, dysuria, polyuria Skin: denies: rashes Musculoskeletal: reports: arthritis/arthralgias. denies: pain, tenderness, stiffness, swelling Neurological: denies: numbness - Vital signs BP: 105/57, HR 86, RR 18, Temp 98.1, 99% O2 on NC 3L - Physical Exam Constitutional: NAD HEENT: normocephalic and atraumatic, PERRLA Neck: supple Chest: no-tender to palpation Heart: RRR, normal S1/S2, no murmurs/rubs/gallops, pulses present Lungs: CTAB, no respiratory distress, good air movement, no rales/rhonchi, no wheezing Abdomen: bowel sounds present, other (distention, epigastric tenderness) Skin: no rash/lesions, capillary refill <2 seconds Psychiatric: normal mood and affect, good judgment and insight, intact recent and remote memory FMR H&P: Results - Labs Result Diagrams: 12/16/19 05:05 12/16/19 05:05 Lab results: WBC 13.0 thou/uL (4.8-10.8) H 12/15/19 13:53 Hgb 14.7 g/dL (12.0-16.0) 12/15/19 13:53 Hct 43.8 % (36.0-47.0) 12/15/19 13:53 MCV 93.8 fL (78.0-98.0) 12/15/19 13:53 Plt Count 309 thou/uL (130-400) 12/15/19 13:53 Neutrophils % 78.0 % (42.0-75.0) H 12/15/19 13:53 Sodium 138 mmol/L (136-145) 12/15/19 13:53 Potassium 3.8 mmol/L (3.5-5.1) 12/15/19 13:53 Chloride 97 mmol/L (98-107) L 12/15/19 13:53 Carbon Dioxide 31 mmol/L (22-29) H 12/15/19 13:53 BUN 13 mg/dL (9.8-20.1) 12/15/19 13:53 Creatinine 0.88 mg/dL (0.6-1.1) 12/15/19 13:53 Glucose 117 mg/dL (70-105) H 12/15/19 13:53 Calcium 9.8 mg/dL (7.8-10.44) 12/15/19 13:53 Total Bilirubin 0.3 mg/dL (0.2-1.2) 12/15/19 13:53 AST 11 U/L (5-34) 12/15/19 13:53 ALT 18 U/L (8-55) 12/15/19 13:53 Alkaline Phosphatase 95 U/L (40-110) 12/15/19 13:53 Serum Total Protein 8.5 g/dL (6.0-8.3) H 12/15/19 13:53 Albumin 4.2 g/dL (3.5-5.0) 12/15/19 13:53 Lipase 79 U/L (8-78) H 12/15/19 13:53 Urine Ketones Negative mg/dL (Negative) 12/15/19 13:04 Urine Blood Negative (Negative) 12/15/19 13:04 Urine Nitrite Negative (Negative) 12/15/19 13:04 Ur Leukocyte Esterase Negative Rocío/uL (Negative) 12/15/19 13:04 - Radiology Interpretation CT scan - abdomen Status: image reviewed by me (CT findings suggesting pancreatitis. Fatty change of liver. Moderate diverticulosis of the sigmoid colon.), report reviewed by me FMR H&P: A/P - Problem List (1) Pancreatitis Current Visit: Yes Status: Acute Code(s): K85.90 - ACUTE PANCREATITIS WITHOUT NECROSIS OR INFECTION, UNSP (2) COPD (chronic obstructive pulmonary disease) Current Visit: No Status: Acute (3) Depression with anxiety Current Visit: No Status: Acute (4) Fibromyalgia Current Visit: No Status: Acute (5) HLD (hyperlipidemia) Current Visit: No Status: Acute Code(s): E78.5 - HYPERLIPIDEMIA, UNSPECIFIED (6) Diabetes mellitus type 2 in obese Current Visit: No Status: Chronic Code(s): E11.9 - TYPE 2 DIABETES MELLITUS WITHOUT COMPLICATIONS; E66.9 - OBESITY, UNSPECIFIED (7) Diastolic CHF Current Visit: No Status: Chronic Code(s): I50.30 - UNSPECIFIED DIASTOLIC ( CONGESTIVE) HEART FAILURE (8) HTN (hypertension) Current Visit: No Status: Chronic Code(s): I10 - ESSENTIAL (PRIMARY) HYPERTENSION (9) Tobacco abuse Current Visit: No Status: Chronic Code(s): Z72.0 - TOBACCO USE - Plan 59 y/o F with Chronic Pancreatitis, CHF, CAD, COPD, T2DM presents with abdominal pain and nausea. ##Acute Flare of Chronic Pancreatitis -CT evidence of pancreatitis -lipase 79 -LR @ 130 for now keeping in mind patient's CHF -IV zofran -prn pain medication -LDH and lactic acid pending ##CHF -Pt has history of CAD s/p stents -09/2019 lipid panel wnl -home medications: lasix, lipitor, isosorbide mononitrate, losartan, asa ##COPD -pt on o2 at home -NC @ 3-4L -home meds: symbicort, spiriva, proair ##T2DM -A1C in 09/2019 = 7.4 -SSI -home meds: novolog, metformin, levemir, gabapentin ##Hypothyroidism -TSH in 09/2019 = 2 -home med: levothyroxine ##MDD/Anxiety -amitriptyline, cymbalta, clonazepam Code: Full VTE PPX: Lovenox Diet: NPO PCP: DORI Dispo: pt admitted for observation. keeping NPO. on fluids. pain control. will monitor symptoms. FMR H&P: Upper Level - Plan Date/Time: 12/15/19 1619 I, [Araceli Gonzalez], have evaluated this patient and agree with findings/plan as outlined by web design intern resident. Pertinent changes/additions are listed here. 34 yo M with PMH of GERD and enlarged heart presented as tfx from [place] ER for chest pain. Started yesterday evening, feels like sharp/pressure. Wasn't improved with omeprazole so came into ER. Worse with laying down, improved with standing and leaning forward. Feels as if chest is "full." Given nitro, ASA, morphine, Zofran which improved chest pain initially but now has returned. Hx of enlarged heart found incidentally on a shoulder xray 6 months ago. PCP had planned to monitor with q6mo CXRs. 15 pack year hx. VS: 98bpm, 96% RA, 108/78mmHg PE: Gen: mild distress from pain Chest: No tenderness to palpation CV: RRR, no murmurs, rubs and gallups Abd: Soft, ND, NT Resp: CTAB, no respiratory distress Extrem: No edema, pulses 2+ BNP <10 Trop < 0.01 EKG: No acute ST/T wave changes, possible electrical alternans Labs: A/P: #Atypical chest pain -Differential lerner including pleuritis vs. GERD vs. cardiomyopathy -Trop negative x1, EKG no acute changes, tele monitoring, will obtain TTE -Will get LDH, lactic acid -IV pantoprazole #GERD -IV pantoprazole Code: Full PCP: None Diet: HH LOS: <2 midnights Addendum - Attending - Attending Attestation Date/Time: 12/15/192125 I personally evaluated the patient and discussed the management with resident team I agree with the History, Examination, Assessment and Plan documented above with any addition or exceptions noted below. 59 yo female with multiple medical conditions and history of chronic pancreatitis presents with acute flare. Pain started Monday. Associated symptoms include nausea and poor appetite. Denies alcohol or new drug use. No change in DM management or extreme glucose levels. s/p cystectomy. Does have family history of pancreatic cancer along with other risk factors. Reports only difference in this attack is current chest pain. - Acute on chronic pancreatitis: Unsure etiology. Admit. Start IVFs and IV meds. NPO overnight and slowly advance. Reviewed imaging. No reported concern for mass effect in pancreatic area. - Chest pain: Trend trops. EKG no concerning ST changes. Risk present. - Chronic conditions. Monitor and adjust as needed. Will decrease insulin regiment due to NPO status at present. Jennifer
--- NOTE | 2019-12-15 16:24 | CT ---
CT ABDOMEN AND PELVIS PERFORMED WITH CONTRAST ENHANCEMENT: History: Abdominal pain. History of pancreatitis. Comparison: 12-28-17 FINDINGS: Lung bases show some chronic appearing interstitial changes. Evidence for some air trapping. The liver shows diffuse fatty change. The liver measures 16 cm in length. The spleen is unremarkable. There is some mild peripancreatic inflammatory change. No pseudocyst. Gallbladder has been removed. Right and left adrenal glands and right and left kidneys are normal in size. There is no significant periaortic or mesenteric adenopathy. CT OF PELVIS PERFORMED WITH INTRAVENOUS CONTRAST ENHANCEMENT: Diverticulosis of the descending colon and more severe changes of the sigmoid colon are seen without inflammatory change. Appendix is not definitely identified but there is no inflammatory change noted. No pelvic lymphadenopathy or mass. There are arthritic changes of the spine. IMPRESSION: 1. CT findings suggesting pancreatitis. 2. Fatty change of the liver. 3. Moderate diverticulosis of the sigmoid colon. POS: [facility]
[2019-12-15] MEDS ORDERED: Dextrose 5% in Water 1,000 ML IV PRN (16:58)
[2019-12-15] MEDS ORDERED: HumaLOG 300 UNITS/3 ML VIAL SC PRN (16:58)
[2019-12-15] MEDS ORDERED: Acetaminophen 325 MG TAB PO PRN (16:58)
[2019-12-15] MEDS ORDERED: Senokot S 8.6-50 MG TAB PO PRN (16:58)
[2019-12-15] MEDS ORDERED: Dextrose 50% Abboject 50 ML SYRINGE SLOW IVP PRN (16:58)
[2019-12-15] MEDS ORDERED: Ondansetron ODT 4 MG TAB PO PRN (16:58)
[2019-12-15] MEDS ORDERED: Famotidine/PF 20 mg/2ml Vial SLOW IVP SCH (19:00)
[2019-12-15] MEDS ORDERED: PROVENTIL INHALER 6.7 G (200 INHALATIONS) INH PRN (19:33)
[2019-12-15] MEDS: Lactated Ringer's 1,000 ML IV SCH (19:50)
[2019-12-15] MEDS: Ondansetron PF 4 MG/2 ML Vial IVP PRN (19:54)
[2019-12-15] MEDS: Morphine 2 MG/ML VIAL SLOW IVP PRN (19:54)
[2019-12-15 20:25] LABS: Lactic Acid 0.8 mmol/L (0.5-2.2)
[2019-12-15] MEDS ORDERED: Famotidine 20 MG TAB PO SCH (21:00)
[2019-12-15 22:10] VITALS: BMI 38.9
[2019-12-16] MEDS: Lactated Ringer's 1,000 ML IV SCH ×5 (02:50→21:19)
[2019-12-16] MEDS: Ondansetron PF 4 MG/2 ML Vial IVP PRN ×3 (02:50→18:43)
[2019-12-16] MEDS: Morphine 2 MG/ML VIAL SLOW IVP PRN ×5 (02:53→22:44)
[2019-12-16] MEDS: Levothyroxine 150 MCG TAB PO SCH (05:06)
[2019-12-16 05:34] LABS: Band 2 % (5-11); Hemoglobin 13.4 g/dL (12.0-16.0); Lymphocytes 11 % (21-51); MDiff Complete? YES; Mean Corpuscular HGB CONC 32.3 g/dL (32.0-36.0); Mean Corpuscular Hemoglobin 30.3 pg (27.0-31.0); Mean Corpuscular Volume 93.8 fL (78.0-98.0); Mean Platelet Volume 7.4 fL (7.4-10.4); Monocytes 7 % (0-10); Neutrophil 80 % (42-75); Platelet Count 294 thou/uL (130-400); Platelet Morphology Comment Appears Adequate; RBC Distribution Width 14.9 % (11.5-14.5); RBC Morphology Normal; Red Blood Cell (RBC) Count 4.43 mill/uL (4.20-5.40); White Blood Cell (WBC) Count 13.2 thou/uL (4.8-10.8)
[2019-12-16 05:47] LABS: ALT (SGPT) 16 U/L (8-55); AST (SGOT) 11 U/L (5-34); Albumin 3.8 g/dL (3.5-5.0); Alkaline Phosphatase 82 U/L (40-110); Anion Gap 13 mmol/L (10-20); BUN (Urea Nitrogen) 10 mg/dL (9.8-20.1); Bilirubin, Total 0.4 mg/dL (0.2-1.2); Calc. Creatinine Clearance 109 mL/min (70-130); Calcium 9.2 mg/dL (7.8-10.44); Carbon Dioxide 28 mmol/L (22-29); Chloride 99 mmol/L (98-107); Estimated GFR-MDRD 68; Glucose 120 mg/dL (70-105); Potassium 3.9 mmol/L (3.5-5.1); Protein, Total 7.8 g/dL (6.0-8.3); Sodium 136 mmol/L (136-145)
--- NOTE | 2019-12-16 06:53 | PDOC.FM ---
- Subjective Subjective: 59 y/o F with PMH of Chronic Pancreatitis, CHF, CAD, COPD, T2DM presents with abdominal pain and nausea. Overnight, no acute events. Patient endorses 10/10 crampy pain in the epigastric region mainly, and diffusely throughout abdomen. Patient also describes a burning sensation that sounds like GERD. - Objective MAR Reviewed: Yes Vital Signs & Weight: Vital Signs (12 hours) Temp Pulse Resp BP Pulse Ox 12/16/19 03:56 98.1 F 91 18 98/64 93 L 12/16/19 00:00 98.1 F 95 18 99/65 96 Weight Weight 96.672 kg I&O: 12/14/19 12/15/19 12/16/19 06:59 06:59 06:59 Intake Total 2300 Balance 2300 Result Diagrams: 12/16/19 05:05 12/16/19 05:05 Phys Exam - Physical Examination Constitutional: NAD HEENT: moist MMs, sclera anicteric Neck: full ROM Respiratory: no wheezing, clear to auscultation bilateral Cardiovascular: RRR, no significant murmur ditended, hypoactive bowel sounds, tender diffusely, napoleon epigastric and LUQ Musculoskeletal: no edema, pulses present Neurological: moves all 4 limbs Psychiatric: normal affect, A&O x 3 Dx/Plan - Plan Plan: 59 y/o F with Chronic Pancreatitis, CHF, CAD, COPD, T2DM presents with abdominal pain and nausea. Acute Flare of Chronic Pancreatitis -CT evidence of pancreatitis -lipase 79 -LR @ 130 for now keeping in mind patient's CHF -IV zofran -prn pain medication -GGT 25 - RUQ ultrasound pending to r/o retained stone GERD -start on PPI CHF -Pt has history of CAD s/p stents -09/2019 lipid panel wnl -home medications: lasix, lipitor, isosorbide mononitrate, losartan, asa COPD -pt on o2 at home -NC @ 3-4L at baseline -home meds: symbicort, spiriva, proair T2DM -A1C pending -SSI -home meds: novolog, metformin, levemir, gabapentin Hypothyroidism -TSH in 09/2019 = 2 -TSH pending -home med: levothyroxine MDD/Anxiety -amitriptyline, cymbalta, clonazepam Code: Full VTE PPX: Lovenox Diet: NPO PCP: DORI Dispo: pt admitted for observation. keeping NPO. on fluids. pain control. will monitor symptoms.
[2019-12-16] MEDS ORDERED: TIOTROPIUM INH SCH (09:00)
[2019-12-16] MEDS: Famotidine/PF 20 mg/2ml Vial SLOW IVP SCH (09:01)
[2019-12-16] MEDS: Enoxaparin Sodium 40 MG/0.4 ML SYRINGE SC SCH (09:04)
[2019-12-16] MEDS: Aspirin 81 mg Enteric Coated Tablet PO SCH (09:15)
[2019-12-16] MEDS: DULoxetine 60 MG CAP PO SCH (09:15)
[2019-12-16] MEDS: Losartan 25 MG TAB PO SCH (09:15)
[2019-12-16] MEDS: metFORMIN 500 MG TAB PO SCH ×2 (09:16→17:18)
[2019-12-16] MEDS ORDERED: Pantoprazole 40 MG GRANULES PACKET PO SCH ×2 (10:00)
[2019-12-16] MEDS ORDERED: Lidocaine 2% Viscous Solution 20 ML, Aluminum & Magnesium Hydroxide 30 ML, Donnatal Eli... SSW SCH (10:00)
[2019-12-16 11:33] LABS: Hemoglobin A1c 6.6 % (4.0-6.0)
[2019-12-16 12:36] LABS: SARS-CoV-2 MS2 Positive; SARS-CoV-2 N Gene Negative; SARS-CoV-2 S Gene Negative; SARS-CoV-2 by NAA Not Detected (NotDetected); SARS-CoV-2 orf1ab Negative
--- NOTE | 2019-12-16 13:31 | PRG ---
DATE OF SERVICE: 12/16/2019 ADDENDUM: This is an addendum to the note of Dr. Dominga Daniel. Ms. Gaines is a 59-year-old patient with a prior history of pancreatitis. She presented with epigastric abdominal pain and CT evidence of pancreatitis, even though her lipase is only 79. She is feeling somewhat better this morning. I would recommend not feeding her until she is tolerating p.o. pain medication. We can probably later today or early tomorrow be switching her to [place] for pain control. She has also had a cholecystectomy. Previous lipid profile demonstrated normal triglyceride levels. She used to be a heavy drinker, to which she attributes her pancreatitis but does not drink anymore. We will also go ahead and do a right upper quadrant ultrasound to look at the common duct to make sure there is no dilatation. Job ID: [id number]
[2019-12-16] MEDS: Pantoprazole 40 MG GRANULES PACKET PO SCH (13:41)
--- NOTE | 2019-12-16 14:31 | ULT ---
ULTRASOUND GALLBLADDER RIGHT UPPER QUADRANT: HISTORY: Pancreatitis. COMPARISON: CT exam prior day. FINDINGS: Real-time, gordillo scale, and color evaluation of the right upper quadrant of the abdomen was performed. The pancreas is not well seen. Diffuse increased hepatic echotexture. Liver measures 13 cm in agusto gth. No intrahepatic or retrohepatic biliary dilatation. The right kidney is without mass, hydronephrosis, or abnormal calcifications. Prior cholecystectomy. Common bile duct is not well evaluated and cannot be seen. The pancreas is not well seen. IMPRESSION: 1. Diffuse hepatic steatosis. 2. Nonvisualization of the pancreas likely due to habitus. 3. Prior cholecystectomy. POS: [facility]
[2019-12-16] MEDS ORDERED: Ibuprofen 200 MG TAB PO PRN (18:36)
[2019-12-16] MEDS ORDERED: Amitriptyline HCl 25 MG TAB PO SCH (21:00)
[2019-12-16] MEDS ORDERED: Atorvastatin Calcium 40 MG TAB PO SCH (21:00)
[2019-12-16] MEDS: Gabapentin 300 MG CAP PO SCH (21:17)
[2019-12-16] MEDS: clonazePAM 1 MG TAB PO SCH (21:18)
[2019-12-17] MEDS: Ondansetron PF 4 MG/2 ML Vial IVP PRN (00:27)
[2019-12-17] MEDS: clonazePAM 1 MG TAB PO SCH ×2 (05:16→14:31)
[2019-12-17] MEDS: Levothyroxine 150 MCG TAB PO SCH (05:16)
[2019-12-17] MEDS: Lactated Ringer's 1,000 ML IV SCH (05:16)
[2019-12-17] MEDS: Morphine 2 MG/ML VIAL SLOW IVP PRN (05:16)
--- NOTE | 2019-12-17 06:12 | PDOC.FM ---
- Subjective Subjective: Patient is doing well today. States her pain is 3/10 and much improved. She would like to try to eat. - Objective MAR Reviewed: Yes Vital Signs & Weight: Vital Signs (12 hours) Temp Pulse Resp BP Pulse Ox 12/16/19 20:08 96 12/16/19 19:35 98.8 F 97 20 135/82 96 Weight Weight 96.672 kg I&O: 12/15/19 12/16/19 12/17/19 06:59 06:59 06:59 Intake Total 2300 4273 Balance 2300 4273 Result Diagrams: 12/16/19 05:05 12/16/19 05:05 Phys Exam - Physical Examination Constitutional: NAD HEENT: sclera anicteric Neck: full ROM Respiratory: no wheezing, clear to auscultation bilateral Cardiovascular: RRR, no significant murmur Gastrointestinal: soft, positive bowel sounds tenderness to palpation on LLQ Musculoskeletal: no edema, pulses present Neurological: moves all 4 limbs Psychiatric: A&O x 3 Skin: normal turgor Dx/Plan - Plan Plan: 59 y/o F with Chronic Pancreatitis, CHF, CAD, COPD, T2DM presents with abdominal pain and nausea. Acute Flare of Chronic Pancreatitis -CT evidence of pancreatitis -lipase 79 -LR @ 130 for now keeping in mind patient's CHF -IV zofran -prn pain medication -GGT 25 - RUQ showed diffuse hepatic steatosis, no visualization of pancrease, prior cholecystectomy GERD -start on PPI Hepatic Steatosis -consider starting Vitamin E CHF -Pt has history of CAD s/p stents -09/2019 lipid panel wnl -home medications: lasix, lipitor, isosorbide mononitrate, losartan, asa COPD -pt on o2 at home -NC @ 3-4L at baseline -home meds: symbicort, spiriva, proair T2DM -A1C 6.6 -SSI -home meds: novolog, metformin, levemir, gabapentin Hypothyroidism -TSH in 09/2019 = 2 -TSH 1.2915 -home med: levothyroxine MDD/Anxiety -amitriptyline, cymbalta, clonazepam Code: Full VTE PPX: Lovenox Diet: Full liquids PCP: DORI Dispo: inpatient
[2019-12-17] MEDS ORDERED: Mometasone 100 MCG/PUFF (1 INHALER) INH SCH (06:30)
[2019-12-17 07:19] VITALS: BP 118/78; TEMP 98.1
[2019-12-17] MEDS ORDERED: Empagliflozin 10 MG TAB PO SCH (07:30)
[2019-12-17] MEDS ORDERED: Furosemide 40 MG TAB PO SCH (09:00)
[2019-12-17] MEDS: metFORMIN 500 MG TAB PO SCH ×2 (10:01→17:41)
[2019-12-17] MEDS: Aspirin 81 mg Enteric Coated Tablet PO SCH (10:01)
[2019-12-17] MEDS: Pantoprazole 40 MG GRANULES PACKET PO SCH (10:02)
[2019-12-17] MEDS: DULoxetine 60 MG CAP PO SCH (10:02)
[2019-12-17] MEDS: Enoxaparin Sodium 40 MG/0.4 ML SYRINGE SC SCH (10:02)
[2019-12-17] MEDS: Losartan 25 MG TAB PO SCH (10:03)
[2019-12-17] MEDS: Gabapentin 300 MG CAP PO SCH ×2 (10:03→14:31)
[2019-12-17] MEDS: Famotidine/PF 20 mg/2ml Vial SLOW IVP SCH (10:51)
--- NOTE | 2019-12-17 13:15 | PRG ---
DATE OF SERVICE: 12/17/2019 Ms. Gaines looks and feels much better this morning. She is now localizing her pain much more down in the left middle and left lower quadrants more consistent with possible mild diverticulitis. In the event, even this has abated and her appetite is good. If she tolerates a full liquid to soft diet, she will be discharged later. Job ID: [id number]
--- NOTE | 2019-12-17 16:53 | PQF ---
Q16 2018 [facility] Updated: CLINICAL DOCUMENTATION CLARIFICATION FORM: Dear Dr. Daniel / Dr. Schneider Date 12/17/19 Please exercise your independent, professional judgment in responding to the clarification form. Clinical indicators are provided on the bottom of this form for your review. Please check appropriate box(es): Conflicting documentation was noted in the Medical Record; please clarify if patient is being treated/monitored for: [ x ] PANCREATITIS [X ] DIVERTICULITIS [ ] Other diagnosis [ ] Unable to determine As per patient, she has a history of diverticulitis/diverticulosis it is not clear. That could explain her LLQ pain that persisted at a 3/10 while her acute pain that brought her in was 10/10 and more epigastric in nature (pancreatitits) . Her pancreatitis has resolved and should diverticulosis be present, it can be worked up outpatient. In addition, please specify: Present on Admission (POA): [ x ] Yes [ ] No [ ] Unable to determine For continuity of documentation, please document condition throughout progress notes and discharge summary. Thank You. PN 12/16 (HAYDEN): "ACUTE FLARE OF PANCREATITIS" PN 12/16 (ANDREA): "SHE IS NOW LOCALIZING HER PAIN MUCH MORE DOWN IN THE LEFT MIDDLE AND LEFT LOWER QUADRANTS MORE CONSISTENT WITH POSSIBLE MILD DIVERTICULITIS." LIPASE 79 (12/14) RISKS: H/O CHRONIC PANCREATITIS (PN 12/16 LIGHT) DIFFUSE HEPATIC STEATOSIS (PN 12/16-LIGHT) H/O ALCOHOL ABUSE (ER NOTE) TREATMENT: IV LACTATED RINGERS (12/14-12/16) IV ZOFRAN PRN (SEE MAR- GIVEN 12/16) MORPHINE FOR PAIN CONTROL PRN (SEE MAR- GIVEN 12/16) CLEAR LIQUID DIET CDS/Gear And Spline Grinder Signature: Andie Lozano RN Phone #: [phone] Date: 12/17/19 This is a permanent part of the Medical Record [facility]
--- NOTE | 2019-12-17 17:12 | PQF ---
Q53 2018 [facility] Updated: February 2019 CLINICAL DOCUMENTATION CLARIFICATION FORM: Dear Dr. Daniel / Dr. Schneider Date 12/17/19 Please exercise your independent, professional judgment in responding to the clarification form. Clinical indicators are provided on the bottom of this form for your review. Please check appropriate box(es): [X ] Chronic Respiratory Failure only [ X ] with Hypoxia [ ] with Hypercapnia [ ] Respiratory Insufficiency [ ] Hypoxia [ ] Other diagnosis ] Unable to determine In addition, please specify: Present on Admission (POA): [ X ] Yes [ ] No [ ] Unable to determine For continuity of documentation, please document condition throughout progress notes and discharge summary. Thank You. H&P (SELLI): "PT ON O2 AT HOME" NC @ 3-4L AT BASELINE RISKS: H/O COPD, DIASTOLIC HF ( H&P) TREATMENT: HOME MED- SYMBICORT (PN 12/16-LIGHT) HOME MED- SPIRIVA (PN 12/16-LIGHT) HOME MED- PROAIR (P 12/16-LIGHT) SUPPLEMENTAL O2 @ 3-4 L CDS/Field Installation Technician Signature: Andie Lozano RN Phone #: [phone] Date: 12/17/19 This is a permanent part of the Medical Record [facility]
--- NOTE | 2019-12-19 05:36 | DIS ---
DATE OF ADMISSION: 12/15/2019 DATE OF DISCHARGE: 12/17/2019 RESIDENT: Dominga Daniel PGY1 ADMITTING ATTENDING: Janki Elizabeth MD DISCHARGE ATTENDING: Zack Schneider MD. CONSULTS: None. PROCEDURES: None. PRIMARY DIAGNOSIS: Acute pancreatitis. SECONDARY DIAGNOSES: 1. GERD. 2. Hepatic steatosis. 3. CHF. 4. COPD. 5. Type 2 diabetes. 6. Hypothyroidism. 7. Major depression and anxiety. DISCHARGE MEDICATIONS: 1. Acetaminophen 650 p.o. q.4 hours. 2. Protonix 40 mg p.o. daily. 3. Losartan 25 mg p.o. daily. 4. Amitriptyline 25 mg p.o. at bedtime. 5. NovoLog FlexPen 6 units with starting sugar up to 150, increasing by 2 units per 50 of blood sugar. 6. Levemir FlexPen 60 units in the morning and 52 units in the p.m. 7. Cymbalta 60 mg p.o. daily. 8. Atorvastatin 40 mg at bedtime. 9. Ibuprofen 600 mg t.i.d. p.r.n. 10. Albuterol sulfate 2 puffs 4 times daily p.r.n. 11. Lasix 40 mg p.o. daily. 12. Clonazepam 1 mg every 8 hours. 13. Gabapentin 100 mg p.o. t.i.d. 14. Isosorbide mononitrate 30 mg p.o. daily. 15. Aspirin 81 mg daily. 16. Levothyroxine 175 mcg p.o. daily. 17. Qvar 2 puffs inhalations b.i.d. 18. DuoNeb 3 mL 4 times daily. 19. Metformin 1000 mg b.i.d. with meals. 20. Invokana 100 mg daily before food. Discontinued medications: None. HISTORY OF PRESENT ILLNESS/HOSPITAL COURSE: The patient presented to the ED with abdominal pain that increased in intensity. The pain was radiating to her back. Says she has not had pain like this in over a year. She does have a history of chronic pancreatitis diagnosed in 2004 secondary to alcoholism, but she does not drink any more. She had no associated nausea, constipation, diarrhea. The patient had some pain throughout the hospitalization that resolved, and received IV fluids and pain medication. PO trial was started and fluids were stopped, and she was put on a full clear-liquid diet with p.o. pain medication. She tolerated this well. Abdominal pain decreased to 3/10. Vitals were stable throughout hospitalization. She had persistent left lower quadrant abdominal pain and she states she has a history of diverticulitis and says that she is going to get this worked up outpatient. DISPOSITION: Stable. DISCHARGE INSTRUCTIONS: Location: Home. Diet: Diabetic diet. Encouraged starting with a full-liquid diet and advance to a bland diet as able. Activity: Activity as tolerated. Followup: Follow up with PCP. The patient also endorsed a GI specialist that she follows up with, so followup is also encouraged within a week or 2 for her LLQ pain. Job ID: [id number] [facility]
== END 2019-12-17 18:34 | disposition home or self-care (01) | DRG 439 ==
LOC: ERS 12:56 → T4-B 16:15 → OBSVTOIN 16:15
PROVIDERS: ADMIT Family Medicine; ATTEND Family Medicine
DX: K85.90 Acute pancreatitis without necrosis or infection, unspecified (principal); K57.92 Diverticulitis of intestine, part unspecified, without perforation or abscess without bleeding; I50.32 Chronic diastolic (congestive) heart failure; Z20.828 Contact with and (suspected) exposure to other viral communicable diseases; I25.10 Atherosclerotic heart disease of native coronary artery without angina pectoris; J44.9 Chronic obstructive pulmonary disease, unspecified; E03.9 Hypothyroidism, unspecified; E11.9 Type 2 diabetes mellitus without complications; E78.5 Hyperlipidemia, unspecified; G47.33 Obstructive sleep apnea (adult) (pediatric); F32.9 Major depressive disorder, single episode, unspecified; F41.9 Anxiety disorder, unspecified; M19.90 Unspecified osteoarthritis, unspecified site; K86.1 Other chronic pancreatitis; K21.9 Gastro-esophageal reflux disease without esophagitis; M79.7 Fibromyalgia; F17.210 Nicotine dependence, cigarettes, uncomplicated; I11.0 Hypertensive heart disease with heart failure; R07.9 Chest pain, unspecified; K76.0 Fatty (change of) liver, not elsewhere classified; E66.9 Obesity, unspecified; Z88.1 Allergy status to other antibiotic agents; Z88.5 Allergy status to narcotic agent; Z88.8 Allergy status to other drugs, medicaments and biological substances; Z79.82 Long term (current) use of aspirin; Z79.84 Long term (current) use of oral hypoglycemic drugs; Z95.5 Presence of coronary angioplasty implant and graft; Z99.81 Dependence on supplemental oxygen; Z90.49 Acquired absence of other specified parts of digestive tract; Z68.39 Body mass index [BMI] 39.0-39.9, adult
CPT/HCPCS: 36415; 36416; 74177; 76705; 80053; 81003; 82977; 83036; 83605; 83615; 83690; 84443; 84484; 85007; 85025; 85027; 87635; 93005; 94640; 96361; 96372; 96374; 96375; 96376; G0378; J1650; J2270; J2405; J7620; Q9967; S0028; U0003

== ENCOUNTER 2020-05-11 13:30 | Emergency (ER) | payer OTHER ==
[2020-05-11 15:50] LABS: #Basophils 0.1 thou/uL (0.0-0.2); #Eosinphils 0.2 thou/uL (0.0-0.7); #Lymphocytes 3.1 thou/uL (1.20-3.40); #Monocytes 0.6 thou/uL (0.11-0.59); #Neutrophils 10.1 thou/uL (1.40-6.50); %Basophils 0.6 % (0.0-1.0); %Eosinophils 1.3 % (0.0-10.0); %Lymphocytes 21.8 % (21.0-51.0); %Monocytes 4.6 % (0.0-10.0); %Neutrophils 71.8 % (42.0-75.0); Hemoglobin 14.6 g/dL (12.0-16.0); Mean Corpuscular Hemoglobin 29.6 pg (27.0-31.0); Mean Corpuscular Volume 89.6 fL (78.0-98.0); Platelet Count 325 thou/uL (130-400); RBC Distribution Width 14.3 % (11.5-14.5); Red Blood Cell (RBC) Count 4.93 mill/uL (4.20-5.40)
[2020-05-11] MEDS ORDERED: Fentanyl 100 MCG/2 ML VIAL ONE (15:53)
[2020-05-11 16:05] LABS: ALT (SGPT) 20 U/L (8-55); AST (SGOT) 13 U/L (5-34); Albumin 3.9 g/dL (3.5-5.0); Alkaline Phosphatase 105 U/L (40-110); Anion Gap 15 mmol/L (10-20); BUN (Urea Nitrogen) 12 mg/dL (9.8-20.1); Bilirubin, Total 0.3 mg/dL (0.2-1.2); Calc. Creatinine Clearance 0 mL/min (70-130); Carbon Dioxide 32 mmol/L (22-29); Chloride 94 mmol/L (98-107); Globulin 4.5 g/dL (2.4-3.5); Glucose 64 mg/dL (70-105); Potassium 4.1 mmol/L (3.5-5.1); Protein, Total 8.4 g/dL (6.0-8.3); Sodium 137 mmol/L (136-145)
--- NOTE | 2020-05-11 16:10 | RAD ---
EXAM: XR Chest 1 View Portable PROVIDED CLINICAL HISTORY: Chest pain COMPARISON: 04/14/2019 FINDINGS: The cardiac silhouette appears prominent, likely least partially on the basis of portable technique. There is diffuse prominence of the pulmonary interstitium. There is no focal consolidation, pleural fluid or pneumothorax apparent. IMPRESSION: Diffuse prominence of the pulmonary interstitium. This appears worsened with respect to prior examina tions. Worsening of chronic lung disease and acute on chronic lung disease could be considered.
--- NOTE | 2020-05-11 16:11 | RAD ---
XR Shoulder Rt 3 View STANDARD History: Pain Comparison: None. Findings: No acute displaced fracture or malalignment. Probable fibrotic changes in the lungs. Moderate narrowing of the acromioclavicular joint with osteophyte formation. Impression: Acromioclavicular joint degenerative changes. No acute osseous abnormality.
--- NOTE | 2020-05-11 16:25 | CT ---
CT chest with IV contrast HISTORY: Right supraclavicular pain and swelling. FINDINGS: Scattered mild emphysematous changes are present throughout each lung. Mild diffuse periphe ral linear interstitial thickening extending to the pleural surfaces. Mild dependent atelectasis greater on the left than the right. No pleural fluid or pneumothorax. Small amount of pleural thickening at the posterior aspect of the r ight hemithorax inferiorly with small amount of dystrophic calcification. Calcified granulomata of the spleen are consistent with healed granulomatous disease. Calcification in coronary arteries and other arterial structures. Enlarged lymph nodes are present th roughout the mediastinum with the exception of each hilum. The largest lymph nodes are at the aorticopulmonary window 3.4 cm x 1.5 cm and the subcarinal space 3.1 cm x 1.2 cm. Marker was placed in the area of palpable concern at the right supraclavicular level. No underlying m ass is apparent. Degenerative changes of the shoulders and thoracic spine. Within the partially visualized upper abdom en, hemostasis clips are present in the gallbladder fossa. IMPRESSION : No evidence of supraclavicular mass or cause of swallowing. Mild to moderately enlarged mediastinal lymph nodes as detailed above. If clinical history does not p rovide an explanation, please consider radionucleotide PET scan or follow-up CT chest to evaluate for stability. Mild emphysematous changes with findings of mild interstitial lung disease. Pleural calcification at the right posterior base may be related to asbestos-related pleural disease or prior hematoma or infection. Atherosclerosis.
[2020-05-11] MEDS ORDERED: Acetaminophen/Codeine 30-300mg Tablet ONE (16:50)
== END 2020-05-11 18:32 | disposition home or self-care (01) ==
LOC: ERS 13:30
DX: M25.411 Effusion, right shoulder (principal); R59.0 Localized enlarged lymph nodes; Z79.899 Other long term (current) drug therapy; Z79.4 Long term (current) use of insulin; E11.9 Type 2 diabetes mellitus without complications; E78.5 Hyperlipidemia, unspecified; E78.00 Pure hypercholesterolemia, unspecified; I50.9 Heart failure, unspecified; J44.9 Chronic obstructive pulmonary disease, unspecified; E03.9 Hypothyroidism, unspecified; F17.210 Nicotine dependence, cigarettes, uncomplicated
CPT/HCPCS: 36415; 36416; 71045; 71260; 80053; 85025; 93005; 96374; J3010; Q9967

== ENCOUNTER 2020-07-20 12:16 | Inpatient (IN) | payer OTHER ==
[2020-07-20] MEDS ORDERED: Magnesium 2 GM/50 ML BAG (IN WATER) ONE (13:02)
[2020-07-20] MEDS ORDERED: Dexamethasone 10 MG/ML VIAL ONE (13:02)
[2020-07-20 13:15] LABS: #Basophils 0.1 thou/uL (0.0-0.2); #Eosinphils 0.1 thou/uL (0.0-0.7); #Lymphocytes 3.3 thou/uL (1.20-3.40); #Monocytes 0.6 thou/uL (0.11-0.59); #Neutrophils 11.7 thou/uL (1.40-6.50); %Basophils 0.5 % (0.0-1.0); %Eosinophils 0.7 % (0.0-10.0); %Lymphocytes 20.8 % (21.0-51.0); %Monocytes 3.9 % (0.0-10.0); %Neutrophils 74.1 % (42.0-75.0); Hemoglobin 14.9 g/dL (12.0-16.0); Mean Corpuscular HGB CONC 32.9 g/dL (32.0-36.0); Mean Corpuscular Hemoglobin 28.9 pg (27.0-31.0); Mean Platelet Volume 7.6 fL (7.4-10.4); Platelet Count 312 thou/uL (130-400); RBC Distribution Width 14.1 % (11.5-14.5); Red Blood Cell (RBC) Count 5.15 mill/uL (4.20-5.40); White Blood Cell (WBC) Count 15.8 thou/uL (4.8-10.8)
--- NOTE | 2020-07-20 13:15 | RAD ---
RADIOGRAPH CHEST 1 VIEW: DATE: 07/20/2020 TIME: 1:05 PM HISTORY: 60-year-old female with dyspnea COMPARISON: 05/11/2020 FINDINGS: Diffuse mild interstitial densities. No consolidation. No pneumothorax. No interval change. IMPRESSION: No interval change in the diffuse mild interstitial densities
[2020-07-20 13:46] LABS: ALT (SGPT) 24 U/L (8-55); AST (SGOT) 13 U/L (5-34); Alkaline Phosphatase 108 U/L (40-110); Anion Gap 13 mmol/L (10-20); BUN (Urea Nitrogen) 19 mg/dL (9.8-20.1); Bilirubin, Total 0.4 mg/dL (0.2-1.2); CK (CPK) 55 U/L (29-168); Calc. Creatinine Clearance 0 mL/min (70-130); Calcium 9.6 mg/dL (7.8-10.44); Carbon Dioxide 36 mmol/L (22-29); Chloride 94 mmol/L (98-107); Globulin 4.3 g/dL (2.4-3.5); Glucose 116 mg/dL (70-105); Lipase 5 U/L (8-78); Potassium 3.5 mmol/L (3.5-5.1); Protein, Total 8.3 g/dL (6.0-8.3); Sodium 139 mmol/L (136-145)
--- NOTE | 2020-07-20 15:35 | PDOC.FPRHP ---
- History of Present Illness Chief Complaint: cough History of Present Illness: 60 yo F w/ PMH of chronic pancreatitis, tobacco abuse, DM2, HLD, HFpEF, aortic valve stenosis, COPD on 4 L home O2, hypothyroidism, cardiac stents x2, presents for 2 weeks of productive cough, rhinorrhea, exertional SOB, chest pains from coughing, sore throat from coughing. She was seen in clinic last week, had a negative Covid test, and was given a 5 day course of 40 mg prednisone as well as azithromycin, but she reports this has not touched her illness. She is also taking her Symbicort, Spiriva, and duonebs. She denies headache, fever/chills, nausea/vomiting, diarrhea/constipation. She denies covid contacts. In the ER, EKG showed NSR. CXR showed no acute findings. D dimer was negative. BNP and Trop were WNL. LA was 2.7. WBC of 15.8 without a left shift. Pulse in 90s, R in 20s. She was given levaquin 750 mg, decadron 10 mg, 2 grams Mag, and 1 L NS. - Allergies/Adverse Reactions Allergies Allergy/AdvReac Type Severity Reaction Status Date / Time codeine Allergy severe Verified 06/06/18 13:25 confusion, violent morphine Allergy vomiting Verified 06/06/18 13:25 Poultry Allergy flushing, Verified 01/24/18 15:19 burning sensation tetracycline Allergy Nausea Verified 06/06/18 13:25 aspirin AdvReac Nausea Verified 06/06/18 13:25 - Home Medications Medication Instructions Recorded Confirmed Type Amitriptyline HCl 25 mg PO HS 05/20/15 07/20/20 History Aspirin [Aspirin EC] 81 mg PO QAM 05/20/15 07/20/20 History Atorvastatin Calcium 80 mg PO HS 05/20/15 07/20/20 History DULoxetine [Cymbalta] 60 mg PO QAM 05/20/15 07/20/20 History Furosemide [Lasix] 40 mg PO QAM 05/20/15 07/20/20 History Gabapentin 900 mg PO BID 05/20/15 07/20/20 History Ibuprofen 600 mg PO TID PRN 05/20/15 07/20/20 History Insulin Aspart [NovoLOG FlexPen] 6 unit SC TID-WM 05/20/15 07/20/20 History Isosorbide Mononitrate [Isosorbide 30 mg PO QAM 05/20/15 07/20/20 History Mononitrate ER] Levemir Flexpen [Levemir FlexPen] 0 unit SC ASDIR 05/20/15 07/20/20 History Levothyroxine Sodium 175 mcg PO QAM 05/20/15 07/20/20 History Losartan [Cozaar] 25 mg PO DAILY 05/20/15 07/20/20 History Nitroglycerin 0.4 mg SL Q5MIN PRN 05/20/15 07/20/20 History Tiotropium [Spiriva Handihaler] 1 puff INH DAILY PRN 05/20/15 07/20/20 History clonazePAM 1 mg PO BID 05/20/15 07/20/20 History Ipratropium/Albuterol Sulfate 3 ml IN QID 04/12/19 07/20/20 History [DuoNeb] metFORMIN [Glucophage] 1,000 mg PO BID-WM tab 04/16/19 07/20/20 Rx Canagliflozin [Invokana] 100 mg PO DAILY 12/15/19 07/20/20 History Acetaminophen [Tylenol Regular 650 mg PO Q4H PRN #30 tab 12/17/19 07/20/20 Rx Strength] Pantoprazole [Protonix] 40 mg PO DAILY #30 pk 12/17/19 07/20/20 Rx Tiotropium [place] [Spiriva] 1 puff INH DAILY 07/20/20 07/20/20 History hydrOXYzine HCl [Hydroxyzine HCl] 50 mg PO Q8H PRN 07/20/20 07/20/20 History - History PMHx: CAD stent placement and 2007; chronic respiratory failure on 4L O2 at home and bipap at night; T2DM, COPD, current tobacco abuse, aortic stenosis, anxiety, depressison, hypothyroidism, abdominal wall hernia, osteoarthritis, chronic pancreatitis PSHx: appendectomy 1998, bladder sling, BTL 1986, tonsillectomy/adenoidectomy 1967, hysterectomy 1992, cholecystectomy, Left heart cath x3 1997, 2007, 2012; Carpal tunnel 2011; cardiac stent 98, 200; FHx: breast cancer in sister; CAD father, mother, sister; lung cancer in sister; pancreatic cancer in grandmother, hypothyroidism mother and sister, diabetes in sister Social: Quit smoking marijuana a few months ago. Smokes 1 PPD for about the last 50 years. Denies alcohol use. Is currently on a slow wean of her clonazepam with her PCP. - Review of Systems General: denies: fever/chills, weight/appetite/sleep changes ENT: reports: nasal congestion, rhinorrhea Respiratory: reports: cough, congestion, shortness of breath, exercise intolerance Cardiovascular: denies: chest pain, palpitation, edema Gastrointestinal: denies: nausea, vomiting, diarrhea, constipation, abdominal pain Skin: denies: rashes, lesions Musculoskeletal: denies: pain, tenderness Neurological: denies: numbness, weakness Psychological: reports: anxiety, depression - Vital signs BP: 115/63 HR: 88 RR: 17 Tmax: 98.4 Pox: 98% on 4L Wt: 94.8 kg - Physical Exam Constitutional: NAD, awake, alert and oriented HEENT: normocephalic and atraumatic, PERRLA, EOMI, oropharynx clear Neck: supple, no LAD Heart: RRR, normal S1/S2, no murmurs/rubs/gallops Lungs: other (diffuse inspiratory and expiratory rhonchi) Abdomen: soft, non-tender, bowel sounds present Musculoskeletal: normal structure, normal tone, ROM grossly normal Neurological: no focal deficit Skin: no rash/lesions, good turgor, capillary refill <2 seconds Heme/Lymphatic: no unusual bruising or bleeding, no purpura Psychiatric: normal mood and affect, good judgment and insight, intact recent and remote memory FMR H&P: Results - Labs Result Diagrams: 07/20/20 12:47 07/20/20 12:47 Lab results: WBC 15.8 thou/uL (4.8-10.8) H 07/20/20 12:47 Hgb 14.9 g/dL (12.0-16.0) 07/20/20 12:47 Hct 45.3 % (36.0-47.0) 07/20/20 12:47 MCV 88.0 fL (78.0-98.0) 07/20/20 12:47 Plt Count 312 thou/uL (130-400) 07/20/20 12:47 Neutrophils % 74.1 % (42.0-75.0) 07/20/20 12:47 Sodium 139 mmol/L (136-145) 07/20/20 12:47 Potassium 3.5 mmol/L (3.5-5.1) 07/20/20 12:47 Chloride 94 mmol/L (98-107) L 07/20/20 12:47 Carbon Dioxide 36 mmol/L (22-29) H 07/20/20 12:47 BUN 19 mg/dL (9.8-20.1) 07/20/20 12:47 Creatinine 0.95 mg/dL (0.6-1.1) 07/20/20 12:47 Glucose 116 mg/dL (70-105) H 07/20/20 12:47 Lactic Acid 2.7 mmol/L (0.5-2.2) H 07/20/20 13:15 Calcium 9.6 mg/dL (7.8-10.44) 07/20/20 12:47 Total Bilirubin 0.4 mg/dL (0.2-1.2) 07/20/20 12:47 AST 13 U/L (5-34) 07/20/20 12:47 ALT 24 U/L (8-55) 07/20/20 12:47 Alkaline Phosphatase 108 U/L (40-110) 07/20/20 12:47 Creatine Kinase 55 U/L (29-168) 07/20/20 12:47 B-Natriuretic Peptide 72.2 pg/mL (0-100) 07/20/20 12:47 Serum Total Protein 8.3 g/dL (6.0-8.3) 07/20/20 12:47 Albumin 4.0 g/dL (3.5-5.0) 07/20/20 12:47 Lipase 5 U/L (8-78) L 07/20/20 12:47 - EKG Interpretation EKG: NSR FMR H&P: A/P - Plan COPD exacerbation, failed outpatient therapy Chronic respiratory failure, O2 Dependent (4L BNC) RO on Bipap at night -CXR no acute findings, diffusely wheezing on exam, on home 4L NC -Continue steroids, will check procal before continuing antibiotics -Duonebs CARLOS q4h, tessalon perles PRN, guaifenesin -Keep O2 sats >88% -continue home Spiriva and symbicort -continue Bipap at night SIRS, likely 2/2 viral infection Lactic acidosis -Pt tachypneic, tachycardic, elevated WBC (no left shift), with lactic acidosis -Given levaquin and 1 NS in ED -trend LA, add fluids if not improved -will continue levaquin if procal elevated Covid PUI -Covid swab pending -contact precautions until results Hypomagnesemia -monitor and replace as necessary Chronic pancreatitis -unsure if creon available while in hospital, will look into this DM2 -aggressive SSI, continue home insulin -Hypoglycemia protocol -ACHS accuchecks HLD, HFpEF, AV Stenosis Cardiac stent x2 -Last known echo 2014, showed , normal EF, suggestive of diastolic dysfunction -continue home medications Tobacco abuse -Nicotine patch ordered -claims counsel cessation Hypothyroid -continue home medications GERD -continue protonix Hepatic steatosis -aware HTN -continue home medications Weaning Benzodiazepines -Continue 0.5 mg QAM and 1 mg QPM Anxiety Osteoarthritis Fibromyalgia Sciatica -Aware Diet: CC DVT ppx: lovenox GI ppx: protonix PCP: DORI Aquino Code: Full Dispo: Admit to medical inpt, LOS likely >48 hours Addendum - Attending - Attending Attestation Date/Time: 07/20/20 3520 I personally evaluated the patient and discussed the management with Dr. Jacey Vyas. I agree with the History, Examination, Assessment and Plan documented above with any addition or exceptions noted below. Patient with history of chronic resp failure 2/2 COPD here with 2-3 weeks of worsening dyspnea, increased sputum, and cough. She was seen in clinic last week, treated for COPD, but reports did not improve during this time. Today, she has similar lung exam to her outpatient findings, but noted mild elevation in WBC, other labs overall stable. She is not requiring increased O2 requirement above her baseline supplementation. CXR does not appear to show any acute changes. Patient will be admitted for COPD exacerbation, failed outpatient th erapy. Continue steroids, nebs, consider Abx if PCT elevated. COVID swab, though suspect this is not the cause given the timecourse of symptoms. Mucolytics as needed. Further mgmt pending clinical course.
[2020-07-20] MEDS ORDERED: Calcium Carbonate 500 MG ChewTAB PO PRN (16:34)
[2020-07-20] MEDS ORDERED: Acetaminophen 325 MG TAB PO PRN (16:34)
[2020-07-20] MEDS ORDERED: Dextrose 5% in Water 1,000 ML IV PRN (16:34)
[2020-07-20] MEDS ORDERED: Acetaminophen 650 MG Suppository PR PRN (16:34)
[2020-07-20] MEDS ORDERED: Dextrose 50% Abboject 50 ML SYRINGE SLOW IVP PRN (16:34)
[2020-07-20] MEDS ORDERED: Ondansetron ODT 4 MG TAB PO PRN (16:34)
[2020-07-20] MEDS ORDERED: HumaLOG 300 UNITS/3 ML VIAL SC PRN ×2 (16:34)
[2020-07-20] MEDS ORDERED: guaiFENesin 200 MG TAB PO PRN (17:03)
[2020-07-20 17:05] VITALS: BMI 38.2
[2020-07-20] MEDS ORDERED: Enoxaparin Sodium 40 MG/0.4 ML SYRINGE SC SCH (17:10)
[2020-07-20] MEDS ORDERED: hydrOXYzine 25 MG TAB PO PRN (17:32)
[2020-07-20 17:47] LABS: SARS-CoV-2 PCR by NAA Not Detected (NotDetected)
[2020-07-20 17:49] LABS: Lactic Acid 2.2 mmol/L (0.5-2.2)
[2020-07-20] MEDS: Nicotine 14 MG PATCH TD SCH (18:18)
[2020-07-20] MEDS: Mometasone 200 MCG/Formoterol 5 MCG 120 PUFF INHALER INH SCH (18:31)
[2020-07-20] MEDS ORDERED: Albuterol 200 PUFF (6.7GM INHALER) INH SCH (19:00)
[2020-07-20] MEDS: Gabapentin 300 MG CAP PO SCH (20:58)
[2020-07-20] MEDS: Benzonatate 100 MG CAP PO SCH (20:58)
[2020-07-20] MEDS: Atorvastatin Calcium 40 MG TAB PO SCH (20:58)
[2020-07-20] MEDS: Amitriptyline HCl 25 MG TAB PO SCH (20:59)
[2020-07-20] MEDS: Insulin Glargine 52 UNITS in Pre-Filled Syringe 1 EACH SC SCH (20:59)
[2020-07-20] MEDS: clonazePAM 1 MG TAB PO SCH (20:59)
[2020-07-21] MEDS: Levothyroxine 175 MCG TAB PO SCH (05:45)
[2020-07-21 06:43] LABS: #Monocytes 0.5 thou/uL (0.11-0.59); %Basophils 0.3 % (0.0-1.0); %Eosinophils 0.1 % (0.0-10.0); %Lymphocytes 19.3 % (21.0-51.0); %Monocytes 4.5 % (0.0-10.0); %Neutrophils 75.8 % (42.0-75.0); Mean Corpuscular HGB CONC 32.7 g/dL (32.0-36.0); Mean Corpuscular Hemoglobin 28.4 pg (27.0-31.0); Mean Corpuscular Volume 86.8 fL (78.0-98.0); Mean Platelet Volume 7.5 fL (7.4-10.4); Platelet Count 309 thou/uL (130-400); RBC Distribution Width 14.2 % (11.5-14.5); Red Blood Cell (RBC) Count 4.92 mill/uL (4.20-5.40); White Blood Cell (WBC) Count 10.5 thou/uL (4.8-10.8)
--- NOTE | 2020-07-21 06:49 | PDOC.FM ---
- Subjective Subjective: No acute overnight events. Feeling somewhat improves. Feels she may be able to go home today as she can continue same regimen she is currently on at home. - Objective Vital Signs & Weight: Vital Signs (12 hours) Temp Pulse Resp BP BP Pulse Ox 07/21/20 05:51 97.5 F L 80 20 130/84 07/21/20 00:00 98.4 F 80 20 119/75 94 L 07/20/20 20:34 98.2 F 82 20 136/82 93 L 07/20/20 19:18 96 Weight Weight 93.576 kg Result Diagrams: 07/21/20 06:24 07/20/20 12:47 Phys Exam - Physical Examination Constitutional: NAD HEENT: sclera anicteric Neck: supple wheezing bilaterally, few rales bilateral bases Cardiovascular: RRR systolic murmur Gastrointestinal: soft, non-tender Musculoskeletal: no edema, pulses present Neurological: non-focal, moves all 4 limbs Psychiatric: A&O x 3 Skin: cap refill <2 seconds Dx/Plan - Plan Plan: COPD exacerbation, failed outpatient therapy Chronic respiratory failure, O2 Dependent (4L BNC) RO on Bipap at night CXR no acute findings, diffusely wheezing on exam, on home 4L NC on admission. s/p levaquin, 1L NS in ED. Failed tx with 5 days prednisone/azithromycin outpatient. COVID negative. - Steroids, Duonebs CARLOS q4h, tessalon perles PRN, guaifenesin - Keep O2 sats >88% - continue home Spiriva and symbicort - continue Bipap at night SIRS, resolved Lactic acidosis, resolved - Pt tachypneic, tachycardic, elevated WBC (no left shift), with lactic acidosis on admission - Given levaquin and 1 NS in ED - VS and LA now improved Hypomagnesemia - monitor and replace as necessary Chronic pancreatitis -unsure if creon available while in hospital, will look into this DM2 -aggressive SSI, continue home insulin -Hypoglycemia protocol -ACHS accuchecks HLD, HFpEF, AV Stenosis Cardiac stent x2 -Last known echo 2014, showed , normal EF, suggestive of diastolic dysfunction -continue home medications - reportedly due for echo with her tanning drum operator Dr. Plata later this week, rescheduled due to hospitalization - given crackles on exam would consider echo here although BNP wnl and no edema Tobacco abuse -Nicotine patch ordered -director of counseling cessation Hypothyroid -continue home medications GERD -continue protonix Hepatic steatosis -aware HTN -continue home medications Weaning Benzodiazepines -Continue 0.5 mg QAM and 1 mg QPM Anxiety Osteoarthritis Fibromyalgia Sciatica -Aware Diet: CC DVT ppx: lovenox GI ppx: protonix PCP: DORI Aquino Code: Full Dispo: Admitted to medical; consider echo vs DC home with outpatient f/u. Addendum - Attending - Attending Attestation Date/Time: 07/21/20 1201 I personally evaluated the patient and discussed the management with Dr. Rehman. I agree with the History, Examination, Assessment and Plan documented above with any addition or exceptions noted below. Patient here for suspected COPD exacerbation that did not improve with outpatient therapy. She is feeling better this morning, currently on her baseline O2 requirement. Continue steroids, neb treatments. Echo pending. She is feeling well and hopes to return home, and so if she is doing well this afternoon we may consider discharge with prolonged steroid taper. No indication for abx at this time given her CXR and PCT values.
[2020-07-21 06:56] LABS: Phosphorus 4.1 mg/dL (2.3-4.7)
[2020-07-21] MEDS: Mometasone 200 MCG/Formoterol 5 MCG 120 PUFF INHALER INH SCH ×2 (07:45→18:24)
[2020-07-21] MEDS: Furosemide 20 MG TAB PO SCH (08:22)
[2020-07-21] MEDS: clonazePAM 0.5 MG TAB PO SCH (08:23)
[2020-07-21] MEDS: Benzonatate 100 MG CAP PO SCH ×2 (08:23→16:07)
[2020-07-21] MEDS: metFORMIN 500 MG TAB PO SCH ×2 (08:23→18:06)
[2020-07-21] MEDS: Aspirin 81 mg Enteric Coated Tablet PO SCH (08:24)
[2020-07-21] MEDS: Empagliflozin 10 MG TAB PO SCH (08:24)
[2020-07-21] MEDS: Gabapentin 300 MG CAP PO SCH ×2 (08:24→21:01)
[2020-07-21] MEDS: DULoxetine 60 MG CAP PO SCH (08:24)
[2020-07-21] MEDS: Dexamethasone 10 MG/ML VIAL SLOW IVP SCH (08:25)
[2020-07-21] MEDS: Pantoprazole 40 MG GRANULES PACKET PO SCH (08:25)
[2020-07-21] MEDS: Enoxaparin Sodium 40 MG/0.4 ML SYRINGE SC SCH (08:25)
[2020-07-21] MEDS: Insulin Glargine 60 UNITS in Pre-Filled Syringe 1 EACH SC SCH (08:25)
[2020-07-21] MEDS ORDERED: Non-Formulary Item 1 EACH (Tiotropium Bromide [Spiriva] 18 MCG Cap.W.Dev) INH SCH (09:00)
[2020-07-21 13:47] LABS: Calcium 9.5 mg/dL (7.8-10.44); Chloride 95 mmol/L (98-107); Glucose 110 mg/dL (70-105); Sodium 139 mmol/L (136-145)
[2020-07-21 13:49] LABS: Anion Gap 21 mmol/L (10-20); Carbon Dioxide 27 mmol/L (22-29)
[2020-07-21 13:51] LABS: Calc. Creatinine Clearance 104 mL/min (70-130)
[2020-07-21 13:52] LABS: BUN (Urea Nitrogen) 20 mg/dL (9.8-20.1)
[2020-07-21 13:53] LABS: Magnesium 2.2 mg/dL (1.6-2.6)
[2020-07-21] MEDS: Nicotine 14 MG PATCH TD SCH (16:07)
[2020-07-21] MEDS ORDERED: FLU VACC QS2020-21(6MOS UP)/PF 60 MCG/0.5 ML SYRINGE IM ONE (19:00)
[2020-07-21] MEDS: Atorvastatin Calcium 40 MG TAB PO SCH (21:00)
[2020-07-21] MEDS: Amitriptyline HCl 25 MG TAB PO SCH (21:04)
[2020-07-21] MEDS: clonazePAM 1 MG TAB PO SCH (21:04)
[2020-07-21] MEDS: Insulin Glargine 52 UNITS in Pre-Filled Syringe 1 EACH SC SCH (21:06)
--- NOTE | 2020-07-22 06:44 | PDOC.FM ---
- Subjective Subjective: No acute overnight events. Feeling improved this AM with respect to fatigue, SOB. Stable on her home 4LNC. Ready to go home. - Objective Vital Signs & Weight: Vital Signs (12 hours) Temp Pulse Resp BP BP Pulse Ox 07/22/20 04:00 98.0 F 79 20 97 07/22/20 00:00 98.0 F 79 20 97 07/21/20 20:00 98.0 F 79 20 100/60 100/60 97 Weight Weight 93.576 kg Result Diagrams: 07/21/20 06:24 07/22/20 07:10 Phys Exam - Physical Examination Constitutional: NAD HEENT: moist MMs Neck: supple Respiratory: no rales occasional wheezes, improved Cardiovascular: RRR systolic murmur Gastrointestinal: soft, non-tender Musculoskeletal: no edema Neurological: moves all 4 limbs Psychiatric: normal affect, A&O x 3 Skin: cap refill <2 seconds Dx/Plan - Plan Plan: COPD exacerbation, failed outpatient therapy Chronic respiratory failure, O2 Dependent (4L BNC) RO on Bipap at night CXR no acute findings, diffusely wheezing on exam, on home 4L NC on admission. s/p levaquin, 1L NS in ED. Failed tx with 5 days prednisone/azithromycin outpatient. COVID negative. Symptoms improving with her home regimen. - monitor sats, goal 88-92% - continue home meds including nebs & inhalers - receiving PO steroids, plan to DC with prolonged steroid taper SIRS, resolved Lactic acidosis, resolved - Pt tachypneic, tachycardic, elevated WBC (no left shift), with lactic acidosis on admission - Given levaquin and 1 NS in ED - VS and LA now improved - procal negative, no indication for further abx Hypomagnesemia - monitor and replace as necessary Chronic pancreatitis -unsure if creon available while in hospital, will look into this DM2 -aggressive SSI, continue home insulin -Hypoglycemia protocol -ACHS accuchecks HLD, HFpEF, AV Stenosis Cardiac stent x2 -Last known echo 2014, showed , normal EF, suggestive of diastolic dysfunction -continue home medications - echo ordered, not yet taken; no further rales on exam, will defer echo to outpatient given she has f/u with her care consultant Dr. Plata next week Tobacco abuse -Nicotine patch ordered -associate counsel cessation Hypothyroid -continue home medications GERD -continue protonix Hepatic steatosis -aware HTN -continue home medications Weaning Benzodiazepines -Continue 0.5 mg QAM and 1 mg QPM Anxiety Osteoarthritis Fibromyalgia Sciatica -Aware Diet: CC DVT ppx: lovenox GI ppx: protonix PCP: DORI Aquino Code: Full Dispo: DC to home with close outpatient f/u. Addendum - Attending - Attending Attestation Date/Time: 07/22/20 5091 I personally evaluated the patient and discussed the management with Dr. Rehman. I agree with the History, Examination, Assessment and Plan documented above with any addition or exceptions noted below. Stable for discharge.
[2020-07-22] MEDS: Levothyroxine 175 MCG TAB PO SCH (06:52)
[2020-07-22 07:09] VITALS: TEMP 98.2
[2020-07-22] MEDS: Mometasone 200 MCG/Formoterol 5 MCG 120 PUFF INHALER INH SCH (07:27)
[2020-07-22 07:54] LABS: Anion Gap 16 mmol/L (10-20); BUN (Urea Nitrogen) 24 mg/dL (9.8-20.1); Calc. Creatinine Clearance 90 mL/min (70-130); Calcium 9.7 mg/dL (7.8-10.44); Carbon Dioxide 35 mmol/L (22-29); Chloride 94 mmol/L (98-107); Glucose 95 mg/dL (70-105); Potassium 3.7 mmol/L (3.5-5.1); Sodium 141 mmol/L (136-145)
[2020-07-22 07:55] LABS: Phosphorus 4.2 mg/dL (2.3-4.7)
[2020-07-22] MEDS: Benzonatate 100 MG CAP PO SCH ×2 (08:54→09:10)
[2020-07-22] MEDS: Gabapentin 300 MG CAP PO SCH (08:54)
[2020-07-22] MEDS: metFORMIN 500 MG TAB PO SCH (08:54)
[2020-07-22] MEDS: Pantoprazole 40 MG GRANULES PACKET PO SCH (08:55)
[2020-07-22] MEDS: DULoxetine 60 MG CAP PO SCH (08:55)
[2020-07-22] MEDS: clonazePAM 0.5 MG TAB PO SCH (08:55)
[2020-07-22] MEDS: Dexamethasone 10 MG/ML VIAL SLOW IVP SCH (08:55)
[2020-07-22] MEDS: Aspirin 81 mg Enteric Coated Tablet PO SCH (08:55)
[2020-07-22] MEDS: Enoxaparin Sodium 40 MG/0.4 ML SYRINGE SC SCH (08:56)
[2020-07-22] MEDS: Furosemide 20 MG TAB PO SCH (08:56)
[2020-07-22] MEDS: Insulin Glargine 60 UNITS in Pre-Filled Syringe 1 EACH SC SCH (08:57)
[2020-07-22] MEDS: Empagliflozin 10 MG TAB PO SCH (09:06)
[2020-07-22] MEDS ORDERED: Pancrelipase DR 12,000 1 CAP PO SCH (12:00)
[2020-07-22 12:13] VITALS: BP 110/68
--- NOTE | 2020-07-23 12:22 | DIS ---
DATE OF ADMISSION: 07/20/2020 DATE OF DISCHARGE: 07/22/2020 ADMITTING ATTENDING: Norm Cai MD DISCHARGE ATTENDING: Norm Cai MD RESIDENT: Deanna Rehman DO CONSULTS: None. PROCEDURES: None. PRIMARY DIAGNOSIS: Chronic obstructive pulmonary disease exacerbation. SECONDARY DIAGNOSES: Chronic respiratory failure, obstructive sleep apnea, systemic inflammatory response syndrome likely secondary to viral infection, lactic acidosis, hypomagnesemia, chronic pancreatitis, type 2 diabetes, hyperlipidemia, heart failure with preserved ejection fraction, aortic valve stenosis, tobacco abuse, hypothyroid, gastroesophageal reflux disease, cardiac stent x2, hepatic steatosis, hypertension, anxiety, osteoarthritis, fibromyalgia, and sciatica. DISCHARGE MEDICATIONS: 1. Losartan 25 mg p.o. daily. 2. Amitriptyline 25 mg p.o. at bedtime. 3. NovoLog FlexPen 6 units subcu t.i.d. with meals. 4. Levemir FlexPen 0 units subcu as directed. 5. Duloxetine 60 mg p.o. q.a.m. 6. Atorvastatin 80 mg p.o. at bedtime. 7. Ibuprofen 600 mg p.o. t.i.d. p.r.n. 8. Spiriva HandiHaler 18 mcg one puff inhaled daily p.r.n. 9. Lasix 40 mg p.o. q.a.m. 10. Clonazepam 1 mg p.o. b.i.d. 11. Gabapentin 900 mg p.o. b.i.d. 12. Nitroglycerin 0.4 mg sublingual q.5 minutes p.r.n. 13. Isosorbide mononitrate 30 mg p.o. q.a.m. 14. Aspirin 81 mg p.o. q.a.m. 15. Levothyroxine 175 mcg p.o. q.a.m. 16. DuoNeb 3 mL inhaled four times a day. 17. Metformin 1000 mg p.o. b.i.d. with meals. 18. Canagliflozin 100 mg p.o. daily. 19. Tylenol 650 mg p.o. q.4 hours p.r.n. 20. Protonix 40 mg p.o. daily. 21. Hydroxyzine 50 mg p.o. q.8 hours p.r.n. 22. Spiriva 1 puff inhaled daily. 23. Prednisone 10 mg tabs to be taken on a taper, 40 mg for five days, then 20 mg for five days, then 10 mg for five days. DISCONTINUED MEDICATIONS: None. HISTORY OF PRESENT ILLNESS/HOSPITAL COURSE: Ms. Gaines is a 60-year-old female with a past medical history of chronic pancreatitis, tobacco abuse, and multiple other medical problems including aortic stenosis and COPD, on 4 L of home oxygen, who presented with a 2-week history of productive cough, rhinorrhea, exertional shortness of breath, chest pain from coughing, and sore throat from coughing. She was seen in our clinic one week prior, at which time, she had a negative COVID test and was given a five-day course of 40 mg prednisone as well as azithromycin, but this did not improve her symptoms. She also reports taking her Symbicort, Spiriva, and DuoNeb at home. No systemic symptoms such as fever, chills, nausea, vomiting, diarrhea, or constipation, and denies any sick contacts. She was admitted for failure of outpatient therapy for the COPD exacerbation, although on admission, she remained on her home 4 L nasal cannula. In the ER, she was given Levaquin, Decadron, 2 g of mag, and 1 L of fluids. On admission, she was started on steroids, scheduled DuoNeb, Tessalon Perles, guaifenesin, and both her home medications including Spiriva and Symbicort. Instructed to continue her BiPAP at night. Procalcitonin was negative and thus antibiotics were discontinued. By the next morning, she was feeling somewhat improved, although she was noted to have rales on exam. An echo was ordered for further evaluation of this, although was unable to be performed on the same day. By the following morning, the patient was feeling much improved and no longer had rales on exam. She was discharged home without performing echocardiogram given that she had followup with her real time trader, Dr. Plata in the next week, specifically to have an echo performed. Given her failure of the short course of steroids for the COPD exacerbation, she was discharged home on a prolonged taper as noted above and scheduled for close followup in the clinic. DISPOSITION: Stable. DISCHARGE INSTRUCTIONS: 1. Location: Home. 2. Diet: Carb consistent. 3. Activity: As tolerated. 4. Followup: With her PCP within one week and with Dr. Plata as scheduled next week. Job ID: [id number]
== END 2020-07-22 12:28 | disposition home or self-care (01) | DRG 191 ==
LOC: ERS 12:16 → T4-A 14:13
PROVIDERS: ADMIT Student in an Organized Health Care Education/Training Program; ATTEND Student in an Organized Health Care Education/Training Program
DX: J44.1 Chronic obstructive pulmonary disease with (acute) exacerbation (principal); K86.1 Other chronic pancreatitis; I50.32 Chronic diastolic (congestive) heart failure; J96.10 Chronic respiratory failure, unspecified whether with hypoxia or hypercapnia; E87.2 Acidosis; R65.10 Systemic inflammatory response syndrome (SIRS) of non-infectious origin without acute organ dysfunction; Z20.822 Contact with and (suspected) exposure to COVID-19; E11.9 Type 2 diabetes mellitus without complications; E78.5 Hyperlipidemia, unspecified; E78.00 Pure hypercholesterolemia, unspecified; F41.9 Anxiety disorder, unspecified; F32.9 Major depressive disorder, single episode, unspecified; E03.9 Hypothyroidism, unspecified; F17.210 Nicotine dependence, cigarettes, uncomplicated; I11.0 Hypertensive heart disease with heart failure; I35.0 Nonrheumatic aortic (valve) stenosis; M19.90 Unspecified osteoarthritis, unspecified site; G47.33 Obstructive sleep apnea (adult) (pediatric); E83.42 Hypomagnesemia; K76.0 Fatty (change of) liver, not elsewhere classified; M79.7 Fibromyalgia; Z99.81 Dependence on supplemental oxygen; Z90.49 Acquired absence of other specified parts of digestive tract; Z90.710 Acquired absence of both cervix and uterus; Z98.51 Tubal ligation status; Z88.5 Allergy status to narcotic agent; Z88.6 Allergy status to analgesic agent; Z88.1 Allergy status to other antibiotic agents; Z79.4 Long term (current) use of insulin; Z79.890 Hormone replacement therapy
CPT/HCPCS: 36415; 36416; 71045; 80048; 80053; 82550; 83605; 83690; 83735; 83880; 84100; 84145; 84484; 85025; 85379; 87040; 87635; 93005; 94640; J1100; J1650; J1815; J1956; J3475; J7620; U0003; U0005

== ENCOUNTER 2020-11-13 14:37 | Outpatient (CLI) | payer OTHER | END 2020-11-13 14:38 | disposition home or self-care (01) | LOC: BICCT 14:37 | PROVIDERS: ATTEND Student in an Organized Health Care Education/Training Program | DX: R59.0 Localized enlarged lymph nodes (principal); H53.2 Diplopia | CPT/HCPCS: 70450; 71250 ==

== ENCOUNTER 2020-12-08 11:43 | Emergency (ER) | payer OTHER | END 2020-12-08 14:19 | disposition home or self-care (01) | LOC: ERS 11:43 | DX: S16.1XXA Strain of muscle, fascia and tendon at neck level, initial encounter (principal); S29.012A Strain of muscle and tendon of back wall of thorax, initial encounter; S00.83XA Contusion of other part of head, initial encounter; S00.33XA Contusion of nose, initial encounter; E11.9 Type 2 diabetes mellitus without complications; E78.00 Pure hypercholesterolemia, unspecified; E78.5 Hyperlipidemia, unspecified; E03.9 Hypothyroidism, unspecified; I50.9 Heart failure, unspecified; I25.10 Atherosclerotic heart disease of native coronary artery without angina pectoris; I25.2 Old myocardial infarction; M79.7 Fibromyalgia; M19.90 Unspecified osteoarthritis, unspecified site; J44.9 Chronic obstructive pulmonary disease, unspecified; F17.210 Nicotine dependence, cigarettes, uncomplicated; W19.XXXA Unspecified fall, initial encounter | CPT/HCPCS: 70486; 72125; 72128; 93005; 96374; J1885 ==

== ENCOUNTER 2021-04-06 12:01 | Emergency (ER) | payer OTHER | END 2021-04-06 14:04 | disposition home or self-care (01) | LOC: ERS 12:01 | DX: Z20.822 Contact with and (suspected) exposure to COVID-19 (principal); I25.2 Old myocardial infarction; E11.9 Type 2 diabetes mellitus without complications; E03.9 Hypothyroidism, unspecified; E78.5 Hyperlipidemia, unspecified; E78.00 Pure hypercholesterolemia, unspecified; J44.9 Chronic obstructive pulmonary disease, unspecified; G47.30 Sleep apnea, unspecified; F17.210 Nicotine dependence, cigarettes, uncomplicated; Z87.19 Personal history of other diseases of the digestive system | CPT/HCPCS: 99283 ==

== ENCOUNTER 2021-04-22 08:58 | Emergency (ER) | payer OTHER ==
[2021-04-22 12:01] LABS: Bilirubin Negative (Negative); Blood, Urine Trace (Negative); Clarity Turbid (Clear); Glucose, Urine (Dipstick) >=1000 mg/dL (Negative); Ketone, Urine Negative (Negative); Leukocyte 500 Leu/uL (Negative); Nitrite 2+ (Negative); Protein, Urine (Dipstick) 10 mg/dL (Neg-Trace); Specific Gravity, Urine 1.011 (1.002-1.036); Squamous Epithelial 0-3 HPF (0-3); WBC/HPF Greater than 50 HPF (0-3); pH, Urine 6.5 (5.0-9.0)
[2021-04-22 12:09] LABS: Bacteria/HPF 3+ HPF (None Seen)
== END 2021-04-22 15:20 | disposition home or self-care (01) ==
LOC: ERS 08:58
DX: N39.0 Urinary tract infection, site not specified (principal); D72.829 Elevated white blood cell count, unspecified; I25.10 Atherosclerotic heart disease of native coronary artery without angina pectoris; I50.9 Heart failure, unspecified; E11.9 Type 2 diabetes mellitus without complications; E03.9 Hypothyroidism, unspecified; I25.2 Old myocardial infarction; E78.5 Hyperlipidemia, unspecified; E78.00 Pure hypercholesterolemia, unspecified; M19.90 Unspecified osteoarthritis, unspecified site; J44.9 Chronic obstructive pulmonary disease, unspecified; M79.7 Fibromyalgia; F17.210 Nicotine dependence, cigarettes, uncomplicated; Z87.19 Personal history of other diseases of the digestive system; Z95.5 Presence of coronary angioplasty implant and graft
CPT/HCPCS: 81003; 81015; 87077; 87086; 87186; 99283

== ENCOUNTER 2021-06-09 14:12 | Emergency (ER) | payer OTHER ==
[2021-06-09] MEDS ORDERED: Morphine 4 MG/ML VIAL ONE (15:43)
[2021-06-09] MEDS ORDERED: Promethazine HCl 25 MG/ML VIAL ONE (15:43)
== END 2021-06-09 18:12 | disposition home or self-care (01) ==
LOC: ERS 14:12
DX: S60.312A Abrasion of left thumb, initial encounter (principal); M79.602 Pain in left arm; M25.562 Pain in left knee; R07.81 Pleurodynia; W18.39XA Other fall on same level, initial encounter; I25.10 Atherosclerotic heart disease of native coronary artery without angina pectoris; I50.9 Heart failure, unspecified; I25.2 Old myocardial infarction; E11.9 Type 2 diabetes mellitus without complications; E03.9 Hypothyroidism, unspecified; E78.5 Hyperlipidemia, unspecified; E78.00 Pure hypercholesterolemia, unspecified; M19.90 Unspecified osteoarthritis, unspecified site; J44.9 Chronic obstructive pulmonary disease, unspecified; F17.210 Nicotine dependence, cigarettes, uncomplicated; Z79.84 Long term (current) use of oral hypoglycemic drugs; Z79.899 Other long term (current) drug therapy
CPT/HCPCS: 70450; 71046; 72125; 74176; 96374; 96375; J2270; J2550

== ENCOUNTER 2022-05-16 16:04 | Inpatient (IN) | payer OTHER ==
[2022-05-16] MEDS ORDERED: Tranexamic Acid 1,000 MG/10 ML VIAL ONE (16:28)
[2022-05-16 16:33] LABS: #Eosinphils 0.2 thou/uL (0.0-0.7); #Lymphocytes 3.4 thou/uL (1.20-3.40); #Monocytes 1.2 thou/uL (0.11-0.59); #Neutrophils 13.8 thou/uL (1.40-6.50); %Basophils 0.2 % (0.0-1.0); %Lymphocytes 18.2 % (21.0-51.0); %Monocytes 6.3 % (0.0-10.0); %Neutrophils 74.2 % (42.0-75.0); Hemoglobin 10.9 g/dL (12.0-16.0); Mean Corpuscular HGB CONC 34.2 g/dL (32.0-36.0); Mean Corpuscular Hemoglobin 31.9 pg (27.0-31.0); Mean Corpuscular Volume 93.2 fl (78.0-98.0); Mean Platelet Volume 7.5 fL (7.4-10.4); Platelet Count 259 10x3/uL (130-400); RBC Distribution Width 15.1 % (11.5-14.5); Red Blood Cell (RBC) Count 3.42 mill/uL (4.20-5.40); White Blood Cell (WBC) Count 18.5 10x3/uL (4.8-10.8)
[2022-05-16 16:48] LABS: INR-International Normal Ratio 1.1; Prothrombin Time 14.3 sec (12.0-14.7)
[2022-05-16 16:53] LABS: ALT (SGPT) 14 U/L (8-55); AST (SGOT) 11 U/L (5-34); Albumin 3.1 g/dL (3.4-4.8); Alkaline Phosphatase 61 U/L (40-110); Anion Gap 16 mmol/L (10-20); BUN (Urea Nitrogen) 18 mg/dL (9.8-20.1); Bilirubin, Total 0.5 mg/dL (0.2-1.2); Calc. Creatinine Clearance 0 mL/min (70-130); Calcium 8.4 mg/dL (7.8-10.44); Carbon Dioxide 26 mmol/L (23-31); Chloride 98 mmol/L (98-107); Estimated GFR 66; Globulin 2.9 g/dL (2.4-3.5); Glucose 170 mg/dL (80-115); Potassium 3.8 mmol/L (3.5-5.1); Sodium 136 mmol/L (136-145)
[2022-05-16] MEDS ORDERED: Piperacillin/Tazobactam 4.5 GM VIAL ONE (19:45)
[2022-05-16 20:41] LABS: SARS-CoV-2 NAA Rapid Test Not Detected (NotDetected)
[2022-05-16] MEDS ORDERED: NOREPINEPHRINE 8 MG/250 ML-D5W 250 ML ONE (21:09)
[2022-05-16] MEDS ORDERED: GoLYTELY 4,000 ml Bottle PO SCH (21:30)
[2022-05-16] MEDS ORDERED: Lactated Ringer's 1,000 ML IV SCH (23:15)
[2022-05-17 00:32] LABS: #Basophils 0.1 thou/uL (0.0-0.2); #Eosinphils 0.2 thou/uL (0.0-0.7); #Lymphocytes 3.8 thou/uL (1.20-3.40); #Neutrophils 10.4 thou/uL (1.40-6.50); %Basophils 0.6 % (0.0-1.0); %Eosinophils 1.5 % (0.0-10.0); %Lymphocytes 24.2 % (21.0-51.0); %Monocytes 6.2 % (0.0-10.0); %Neutrophils 67.5 % (42.0-75.0); Hemoglobin 9.8 g/dL (12.0-16.0); Mean Corpuscular HGB CONC 34.4 g/dL (32.0-36.0); Mean Corpuscular Hemoglobin 32.3 pg (27.0-31.0); Mean Corpuscular Volume 93.9 fl (78.0-98.0); Mean Platelet Volume 7.3 fL (7.4-10.4); Platelet Count 197 10x3/uL (130-400); RBC Distribution Width 15.7 % (11.5-14.5); Red Blood Cell (RBC) Count 3.02 mill/uL (4.20-5.40); White Blood Cell (WBC) Count 15.5 10x3/uL (4.8-10.8)
[2022-05-17] MEDS ORDERED: Ondansetron ODT 4 MG TAB PO PRN (00:45)
[2022-05-17] MEDS ORDERED: Ondansetron PF 4 MG/2 ML Vial IVP PRN (00:45)
[2022-05-17] MEDS ORDERED: Acetaminophen 325 MG TAB PO PRN (00:45)
[2022-05-17 01:12] VITALS: BMI 36.6
[2022-05-17] MEDS ORDERED: Famotidine 20 MG TAB PO PRN (01:51)
[2022-05-17] MEDS ORDERED: Dextrose 50% Abboject 50 ML SYRINGE SLOW IVP PRN (01:55)
[2022-05-17] MEDS ORDERED: Dextrose 5% in Water 1,000 ML IV PRN (01:55)
[2022-05-17] MEDS ORDERED: hydrOXYzine 25 MG TAB PO PRN (02:03)
[2022-05-17] MEDS ORDERED: Albuterol Sulfate 2.5 mg/3 ml Neb NEB PRN (02:22)
[2022-05-17] MEDS ORDERED: Ipratropium Bromide 2.5 ml Neb NEB PRN (02:24)
[2022-05-17] MEDS ORDERED: NOREPINEPHRINE 8 MG/250 ML-D5W 250 ML IVPB SCH (04:30)
[2022-05-17] MEDS ORDERED: Levothyroxine 175 MCG TAB PO SCH (06:00)
[2022-05-17 07:13] LABS: #Basophils 0.1 thou/uL (0.0-0.2); #Eosinphils 0.2 thou/uL (0.0-0.7); #Lymphocytes 2.7 thou/uL (1.20-3.40); #Monocytes 0.8 thou/uL (0.11-0.59); #Neutrophils 11.2 thou/uL (1.40-6.50); %Basophils 0.5 % (0.0-1.0); %Eosinophils 1.2 % (0.0-10.0); %Lymphocytes 18.1 % (21.0-51.0); %Monocytes 5.5 % (0.0-10.0); %Neutrophils 74.8 % (42.0-75.0); Hemoglobin 11.3 g/dL (12.0-16.0); Mean Corpuscular HGB CONC 31.5 g/dL (32.0-36.0); Mean Corpuscular Volume 95.3 fl (78.0-98.0); Mean Platelet Volume 7.4 fL (7.4-10.4); Platelet Count 242 10x3/uL (130-400); Red Blood Cell (RBC) Count 3.76 mill/uL (4.20-5.40)
[2022-05-17 07:26] LABS: Anion Gap 13 mmol/L (10-20); BUN (Urea Nitrogen) 14 mg/dL (9.8-20.1); Calc. Creatinine Clearance 100 mL/min (70-130); Calcium 8.3 mg/dL (7.8-10.44); Carbon Dioxide 25 mmol/L (23-31); Chloride 104 mmol/L (98-107); Estimated GFR 78; Glucose 158 mg/dL (80-115); Sodium 138 mmol/L (136-145)
[2022-05-17] MEDS: HumaLOG 300 UNITS/3 ML VIAL SC SCH ×2 (08:00→13:18)
[2022-05-17] MEDS ORDERED: metFORMIN 500 MG TAB PO SCH (08:00)
[2022-05-17] MEDS ORDERED: Fluticasone Propionate Nasal Spray 16 gm Bottle NASAL SCH (09:00)
[2022-05-17] MEDS ORDERED: DULoxetine 60 MG CAP PO SCH (09:00)
[2022-05-17] MEDS ORDERED: Empagliflozin 10 MG TAB PO SCH (09:00)
[2022-05-17] MEDS ORDERED: Insulin Glargine 30 UNITS/0.3 ML VIAL SC SCH ×2 (09:00→21:00)
[2022-05-17] MEDS ORDERED: Lactated Ringer's 1,000 ML IV SCH (09:15)
[2022-05-17] MEDS ORDERED: Nitroglycerin 0.4 MG TAB (25 Tab Bottle) SL PRN (09:18)
[2022-05-17 14:55] VITALS: TEMP 97.3
[2022-05-17 17:30] VITALS: BP 115/64
[2022-05-17] MEDS ORDERED: Atorvastatin Calcium 40 MG TAB PO SCH (21:00)
[2022-05-17] MEDS ORDERED: Amitriptyline HCl 25 MG TAB PO SCH (21:00)
[2022-05-17] MEDS ORDERED: Gabapentin 400 MG CAP PO SCH (21:00)
[2022-05-17] MEDS ORDERED: Transdermal Patch Removal TOP SCH (22:00)
[2022-05-18] MEDS ORDERED: Gabapentin 300 MG CAP PO SCH (09:00)
[2022-05-18] MEDS ORDERED: Lidocaine 5% Patch TD SCH (10:00)
== END 2022-05-17 17:33 | disposition home or self-care (01) | DRG 378 ==
LOC: ERS 16:04 → ERHOLD 20:21 → T4-A 05-17 12:00
PROVIDERS: ADMIT Family Medicine; ATTEND Family Medicine
PROC: 3E033XZ Introduction of Vasopressor into Peripheral Vein, Percutaneous Approach (ICD-10-PCS; principal; 2022-05-16)
DX: K57.31 Diverticulosis of large intestine without perforation or abscess with bleeding (principal); D62 Acute posthemorrhagic anemia; E87.20 Acidosis, unspecified; I50.32 Chronic diastolic (congestive) heart failure; K86.1 Other chronic pancreatitis; J96.10 Chronic respiratory failure, unspecified whether with hypoxia or hypercapnia; K92.1 Melena; I95.89 Other hypotension; G47.33 Obstructive sleep apnea (adult) (pediatric); I25.10 Atherosclerotic heart disease of native coronary artery without angina pectoris; F17.210 Nicotine dependence, cigarettes, uncomplicated; F32.A Depression, unspecified; F41.9 Anxiety disorder, unspecified; F43.10 Post-traumatic stress disorder, unspecified; M19.90 Unspecified osteoarthritis, unspecified site; G25.3 Myoclonus; N39.46 Mixed incontinence; M79.7 Fibromyalgia; G47.00 Insomnia, unspecified; F12.10 Cannabis abuse, uncomplicated; E66.9 Obesity, unspecified; M17.0 Bilateral primary osteoarthritis of knee; E55.9 Vitamin D deficiency, unspecified; E03.9 Hypothyroidism, unspecified; R91.8 Other nonspecific abnormal finding of lung field; J44.9 Chronic obstructive pulmonary disease, unspecified; I11.0 Hypertensive heart disease with heart failure; Z95.2 Presence of prosthetic heart valve; Z90.49 Acquired absence of other specified parts of digestive tract; Z68.36 Body mass index [BMI] 36.0-36.9, adult; Z86.010 Personal history of colon polyps; Z99.81 Dependence on supplemental oxygen; Z88.1 Allergy status to other antibiotic agents; Z88.5 Allergy status to narcotic agent; Z88.8 Allergy status to other drugs, medicaments and biological substances; Z91.018 Allergy to other foods; Z79.899 Other long term (current) drug therapy; Z79.84 Long term (current) use of oral hypoglycemic drugs; Z79.4 Long term (current) use of insulin; Z79.02 Long term (current) use of antithrombotics/antiplatelets; Z79.890 Hormone replacement therapy; Z90.89 Acquired absence of other organs; Z90.710 Acquired absence of both cervix and uterus; Z98.42 Cataract extraction status, left eye; Z98.41 Cataract extraction status, right eye
CPT/HCPCS: 36415; 36416; 36430; 71045; 74177; 80048; 80053; 83605; 84145; 85025; 85610; 85730; 86850; 86900; 86901; 93005; 94640; J1815; J2543; J7120; J7611; J7620; P9016; Q9967

== ENCOUNTER 2022-05-20 08:43 | Inpatient (IN) | payer OTHER ==
[2022-05-20 09:27] LABS: #Lymphocytes 0.7 thou/uL (1.20-3.40); #Monocytes 0.4 thou/uL (0.11-0.59); #Neutrophils 11.4 thou/uL (1.40-6.50); %Basophils 0.2 % (0.0-1.0); %Eosinophils 0.3 % (0.0-10.0); %Lymphocytes 5.7 % (21.0-51.0); %Monocytes 3.5 % (0.0-10.0); %Neutrophils 90.3 % (42.0-75.0); Hemoglobin 10.3 g/dL (12.0-16.0); Mean Corpuscular HGB CONC 33.2 g/dL (32.0-36.0); Mean Corpuscular Hemoglobin 31.2 pg (27.0-31.0); Mean Platelet Volume 7.4 fL (7.4-10.4); Platelet Count 232 10x3/uL (130-400); White Blood Cell (WBC) Count 12.6 10x3/uL (4.8-10.8)
[2022-05-20 09:47] LABS: Actual Bicarbonate (HCO3v) 24 mEq/L (22-28); Analyzer IN Cardio ER; Base Excess 0.2 mEq/L (-2.0 to +3.0); Calcium, Ionized (venous) 0.98 mmol/L (1.16-1.32); Chloride (VBG) 99 mmol/L (98-106); Hemoglobin (Hb) 10.3 g/dL (11.7-16.0); Potassium (VBG) 3.59 mmol/L (3.70-5.30); Sodium 133.7 mmol/L (133-146); pH (venous) 7.43 (7.32-7.43)
[2022-05-20] MEDS ORDERED: Cefepime 2 GM VIAL ONE (09:53)
[2022-05-20] MEDS ORDERED: methylPREDNISolone Sod Succ/PF 125 MG/2 ML VIAL ONE (09:53)
[2022-05-20 09:54] LABS: ALT (SGPT) 45 U/L (8-55); AST (SGOT) 38 U/L (5-34); Albumin 3.6 g/dL (3.4-4.8); Alkaline Phosphatase 68 U/L (40-110); Anion Gap 18 mmol/L (10-20); BUN (Urea Nitrogen) 8 mg/dL (9.8-20.1); Bilirubin, Total 0.4 mg/dL (0.2-1.2); Calc. Creatinine Clearance 0 mL/min (70-130); Carbon Dioxide 25 mmol/L (23-31); Chloride 98 mmol/L (98-107); Estimated GFR 83; Globulin 3.7 g/dL (2.4-3.5); Glucose 116 mg/dL (80-115); Potassium 3.6 mmol/L (3.5-5.1); Protein, Total 7.3 g/dL (5.8-8.1); Sodium 137 mmol/L (136-145)
[2022-05-20] MEDS ORDERED: Ipratropium Bromide 2.5 ml Neb ONE (09:54)
[2022-05-20] MEDS ORDERED: Albuterol Sulfate 2.5 mg/3 ml Neb ONE (09:54)
[2022-05-20 10:02] LABS: Magnesium 1.7 mg/dL (1.6-2.6)
[2022-05-20 10:53] LABS: SARS-CoV-2 NAA Rapid Test Not Detected (NotDetected)
[2022-05-20] MEDS ORDERED: Clopidogrel Bisulfate 300 MG TAB ONE (11:46)
[2022-05-20] MEDS ORDERED: Oseltamivir 75 MG CAP PO SCH (12:30)
[2022-05-20 12:42] LABS: Lactic Acid 1.8 mmol/L (0.5-2.2)
[2022-05-20] MEDS ORDERED: LORazepam 2 MG/ML SYR.(CARPUJECT) IVP SCH (13:03)
[2022-05-20] MEDS ORDERED: Acetaminophen 325 MG TAB PO PRN (13:18)
[2022-05-20] MEDS ORDERED: hydrOXYzine 25 MG TAB PO PRN (13:29)
[2022-05-20] MEDS ORDERED: Nitroglycerin 0.4 MG TAB (25 Tab Bottle) SL PRN (13:35)
[2022-05-20] MEDS ORDERED: Famotidine 20 MG TAB PO PRN (13:35)
[2022-05-20] MEDS ORDERED: Dextrose 50% Abboject 50 ML SYRINGE SLOW IVP PRN (13:44)
[2022-05-20] MEDS ORDERED: HumaLOG 300 UNITS/3 ML VIAL SC PRN (13:44)
[2022-05-20] MEDS ORDERED: Dextrose 5% in Water 1,000 ML IV PRN (13:44)
[2022-05-20 13:48] LABS: Troponin I 0.034 ng/mL (< 0.028)
[2022-05-20 14:04] LABS: Bilirubin Negative (Negative); Blood, Urine Trace (Negative); Clarity Clear (Clear); Glucose, Urine (Dipstick) Greater than 1000 mg/dL (Negative); Ketone, Urine Negative (Negative); Leukocyte 75 Leu/uL (Negative); Nitrite Negative (Negative); Protein, Urine (Dipstick) 30 mg/dL (Neg-Trace); RBC/HPF 0-3 HPF (0-3); Urobilinogen Normal mg/dL (Less than 2); WBC/HPF 0-3 HPF (0-3)
[2022-05-20 14:05] LABS: Bacteria/HPF 1+ HPF (None Seen)
[2022-05-20] MEDS ORDERED: Benzonatate 100 MG CAP PO PRN (14:05)
[2022-05-20 14:22] VITALS: BMI 37.5
[2022-05-20] MEDS ORDERED: Furosemide 40 MG/4 ML VIAL SLOW IVP SCH (15:30)
[2022-05-20] MEDS ORDERED: clonazePAM 0.5 MG TAB PO PRN (15:43)
[2022-05-20 15:50] LABS: Troponin I 0.037 ng/mL (< 0.028)
[2022-05-20] MEDS ORDERED: Albuterol Sulfate 2.5 mg/3 ml Neb NEB PRN (15:52)
[2022-05-20] MEDS ORDERED: Magnesium 2 GM/50 ML(in water) 1 GM in Premix Bag 1 BAG IVPB SCH (16:00)
[2022-05-20] MEDS ORDERED: VANCOMYCIN 1.75 GM/500 ML BAG 1.75 GM in Premix Bag 1 BAG IVPB SCH (16:15)
[2022-05-20] MEDS: HumaLOG 300 UNITS/3 ML VIAL SC SCH (17:52)
[2022-05-20] MEDS: Nicotine 14 MG PATCH TD SCH (17:52)
[2022-05-20] MEDS: metFORMIN 500 MG TAB PO SCH (17:53)
[2022-05-20] MEDS ORDERED: Mometasone Furoate 30 PUFF 220 MCG INH SCH (18:30)
[2022-05-20] MEDS: Amitriptyline HCl 25 MG TAB PO SCH (20:43)
[2022-05-20] MEDS: guaiFENesin ER 600 MG TAB PO SCH (20:43)
[2022-05-20] MEDS: DULoxetine 60 MG CAP PO SCH (20:43)
[2022-05-20] MEDS: Atorvastatin Calcium 40 MG TAB PO SCH (20:43)
[2022-05-20] MEDS: Lidocaine 5% Patch TD SCH (20:44)
[2022-05-20] MEDS: Gabapentin 300 MG CAP PO SCH (20:44)
[2022-05-20] MEDS: Insulin Glargine 30 UNITS/0.3 ML VIAL SC SCH (20:45)
[2022-05-20] MEDS ORDERED: Insulin Glargine 30 UNITS/0.3 ML VIAL SC SCH (21:00)
[2022-05-20] MEDS ORDERED: Vancomycin 1 GM in Premix Bag 1 BAG IVPB SCH (21:00)
[2022-05-20] MEDS: Mometasone/Formoterol 200/5 60 PUFF INH SCH (21:41)
[2022-05-20] MEDS: Cefepime 2 GM in Sodium Chloride 0.9% 100 ML IVPB SCH (22:12)
[2022-05-21] MEDS: Vancomycin HCl 750 MG in Sodium Chloride 0.9% 250 ML 250 ML IVPB SCH ×2 (04:29→17:51)
[2022-05-21] MEDS: Cefepime 2 GM in Sodium Chloride 0.9% 100 ML IVPB SCH ×3 (06:12→22:07)
[2022-05-21] MEDS: Transdermal Patch Removal LIDOCAINE TOP SCH (06:13)
[2022-05-21] MEDS: Levothyroxine 175 MCG TAB PO SCH (06:13)
[2022-05-21] MEDS: Mometasone/Formoterol 200/5 60 PUFF INH SCH ×2 (06:46→18:46)
[2022-05-21 06:49] LABS: Anion Gap 17 mmol/L (10-20); BUN (Urea Nitrogen) 11 mg/dL (9.8-20.1); Calc. Creatinine Clearance 113 mL/min (70-130); Calcium 8.3 mg/dL (7.8-10.44); Carbon Dioxide 18 mmol/L (23-31); Chloride 102 mmol/L (98-107); Estimated GFR 88; Glucose 119 mg/dL (80-115); Potassium 3.9 mmol/L (3.5-5.1); Sodium 133 mmol/L (136-145)
[2022-05-21 07:44] LABS: Hemoglobin 10.5 g/dL (12.0-16.0); Mean Corpuscular HGB CONC 32.7 g/dL (32.0-36.0); Mean Corpuscular Hemoglobin 31.8 pg (27.0-31.0); Mean Corpuscular Volume 97.4 fl (78.0-98.0); Mean Platelet Volume 7.6 fL (7.4-10.4); Platelet Count 188 10x3/uL (130-400); RBC Distribution Width 16.3 % (11.5-14.5); Red Blood Cell (RBC) Count 3.29 mill/uL (4.20-5.40); White Blood Cell (WBC) Count 9.4 10x3/uL (4.8-10.8)
[2022-05-21] MEDS ORDERED: hydrOXYzine 25 MG TAB PO SCH (08:00)
[2022-05-21] MEDS ORDERED: predniSONE 20 MG TAB PO SCH (08:00)
[2022-05-21] MEDS ORDERED: Lactated Ringer's 1,000 ML IV SCH (08:30)
[2022-05-21 08:31] LABS: Anisocytosis SLIGHT = 6-15 cells (100X) (0-5/hpf); Band 18 % (5-11); Lymphocytes 9 % (21-51); MDiff Complete? YES; Monocytes 3 % (0-10); Neutrophil 70 % (42-75)
[2022-05-21] MEDS: metFORMIN 500 MG TAB PO SCH ×2 (08:44→17:52)
[2022-05-21] MEDS: HumaLOG 300 UNITS/3 ML VIAL SC SCH ×3 (08:44→17:52)
[2022-05-21] MEDS: clonazePAM 0.5 MG TAB PO SCH (08:45)
[2022-05-21] MEDS: DULoxetine 60 MG CAP PO SCH ×2 (08:45→22:01)
[2022-05-21] MEDS: Clopidogrel Bisulfate 75 MG TAB PO SCH (08:45)
[2022-05-21] MEDS: Enoxaparin Sodium 40 MG/0.4 ML SYRINGE SC SCH (08:45)
[2022-05-21] MEDS: Empagliflozin 10 MG TAB PO SCH (08:45)
[2022-05-21] MEDS: Gabapentin 300 MG CAP PO SCH ×2 (08:46→21:59)
[2022-05-21] MEDS: guaiFENesin ER 600 MG TAB PO SCH ×2 (08:46→22:00)
[2022-05-21] MEDS: Furosemide 40 MG TAB PO SCH (08:46)
[2022-05-21] MEDS: Insulin Glargine 30 UNITS/0.3 ML VIAL SC SCH ×2 (08:46→22:00)
[2022-05-21 08:47] LABS: Actual Bicarbonate (HCO3a) 30.4 mEq/L (22-28); Base Excess (BEa) 5.1 mEq/L (-2.0 to +3.0); CO2 Tension 48.8 mmHg (35.0-45.0); Calcium, Ionized (arterial) 1.08 mmol/L (1.12-1.30); Carboxyhemoglobin (COHb) 0.6 gm% (0.0-3.0); Hemoglobin (Hb) 9.9 g/dL (12.0-16.0); Potassium - ABG Lab 3.66 mmol/L (3.70-5.30); Puncture Site RBA; pH, Arterial 7.41 (7.35-7.45)
[2022-05-21] MEDS: Oseltamivir 75 MG CAP PO SCH ×2 (08:47→21:59)
[2022-05-21] MEDS: Losartan 25 MG TAB PO SCH (08:47)
[2022-05-21] MEDS: Ferrous Sulfate 325 MG TAB PO SCH (08:54)
[2022-05-21] MEDS ORDERED: Furosemide 20 MG/2 ML VIAL SLOW IVP SCH (10:15)
[2022-05-21] MEDS: methylPREDNISolone Sod Succ 40 MG VIAL IVP SCH ×2 (13:31→17:52)
[2022-05-21] MEDS: Lidocaine 5% Patch TD SCH (17:51)
[2022-05-21] MEDS: Nicotine 14 MG PATCH TD SCH (17:51)
[2022-05-21] MEDS: Atorvastatin Calcium 40 MG TAB PO SCH (21:59)
[2022-05-21] MEDS: Amitriptyline HCl 25 MG TAB PO SCH (22:00)
[2022-05-22] MEDS: methylPREDNISolone Sod Succ 40 MG VIAL IVP SCH ×5 (00:57→23:37)
[2022-05-22 04:20] LABS: Vancomycin, Trough 11.1 ug/mL
[2022-05-22] MEDS ORDERED: Vancomycin 1 GM in Premix Bag 1 BAG IVPB SCH (06:00)
[2022-05-22] MEDS: Cefepime 2 GM in Sodium Chloride 0.9% 100 ML IVPB SCH ×3 (06:19→21:31)
[2022-05-22] MEDS: Levothyroxine 175 MCG TAB PO SCH (06:20)
[2022-05-22] MEDS: Transdermal Patch Removal LIDOCAINE TOP SCH (06:20)
[2022-05-22] MEDS: Mometasone/Formoterol 200/5 60 PUFF INH SCH ×2 (06:48→20:14)
[2022-05-22] MEDS: Vancomycin HCl 750 MG in Sodium Chloride 0.9% 250 ML 250 ML IVPB SCH (07:00)
[2022-05-22 07:17] LABS: #Monocytes 0.2 thou/uL (0.11-0.59); #Neutrophils 6.2 thou/uL (1.40-6.50); %Eosinophils 0.1 % (0.0-10.0); %Lymphocytes 13.4 % (21.0-51.0); %Monocytes 3.2 % (0.0-10.0); %Neutrophils 83.4 % (42.0-75.0); Hemoglobin 9.7 g/dL (12.0-16.0); Mean Corpuscular HGB CONC 32.8 g/dL (32.0-36.0); Mean Corpuscular Hemoglobin 31.2 pg (27.0-31.0); Mean Corpuscular Volume 94.8 fl (78.0-98.0); Mean Platelet Volume 7.4 fL (7.4-10.4); Platelet Count 242 10x3/uL (130-400); RBC Distribution Width 15.6 % (11.5-14.5); White Blood Cell (WBC) Count 7.4 10x3/uL (4.8-10.8)
[2022-05-22 07:38] LABS: ALT (SGPT) 37 U/L (8-55); AST (SGOT) 23 U/L (5-34); Albumin 3.4 g/dL (3.4-4.8); Alkaline Phosphatase 63 U/L (40-110); Anion Gap 15 mmol/L (10-20); BUN (Urea Nitrogen) 15 mg/dL (9.8-20.1); Bilirubin, Total 0.5 mg/dL (0.2-1.2); Calc. Creatinine Clearance 113 mL/min (70-130); Calcium 8.8 mg/dL (7.8-10.44); Carbon Dioxide 26 mmol/L (23-31); Chloride 100 mmol/L (98-107); Estimated GFR 88; Globulin 3.8 g/dL (2.4-3.5); Glucose 130 mg/dL (80-115); Protein, Total 7.2 g/dL (5.8-8.1); Sodium 137 mmol/L (136-145)
[2022-05-22] MEDS ORDERED: Furosemide 40 MG/4 ML VIAL SLOW IVP SCH (09:00)
[2022-05-22] MEDS ORDERED: Ipratropium Bromide 2.5 ml Neb NEB PRN (09:18)
[2022-05-22] MEDS: metFORMIN 500 MG TAB PO SCH ×2 (09:23→17:30)
[2022-05-22] MEDS: Clopidogrel Bisulfate 75 MG TAB PO SCH (09:24)
[2022-05-22] MEDS: DULoxetine 60 MG CAP PO SCH ×2 (09:24→21:21)
[2022-05-22] MEDS: clonazePAM 0.5 MG TAB PO SCH (09:24)
[2022-05-22] MEDS: Empagliflozin 10 MG TAB PO SCH (09:25)
[2022-05-22] MEDS: Gabapentin 300 MG CAP PO SCH ×2 (09:25→21:18)
[2022-05-22] MEDS: Enoxaparin Sodium 40 MG/0.4 ML SYRINGE SC SCH (09:25)
[2022-05-22] MEDS: guaiFENesin ER 600 MG TAB PO SCH ×2 (09:26→21:20)
[2022-05-22] MEDS: Oseltamivir 75 MG CAP PO SCH ×2 (09:26→21:21)
[2022-05-22] MEDS: Losartan 25 MG TAB PO SCH (09:26)
[2022-05-22] MEDS: Insulin Glargine 30 UNITS/0.3 ML VIAL SC SCH ×2 (09:26→21:21)
[2022-05-22] MEDS: HumaLOG 300 UNITS/3 ML VIAL SC SCH ×3 (09:37→17:30)
[2022-05-22] MEDS: Lidocaine 5% Patch TD SCH (17:30)
[2022-05-22] MEDS: Nicotine 14 MG PATCH TD SCH (17:30)
[2022-05-22] MEDS: Atorvastatin Calcium 40 MG TAB PO SCH (21:20)
[2022-05-22] MEDS: Amitriptyline HCl 25 MG TAB PO SCH (21:20)
[2022-05-22] MEDS ORDERED: Ipratropium Bromide 2.5 ml Neb ONE (22:43)
[2022-05-23] MEDS ORDERED: Ipratropium Bromide 2.5 ml Neb ONE ×2 (02:44→11:09)
[2022-05-23] MEDS: Transdermal Patch Removal LIDOCAINE TOP SCH (05:11)
[2022-05-23] MEDS: methylPREDNISolone Sod Succ 40 MG VIAL IVP SCH ×2 (05:11→12:26)
[2022-05-23] MEDS: Levothyroxine 175 MCG TAB PO SCH (05:11)
[2022-05-23] MEDS: Cefepime 2 GM in Sodium Chloride 0.9% 100 ML IVPB SCH (05:11)
[2022-05-23 06:13] LABS: #Lymphocytes 0.9 thou/uL (1.20-3.40); #Monocytes 0.4 thou/uL (0.11-0.59); #Neutrophils 8.8 thou/uL (1.40-6.50); %Basophils 0.2 % (0.0-1.0); %Eosinophils 0.1 % (0.0-10.0); %Monocytes 3.4 % (0.0-10.0); %Neutrophils 87.4 % (42.0-75.0); Hemoglobin 8.8 g/dL (12.0-16.0); Mean Corpuscular HGB CONC 32.5 g/dL (32.0-36.0); Mean Corpuscular Hemoglobin 30.5 pg (27.0-31.0); Mean Corpuscular Volume 93.9 fl (78.0-98.0); Mean Platelet Volume 7.6 fL (7.4-10.4); Platelet Count 252 10x3/uL (130-400); RBC Distribution Width 15.3 % (11.5-14.5); Red Blood Cell (RBC) Count 2.88 mill/uL (4.20-5.40); White Blood Cell (WBC) Count 10.1 10x3/uL (4.8-10.8)
[2022-05-23] MEDS: Mometasone/Formoterol 200/5 60 PUFF INH SCH (08:21)
[2022-05-23] MEDS: HumaLOG 300 UNITS/3 ML VIAL SC SCH ×2 (09:48→12:26)
[2022-05-23] MEDS: Ferrous Sulfate 325 MG TAB PO SCH (09:48)
[2022-05-23] MEDS: Enoxaparin Sodium 40 MG/0.4 ML SYRINGE SC SCH (09:48)
[2022-05-23] MEDS: Insulin Glargine 30 UNITS/0.3 ML VIAL SC SCH (09:48)
[2022-05-23] MEDS: Empagliflozin 10 MG TAB PO SCH (09:49)
[2022-05-23] MEDS: guaiFENesin ER 600 MG TAB PO SCH (09:49)
[2022-05-23] MEDS: metFORMIN 500 MG TAB PO SCH (09:49)
[2022-05-23] MEDS: Furosemide 40 MG TAB PO SCH (09:49)
[2022-05-23] MEDS: clonazePAM 0.5 MG TAB PO SCH (09:49)
[2022-05-23] MEDS: Gabapentin 300 MG CAP PO SCH (09:49)
[2022-05-23] MEDS: DULoxetine 60 MG CAP PO SCH (09:50)
[2022-05-23] MEDS: Clopidogrel Bisulfate 75 MG TAB PO SCH (09:50)
[2022-05-23] MEDS: Oseltamivir 75 MG CAP PO SCH (09:50)
[2022-05-23] MEDS: Losartan 25 MG TAB PO SCH (09:50)
[2022-05-23 13:18] VITALS: BP 116/71; TEMP 98.3
[2022-05-23] MEDS ORDERED: Albuterol Sulfate 2.5 mg/0.5 ml Neb ONE (14:08)
== END 2022-05-23 14:45 | disposition home or self-care (01) | DRG 871 ==
LOC: ERS 08:43 → IMCU/EMU 14:00 → SURG B 05-22 19:51
PROVIDERS: ADMIT Student in an Organized Health Care Education/Training Program; ATTEND Student in an Organized Health Care Education/Training Program
PROC: 3E03329 Introduction of Other Anti-infective into Peripheral Vein, Percutaneous Approach (ICD-10-PCS; principal; 2022-05-20)
PROC: 5A09357 Assistance with Respiratory Ventilation, Less than 24 Consecutive Hours, Continuous Positive Airway Pressure (ICD-10-PCS; 2022-05-20)
DX: A41.89 Other specified sepsis (principal); I50.33 Acute on chronic diastolic (congestive) heart failure; J96.21 Acute and chronic respiratory failure with hypoxia; J15.9 Unspecified bacterial pneumonia; J10.08 Influenza due to other identified influenza virus with other specified pneumonia; J44.1 Chronic obstructive pulmonary disease with (acute) exacerbation; K86.1 Other chronic pancreatitis; E87.20 Acidosis, unspecified; Y95 Nosocomial condition; R77.8 Other specified abnormalities of plasma proteins; E03.9 Hypothyroidism, unspecified; G47.33 Obstructive sleep apnea (adult) (pediatric); E11.9 Type 2 diabetes mellitus without complications; D50.0 Iron deficiency anemia secondary to blood loss (chronic); I25.10 Atherosclerotic heart disease of native coronary artery without angina pectoris; F17.210 Nicotine dependence, cigarettes, uncomplicated; F32.A Depression, unspecified; Z20.822 Contact with and (suspected) exposure to COVID-19; F41.9 Anxiety disorder, unspecified; F43.10 Post-traumatic stress disorder, unspecified; I11.0 Hypertensive heart disease with heart failure; M19.90 Unspecified osteoarthritis, unspecified site; G25.3 Myoclonus; N39.46 Mixed incontinence; M79.7 Fibromyalgia; E11.51 Type 2 diabetes mellitus with diabetic peripheral angiopathy without gangrene; G47.00 Insomnia, unspecified; F12.10 Cannabis abuse, uncomplicated; E66.01 Morbid (severe) obesity due to excess calories; E55.9 Vitamin D deficiency, unspecified; R91.8 Other nonspecific abnormal finding of lung field; Z79.01 Long term (current) use of anticoagulants; Z99.89 Dependence on other enabling machines and devices; Z95.2 Presence of prosthetic heart valve; Z68.37 Body mass index [BMI] 37.0-37.9, adult; Z99.81 Dependence on supplemental oxygen; Z88.1 Allergy status to other antibiotic agents; Z88.5 Allergy status to narcotic agent; Z88.8 Allergy status to other drugs, medicaments and biological substances; Z91.018 Allergy to other foods; Z79.899 Other long term (current) drug therapy; Z79.4 Long term (current) use of insulin; Z79.890 Hormone replacement therapy; Z79.51 Long term (current) use of inhaled steroids; Z79.02 Long term (current) use of antithrombotics/antiplatelets; Z79.52 Long term (current) use of systemic steroids; Z98.51 Tubal ligation status; Z90.710 Acquired absence of both cervix and uterus
CPT/HCPCS: 36415; 36416; 36600; 71045; 80048; 80053; 80202; 81003; 81015; 82553; 82805; 83605; 83735; 83880; 84145; 84439; 84443; 84484; 85025; 87040; 87086; 93005; 94760; 96365; 96366; 96375; J0692; J1650; J1815; J1940; J1956; J2920; J2930; J3370; J3370-JW; J3475; J3490; J7050; J7120; J7611; J7620

== ENCOUNTER 2022-09-07 10:33 | Outpatient (CLI) | payer OTHER ==
[2022-09-07] MEDS ORDERED: Iopamidol-370 76% 500 ML MDV (1 ML CHARGE) ONE (15:25)
== END 2022-09-07 10:34 | disposition home or self-care (01) ==
LOC: BICCT 10:33
PROVIDERS: ATTEND Physician Assistant
DX: M54.2 Cervicalgia (principal); J38.3 Other diseases of vocal cords; R59.1 Generalized enlarged lymph nodes
CPT/HCPCS: 70491; 82565

== ENCOUNTER 2023-05-03 12:55 | Outpatient (CLI) | payer OTHER | END 2023-05-03 12:56 | disposition home or self-care (01) | LOC: BICCT 12:55 | PROVIDERS: ATTEND Internal Medicine Critical Care Medicine | DX: R91.1 Solitary pulmonary nodule (principal); R91.8 Other nonspecific abnormal finding of lung field; R59.0 Localized enlarged lymph nodes | CPT/HCPCS: 71250 ==

== ENCOUNTER 2023-06-22 11:39 | Inpatient (IN) | payer OTHER ==
[2023-06-22] MEDS ORDERED: cefTRIAXone (ROCEPHIN) 1 GM VIAL ONE (12:19)
[2023-06-22] MEDS ORDERED: Acetaminophen 500 MG TAB ONE (12:19)
[2023-06-22] MEDS ORDERED: Sodium Chloride 0.9% 100 ML ONE (12:19)
[2023-06-22 12:45] LABS: #Monocytes 0.3 thou/uL (0.11-0.59); #Neutrophils 6.9 thou/uL (1.40-6.50); %Basophils 0.3 % (0.0-1.0); %Eosinophils 0.3 % (0.0-10.0); %Lymphocytes 5.5 % (21.0-51.0); %Monocytes 3.4 % (0.0-10.0); %Neutrophils 89.8 % (42.0-75.0); Hematocrit 39.9 % (36.0-47.0); Hemoglobin 12.9 g/dL (12.0-16.0); Mean Corpuscular HGB CONC 32.3 g/dL (32.0-36.0); Mean Corpuscular Hemoglobin 28.3 pg (27.0-31.0); Mean Corpuscular Volume 87.5 fl (78.0-98.0); Mean Platelet Volume 9.6 fL (7.4-10.4); Platelet Count 260 10x3/uL (130-400); RBC Distribution Width 15.9 % (11.5-14.5); Red Blood Cell (RBC) Count 4.56 mill/uL (4.20-5.40); White Blood Cell (WBC) Count 7.6 10x3/uL (4.8-10.8)
[2023-06-22 12:59] LABS: INR-International Normal Ratio 1.2; PTT 28.7 sec (22.9-36.1); Prothrombin Time 14.9 sec (12.0-14.7)
[2023-06-22 13:05] LABS: ALT (SGPT) 25 U/L (8-55); AST (SGOT) 25 U/L (5-34); Alkaline Phosphatase 96 U/L (40-110); Anion Gap 15 mmol/L (10-20); BUN (Urea Nitrogen) 13 mg/dL (9.8-20.1); Bilirubin, Total 0.5 mg/dL (0.2-1.2); Calc. Creatinine Clearance 0 mL/min (70-130); Calcium 9.2 mg/dL (7.8-10.44); Carbon Dioxide 27 mmol/L (23-31); Chloride 97 mmol/L (98-107); Estimated GFR 68; Globulin 4.7 g/dL (2.4-3.5); Glucose 109 mg/dL (80-115); Potassium 4.1 mmol/L (3.5-5.1); Protein, Total 8.7 g/dL (5.8-8.1); Sodium 135 mmol/L (136-145)
[2023-06-22] MEDS ORDERED: Furosemide 40 MG (4 mL) VIAL ONE (13:50)
[2023-06-22 14:33] LABS: Bacteria/HPF None Seen HPF (None Seen); Bilirubin Negative (Negative); Blood, Urine Negative (Negative); CAUTI Indications for Culture Pelvic or flank pain; Clarity Clear (Clear); Glucose, Urine (Dipstick) Greater than 1000 mg/dL (Negative); Ketone, Urine Negative (Negative); Leukocyte Negative Leu/uL (Negative); Nitrite Negative (Negative); Protein, Urine (Dipstick) 10 mg/dL (Neg-Trace); RBC/HPF 0-3 HPF (0-3); Specific Gravity, Urine 1.017 (1.002-1.036); Squamous Epithelial 0-3 HPF (0-3); WBC/HPF 0-3 HPF (0-3)
[2023-06-22 14:34] LABS: Urine Culture Reflex No No
[2023-06-22] MEDS ORDERED: Ipratropium/Albuterol 3 ML NEB NEB PRN (15:25)
[2023-06-22] MEDS ORDERED: Acetaminophen 325 MG TAB PO PRN (15:30)
[2023-06-22] MEDS ORDERED: Ondansetron PF 4 MG/2 ML Vial IVP PRN (15:30)
[2023-06-22] MEDS ORDERED: Dextrose 50% Abboject 50 ML SYRINGE SLOW IVP PRN (15:39)
[2023-06-22] MEDS ORDERED: HumaLOG 300 UNITS/3 ML VIAL SC PRN (15:39)
[2023-06-22] MEDS ORDERED: Dextrose 5% in Water 1,000 ML IV PRN (15:39)
[2023-06-22] MEDS ORDERED: Glucagon 1 MG/ML KIT IM PRN (15:39)
[2023-06-22] MEDS ORDERED: Azithromycin 500 MG in Sodium Chloride 0.9% 250 ML 250 ML IVPB SCH (16:00)
[2023-06-22] MEDS: methylPREDNISolone Sod Succ 40 MG VIAL IVP SCH (18:32)
[2023-06-22 18:40] VITALS: BMI 36.0
[2023-06-22] MEDS: Ipratropium/Albuterol 3 ML NEB NEB SCH ×2 (19:06→22:23)
[2023-06-22] MEDS: Furosemide 40 MG (4 mL) VIAL SLOW IVP SCH (21:12)
[2023-06-22] MEDS ORDERED: Electrolyte Replacement Protocol 1 EACH FS PRN (22:44)
[2023-06-23] MEDS ORDERED: Ketorolac Tromethamine 30 MG (1 mL) VIAL IVP PRN (00:07)
[2023-06-23] MEDS: methylPREDNISolone Sod Succ 40 MG VIAL IVP SCH ×3 (00:34→12:10)
[2023-06-23 06:05] LABS: #Monocytes 0.1 thou/uL (0.11-0.59); #Neutrophils 4.9 thou/uL (1.40-6.50); %Lymphocytes 11.2 % (21.0-51.0); %Monocytes 2.3 % (0.0-10.0); %Neutrophils 85.8 % (42.0-75.0); Hematocrit 41.4 % (36.0-47.0); Hemoglobin 13.4 g/dL (12.0-16.0); Mean Corpuscular HGB CONC 32.4 g/dL (32.0-36.0); Mean Corpuscular Hemoglobin 28.2 pg (27.0-31.0); Mean Platelet Volume 9.2 fL (7.4-10.4); Platelet Count 258 10x3/uL (130-400); RBC Distribution Width 15.8 % (11.5-14.5); Red Blood Cell (RBC) Count 4.76 mill/uL (4.20-5.40); White Blood Cell (WBC) Count 5.7 10x3/uL (4.8-10.8)
[2023-06-23 06:26] LABS: Anion Gap 15 mmol/L (10-20); BUN (Urea Nitrogen) 20 mg/dL (9.8-20.1); Calc. Creatinine Clearance 83 mL/min (70-130); Calcium 9.4 mg/dL (7.8-10.44); Carbon Dioxide 32 mmol/L (23-31); Chloride 94 mmol/L (98-107); Estimated GFR 68; Glucose 167 mg/dL (80-115); Magnesium 2.2 mg/dL (1.6-2.6); Potassium 3.8 mmol/L (3.5-5.1); Sodium 137 mmol/L (136-145)
[2023-06-23] MEDS: Ipratropium/Albuterol 3 ML NEB NEB SCH ×2 (06:59→12:59)
[2023-06-23] MEDS ORDERED: Enoxaparin 40 MG (0.4 mL) SYRINGE SC SCH (09:00)
[2023-06-23] MEDS: Furosemide 40 MG (4 mL) VIAL SLOW IVP SCH (09:07)
[2023-06-23 11:41] VITALS: BP 141/91
[2023-06-23] MEDS ORDERED: cefTRIAXone\\ROCEPHIN 1 GM in Sodium Chloride 0.9% 100 ML IVPB SCH (12:00)
[2023-06-23 13:03] VITALS: TEMP 96.5
== END 2023-06-23 12:00 | disposition home or self-care (01) | DRG 193 ==
LOC: ERS 11:39 → IMCU/EMU 15:33
PROVIDERS: ADMIT Internal Medicine; ATTEND Internal Medicine
PROC: 5A09357 Assistance with Respiratory Ventilation, Less than 24 Consecutive Hours, Continuous Positive Airway Pressure (ICD-10-PCS; principal; 2023-06-22)
DX: J18.9 Pneumonia, unspecified organism (principal); I50.33 Acute on chronic diastolic (congestive) heart failure; J96.21 Acute and chronic respiratory failure with hypoxia; J96.22 Acute and chronic respiratory failure with hypercapnia; J44.1 Chronic obstructive pulmonary disease with (acute) exacerbation; I25.10 Atherosclerotic heart disease of native coronary artery without angina pectoris; E11.9 Type 2 diabetes mellitus without complications; G47.33 Obstructive sleep apnea (adult) (pediatric); M19.90 Unspecified osteoarthritis, unspecified site; M79.7 Fibromyalgia; F17.210 Nicotine dependence, cigarettes, uncomplicated; F41.9 Anxiety disorder, unspecified; F32.A Depression, unspecified; F43.10 Post-traumatic stress disorder, unspecified; Z88.5 Allergy status to narcotic agent; Z88.8 Allergy status to other drugs, medicaments and biological substances; Z79.899 Other long term (current) drug therapy; Z79.4 Long term (current) use of insulin; Z90.49 Acquired absence of other specified parts of digestive tract; Z90.710 Acquired absence of both cervix and uterus; Z98.51 Tubal ligation status; Z98.49 Cataract extraction status, unspecified eye
CPT/HCPCS: 36415; 36416; 71045; 80048; 80053; 81001; 83605; 83735; 83880; 84145; 85025; 85610; 85730; 87040; 93005; 93306; 96365; 96375; J0456; J0696; J1650; J1815; J1885; J1940; J2920; J3490; J7050; J7620

== ENCOUNTER 2023-08-11 12:35 | Emergency (ER) | payer OTHER ==
[2023-08-11] MEDS ORDERED: Cyclobenzaprine 10 MG TAB ONE (15:40)
[2023-08-11] MEDS ORDERED: Acetaminophen/Codeine 30-300mg Tablet ONE (15:40)
== END 2023-08-11 16:37 | disposition home or self-care (01) ==
LOC: ERS 12:35
DX: S50.12XA Contusion of left forearm, initial encounter (principal); S40.012A Contusion of left shoulder, initial encounter; J44.9 Chronic obstructive pulmonary disease, unspecified; F17.210 Nicotine dependence, cigarettes, uncomplicated; I50.9 Heart failure, unspecified; I25.10 Atherosclerotic heart disease of native coronary artery without angina pectoris; E11.9 Type 2 diabetes mellitus without complications; E78.00 Pure hypercholesterolemia, unspecified; Z79.4 Long term (current) use of insulin; Z79.02 Long term (current) use of antithrombotics/antiplatelets; Z79.899 Other long term (current) drug therapy; V49.9XXA Car occupant (driver) (passenger) injured in unspecified traffic accident, initial encounter

== ENCOUNTER 2023-11-09 13:46 | Emergency (ER) | payer OTHER ==
[2023-11-09] MEDS ORDERED: HYDROcodone/Acetaminophen 5/325 mg Tablet ONE (16:26)
== END 2023-11-09 19:33 | disposition home or self-care (01) ==
LOC: ERS 13:46
DX: M25.471 Effusion, right ankle (principal); I25.10 Atherosclerotic heart disease of native coronary artery without angina pectoris; I25.2 Old myocardial infarction; E11.9 Type 2 diabetes mellitus without complications; J44.9 Chronic obstructive pulmonary disease, unspecified; E78.00 Pure hypercholesterolemia, unspecified; E03.9 Hypothyroidism, unspecified; J45.909 Unspecified asthma, uncomplicated; F17.210 Nicotine dependence, cigarettes, uncomplicated; Z79.84 Long term (current) use of oral hypoglycemic drugs; Z79.899 Other long term (current) drug therapy; Z79.4 Long term (current) use of insulin

== ENCOUNTER 2023-11-14 11:53 | Outpatient (CLI) | payer OTHER | END 2023-11-14 11:54 | disposition home or self-care (01) | LOC: CT 11:53 | PROVIDERS: ATTEND Internal Medicine Critical Care Medicine | DX: R91.8 Other nonspecific abnormal finding of lung field (principal) | CPT/HCPCS: 71250 ==

== ENCOUNTER 2023-11-22 14:59 | Outpatient (CLI) | payer OTHER | END 2023-11-22 15:00 | disposition home or self-care (01) | LOC: BICMAMMO 14:59 | PROVIDERS: ATTEND Student in an Organized Health Care Education/Training Program | DX: Z12.31 Encounter for screening mammogram for malignant neoplasm of breast (principal); Z80.3 Family history of malignant neoplasm of breast | CPT/HCPCS: 77063; 77067 ==

== ENCOUNTER 2023-11-30 08:45 | Outpatient (CLI) | payer OTHER | END 2023-11-30 08:46 | disposition home or self-care (01) | LOC: PET 08:45 | PROVIDERS: ATTEND Radiology Radiation Oncology | DX: C34.11 Malignant neoplasm of upper lobe, right bronchus or lung (principal) | CPT/HCPCS: 78815; A9552 ==

== ENCOUNTER 2023-12-13 12:10 | Outpatient (CLI) | payer OTHER | END 2023-12-13 12:11 | disposition home or self-care (01) | LOC: MRI 12:10 | PROVIDERS: ATTEND Psychiatry & Neurology Neurology | DX: R56.9 Unspecified convulsions (principal); I67.89 Other cerebrovascular disease | CPT/HCPCS: 70551 ==

== ENCOUNTER 2024-05-24 09:28 | Outpatient (CLI) | payer OTHER ==
[~2024-05-24 09:28] MED LIST changes: +Iopamidol 370 76% 100 ML VIAL ONE; -Iopamidol-370 76% 500 ML 1 ML ONE
== END 2024-05-24 09:29 | disposition home or self-care (01) ==
LOC: CT 09:28
PROVIDERS: ATTEND Radiology Radiation Oncology
DX: C34.11 Malignant neoplasm of upper lobe, right bronchus or lung (principal); R59.0 Localized enlarged lymph nodes; J84.9 Interstitial pulmonary disease, unspecified
CPT/HCPCS: 36415; 71260; 82565; Q9967

== ENCOUNTER 2024-06-19 12:00 | Emergency (ER) | payer OTHER ==
[2024-06-19] MEDS ORDERED: Morphine 4 MG/ML VIAL ONE (12:55)
[2024-06-19] MEDS ORDERED: Ondansetron PF 4 MG/2 ML Vial ONE (12:55)
[2024-06-19] MEDS ORDERED: Bacitracin 1 PK ONE (12:55)
[2024-06-19] MEDS ORDERED: Boostrix 0.5 ML (Tdap) VIAL (>/=7 yrs of age) ONE (12:56)
== END 2024-06-19 14:30 | disposition home or self-care (01) ==
LOC: ERS 12:00
DX: T20.14XA Burn of first degree of nose (septum), initial encounter (principal); T31.0 Burns involving less than 10% of body surface; I11.0 Hypertensive heart disease with heart failure; I50.9 Heart failure, unspecified; I25.10 Atherosclerotic heart disease of native coronary artery without angina pectoris; I25.2 Old myocardial infarction; E11.9 Type 2 diabetes mellitus without complications; E78.5 Hyperlipidemia, unspecified; J44.9 Chronic obstructive pulmonary disease, unspecified; F17.210 Nicotine dependence, cigarettes, uncomplicated; Z95.5 Presence of coronary angioplasty implant and graft; Z23 Encounter for immunization; X08.8XXA Exposure to other specified smoke, fire and flames, initial encounter; Y93.89 Activity, other specified; Y92.009 Unspecified place in unspecified non-institutional (private) residence as the place of occurrence of the external cause
CPT/HCPCS: 90471; 90715; 96374; 96375; J2270; J2405

== ENCOUNTER 2024-12-26 12:15 | Emergency (ER) | payer MEDICAID ==
[2024-12-26] MEDS ORDERED: Ketorolac Tromethamine 30 MG (1 mL) VIAL ONE (12:33)
[2024-12-26] MEDS ORDERED: Benzonatate 100 MG CAP ONE (12:39)
[2024-12-26 12:54] LABS: #Basophils 0.04 10x3/uL (0.0-0.2); #Eosinophils 0.19 10x3/uL (0.0-0.7); #Monocytes 0.44 10x3/uL (0.11-0.59); #Neutrophils 6.87 10x3/uL (1.40-6.50); %Basophils 0.5 % (0.0-1.0); %Eosinophils 2.2 % (0.0-10.0); %Lymphocytes 13.9 % (21.0-51.0); %Monocytes 5.0 % (0.0-10.0); %Neutrophils 78.1 % (42.0-75.0); Hematocrit 37.4 % (36.0-47.0); Hemoglobin 11.8 g/dL (12.0-16.0); Mean Corpuscular Hemoglobin 27.6 pg (27.0-31.0); Mean Corpuscular Volume 87.6 fL (78.0-98.0); Platelet Count 360 10x3/uL (130-400); Red Blood Cell (RBC) Count 4.27 mill/uL (4.20-5.40); White Blood Cell (WBC) Count 8.79 10x3/uL (4.8-10.8)
[2024-12-26 13:13] LABS: Troponin I Less than 0.010 ng/mL (< 0.028)
[2024-12-26 13:15] LABS: ALT (SGPT) 8 U/L (Less than 34); AST (SGOT) 15 U/L (11-34); Albumin 3.3 g/dL (3.1-4.5); Alkaline Phosphatase 90 U/L (40-110); Anion Gap 14 mmol/L (10-20); BUN (Urea Nitrogen) 13 mg/dL (9.8-20.1); Bilirubin, Total 0.2 mg/dL (0.3-1.2); Calc. Creatinine Clearance 0 mL/min (70-130); Calcium 8.8 mg/dL (7.8-10.44); Carbon Dioxide 34 mmol/L (23-31); Chloride 92 mmol/L (98-107); Globulin 5.2 g/dL (2.4-3.5); Glucose 102 mg/dL (80-115); Lipase 6 U/L (8-78); Magnesium 1.7 mg/dL (1.6-2.6); Potassium 3.9 mmol/L (3.5-5.1); Sodium 136 mmol/L (136-145)
[2024-12-26] MEDS ORDERED: cefTRIAXone (ROCEPHIN) 1 GM VIAL ONE (13:58)
== END 2024-12-26 14:54 | disposition home or self-care (01) ==
LOC: ERS 12:15
DX: J44.9 Chronic obstructive pulmonary disease, unspecified (principal); F17.210 Nicotine dependence, cigarettes, uncomplicated; I11.0 Hypertensive heart disease with heart failure; I50.9 Heart failure, unspecified; E11.9 Type 2 diabetes mellitus without complications; Z55.6 Problems related to health literacy; Z99.81 Dependence on supplemental oxygen
CPT/HCPCS: 71045; 80053; 83605; 83690; 83735; 83880; 84484; 85025; 93005; 96374; 96375; J0696; J1885; J7620